=== PATIENT | female | born 1990 | race Native Hawaiian/Other Pacific Islander ===

== ENCOUNTER 2022-07-12 14:02 | Emergency (ER) | payer MEDICAID, SELFPAY ==
[2022-07-12 14:14] VITALS: BP 158/111; PULSE 76; RESP 21; TEMP 36.3; O2SAT 99; BMI 34.3
--- NOTE | 2022-07-12 15:19 | ED_ITS ---
HPI - General Adult General Time Seen by Provider: 15:19 <Kaylynn Knott MD - Last Filed: 07/12/22 15:46> Date Seen: 07/12/22 <Kaylynn Knott MD - Last Filed: 07/12/22 15:46> Chief complaint: Abdominal Pain <Kaylynn Knott MD - Last Filed: 07/12/22 15:46> Stated complaint: Vaginal bleeding, lightheaded <Kaylynn Knott MD - Last Filed: 07/12/22 15:46> Time Seen by Provider: 07/12/22 15:19 <Kaylynn Knott MD - Last Filed: 07/12/22 15:46> Source: patient and RN notes reviewed <Kaylnyn Knott MD - Last Filed: 07/12/22 15:46> Mode of arrival: ambulatory <Kaylynn Knott MD - Last Filed: 07/12/22 15:46> Limitations: no limitations <Kaylynn Knott MD - Last Filed: 07/12/22 15:46> History of Present Illness HPI narrative: Patient is a 31-year-old female coming in with heavy vaginal bleeding and pelvic pain. She is feeling pain shooting from her vaginal area into the rectal area. She has a history of irregular menses but notes since March her. Has been regular except that this cycle is early. She calculates that when she started bleeding she was on day 24 which should have been more mid cycle for her. Last year she did have evaluation for infertility, states she had a pelvic ultrasound, had an hCG and other workup with Dr. Pete. She has not been to date. She is not diabetic, has not noted other issues with bleeding. She is not have any problems with bleeding gums when she is brushing her teeth. Her mom has hypothyroidism and is diabetic. Patient has had her gallbladder out which is her only abdominal surgery. She felt nauseated when the pain became severe. She also describes significantly heavy bleeding. She states every time she standing upper moving she feels like she is wetting herself, she has been passing clots. No fevers. She denies any underlying urinary symptoms. <Kaylynn Knott MD - Last Filed: 07/12/22 15:46> Related Data Home medications: Previous Rx's Medication Instructions Recorded benzonatate 100 mg capsule 100 mg PO BID-TID PRN cough #14 06/01/22 caps <Kaylynn Knott MD - Last Filed: 07/12/22 15:46> Allergies/adverse reactions: Allergies Allergy/AdvReac Type Severity Reaction Status Date / Time avocado Allergy Unknown Itchy Verified 07/12/22 14:21 banana Allergy Unknown Itchy Verified 07/12/22 14:21 <Kaylynn Knott MD - Last Filed: 07/12/22 15:46> Review of Systems Status of ROS: Reports: 6 or more systems reviewed and unremarkable except as noted in History and below <Kaylynn Knott MD - Last Filed: 07/12/22 15:46> PFSH PFSH Medical History: Medical History Abrasion Allergic reaction Cholelithiasis with acute cholecystitis History of chlamydia infection Laceration Suicidal ideation <Kaylynn Knott MD - Last Filed: 07/12/22 15:46> Surgical History: Surgical History History of bunionectomy of left great toe (2006) History of hand surgery (2006) History of third molar tooth extraction (2007) <Kaylynn Knott MD - Last Filed: 07/12/22 15:46> Family History: Family History Mother Diabetes Thyroid disease Other Lung cancer Stomach cancer <Kaylynn Knott MD - Last Filed: 07/12/22 15:46> Social History: Social History Narrative: Exercises regularly (3x/week, walks 30-40 min) , 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, 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, 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 Non-smoker Social drinker (3/week) Hx of drug abuse- cocaine, marijuana, none since 04/2016 Smoking Status: Never smoker Non-prescribed substance use: denies use service: No <Kaylynn Knott MD - Last Filed: 07/12/22 15:46> Exam Const: Vital Signs, click to edit/add: Vital Signs - 24 hr 07/12/22 14:14 07/12/22 15:32 07/12/22 17:06 Temperature 97.4 F L Pulse Rate [Pulse Oximeter] 76 67 Respiratory Rate 21 20 Blood Pressure [Ri ght Upper Arm] 158/111 H 150/86 H Pulse Oximetry 99 97 99 Oxygen Delivery Me thod Room Air Room Air 07/12/22 18:15 07/12/22 18:13 07/12/22 18:30 Temperature Pulse Rate [Pulse Oximeter] 65 76 Respiratory Rate 18 18 Blood Pressure [Ri ght Upper Arm] 137/86 137/86 133/93 H Pulse Oximetry 98 98 Oxygen Delivery Me thod Room Air Room Air <Kaylynn Knott MD - Last Filed: 07/12/22 15:46> Vital Signs, click to edit/add: Vital Signs - 24 hr 07/12/22 14:14 07/12/22 15:32 07/12/22 17:06 Temperature 97.4 F L Pulse Rate [Pulse Oximeter] 76 67 Respiratory Rate 21 20 Blood Pressure [Ri ght Upper Arm] 158/111 H 150/86 H Pulse Oximetry 99 97 99 Oxygen Delivery Me thod Room Air Room Air 07/12/22 18:15 07/12/22 18:13 07/12/22 18:30 Temperature Pulse Rate [Pulse Oximeter] 65 76 Respiratory Rate 18 18 Blood Pressure [Ri ght Upper Arm] 137/86 137/86 133/93 H Pulse Oximetry 98 98 Oxygen Delivery Me thod Room Air Room Air <Tony Poon MD - Last Filed: 07/12/22 20:36> Documenting provider has reviewed patient's vital signs: yes <Kaylynn Chen MD - Last Filed: 07/12/22 15:46> Common normals: no apparent distress, average body habitus, oriented x3, no limitations, healthy appearing and alert <Kaylynn Knott MD - Last Filed: 07/12/22 15:46> General appearance: cooperative, comfortable, well kempt and well developed <Kaylynn Knott MD - Last Filed: 07/12/22 15:46> HENMT: Common normals: normocephalic, head/scalp atraumatic and hearing gr ossly normal bilaterally <Kaylynn Knott MD - Last Filed: 07/12/22 15:46> Head and scalp: normocephalic and atraumatic <Kaylynn Knott MD - Last Filed: 07/12/22 15:46> Eye: Common normals: PERRL, EOMs intact bilaterally, conjunctivae normal and no scleral icterus <Kaylynn Knott MD - Last Filed: 07/12/22 15:46> Conjunctiva: conjunctiva(e) normal <Kaylynn Knott MD - Last Filed: 07/12/22 15:46> Pupil: PERRL <Kaylynn Knott MD - Last Filed: 07/12/22 15:46> Neck & C-Spine: Common normals: full ROM, no lymphadenopathy, supple, no meningeal signs, no JVD and thyroid normal <Kaylynn Knott MD - Last Filed: 07/12/22 15:46> Thyroid: thyroid normal <Kaylynn Knott MD - Last Filed: 07/12/22 15:46> Resp: Common normals: normal respiratory effort, no retractions, no use of accessory muscles and clear to auscultation bilaterally <Kaylynn De La Paz MD - Last Filed: 07/12/22 15:46> Auscultation: clear to auscultation bilaterally <Kaylynn Knott MD - Last Filed: 07/12/22 15:46> Cardio: Common normals: no JVD, regular rate, regular rhythm, S1 normal heart sound, S2 normal heart sound, no gallops, no clicks and no murmurs <Kaylynn Knott MD - Last Filed: 07/12/22 15:46> Rate: regular rate <Kaylynn Knott MD - Last Filed: 07/12/22 15:46> Rhythm: regular rhythm <Kaylynn Knott MD - Last Filed: 07/12/22 15:46> Heart sounds: S1 normal and S2 normal <Kaylynn Knott MD - Last Filed: 07/12/22 15:46> GI: Common normals: Normal to inspection, nondistended, normoactive bowel sounds present, soft to palpation, no hepatosplenomegaly and no masses <Kaylynn Knott MD - Last Filed: 07/12/22 15:46> Palpation: soft and no hepatosplenomegaly <Kaylynn Knott MD - Last Filed: 07/12/22 15:46> Other: Has some mild suprapubic tenderness on palpation but I do not sense any rebound or guarding. <Kaylynn Knott MD - Last Filed: 07/12/22 15:46> Neuro: Common normals: oriented x3 <Kaylynn Knott MD - Last Filed: 07/12/22 15:46> Sensorium/orientation: alert <Kaylynn Knott MD - Last Filed: 07/12/22 15:46> Meningeal signs: no meningeal signs <Kaylynn Knott MD - Last Filed: 07/12/22 15:46> Psych: Appearance: well kempt <Kaylynn Knott MD - Last Filed: 07/12/22 15:46> Course Course Hospital Course: Will establish an IV and monitor patient on pulse oximetry. With her cu rrent vital signs, she is not exhibiting hypotension or tachycardia that would suggest extensive blood loss. Will look in her records and see when her pelvic ultrasound was done, see if she has had a TSH done recently as well. Will confirm that there is no . This certainly could be irregular menstrual bleeding or anovulatory cycle. Will give her some Toradol. If her hCG qualitative is positive, will need to quantify the hCG level as well as obtaining a pelvic ultrasound. I took over this patient, 80 of her some morphine for discomfort we did do a pelvic ultrasound which showed a thick endometrial lining, I discussed the take case with our jack strip assembler DrJoey Puentes she has out sending her home would acute and follow-up with OBGYN would be appropriate. I went over the risks benefits and side effects, of this including further bleeding pain, treatment with ibuprofen and a small amount of pain medication. She was reassured by this. <Kaylynn Knott MD - Last Filed: 07/12/22 15:46> Vital Signs Vital signs: Initial Vital Signs Temperature 97.4 F L 07/12/22 14:14 Temperature Source Temporal Artery Scan 07/12/22 14:14 Pulse Rate 76 07/12/22 14:14 Pulse Rhythm 07/12/22 14:14 Pulse Strength 3+ Normal 07/12/22 14:14 Respiratory Rate 21 07/12/22 14:14 Blood Pressure 158/111 H 07/12/22 14:14 Blood Pressure Mean 126 07/12/22 14:14 Pulse Oximetry 99 07/12/22 14:14 Oxygen Delivery Method 07/12/22 14:14 Vital Signs Temperature 97.4 F L 07/12/22 14:14 Pulse Rate 76 07/12/22 14:14 Respiratory Rate 21 07/12/22 14:14 Blood Pressure 158/111 H 07/12/22 14:14 Pulse Oximetry 99 07/12/22 14:14 Oxygen Delivery Method 07/12/22 14:14 Temperature 97.4 F L 07/12/22 14:14 Pulse Rate 76 07/12/22 18:30 Respiratory Rate 18 07/12/22 18:30 Blood Pressure 133/93 H 07/12/22 18:30 Pulse Oximetry 98 07/12/22 18:30 Oxygen Delivery Method 07/12/22 18:30 <Kaylynn Knott MD - Last Filed: 07/12/22 15:46> Initial Vital Signs Temperature 97.4 F L 07/12/22 14:14 Temperature Source Temporal Artery Scan 07/12/22 14:14 Pulse Rate 76 07/12/22 14:14 Pulse Rhythm 07/12/22 14:14 Pulse Strength 3+ Normal 07/12/22 14:14 Respiratory Rate 21 07/12/22 14:14 Blood Pressure 158/111 H 07/12/22 14:14 Blood Pressure Mean 126 07/12/22 14:14 Pulse Oximetry 99 07/12/22 14:14 Oxygen Delivery Method 07/12/22 14:14 Vital Signs Temperature 97.4 F L 07/12/22 14:14 Pulse Rate 76 07/12/22 14:14 Respiratory Rate 21 07/12/22 14:14 Blood Pressure 158/111 H 07/12/22 14:14 Pulse Oximetry 99 07/12/22 14:14 Oxygen Delivery Method 07/12/22 14:14 Temperature 97.4 F L 07/12/22 14:14 Pulse Rate 76 07/12/22 18:30 Respiratory Rate 18 07/12/22 18:30 Blood Pressure 133/93 H 07/12/22 18:30 Pulse Oximetry 98 07/12/22 18:30 Oxygen Delivery Method 07/12/22 18:30 <Tony Poon MD - Last Filed: 07/12/22 20:36> Medical Decision Making MDM Narrative Medical decision making narrative: Differential diagnosis includes but is not limited to uterine fibroids, intrauterine , ectopic , placenta previa, spontaneous , and cancers of the uterus and cervix. This includes the life-threatening complications of hypovolemia secondary to bleeding, ectopic and cancer. <Tony Poon MD - Last Filed: 07/12/22 20:36> Medical Records Medical records reviewed: Yes I reviewed the patient's medical records <Kaylynn Knott MD - Last Filed: 07/12/22 15:46> Medical records narrative: TSH was normal at 2.050 on 11/19/2021. Hysterosalpingogram was normal on 07/23/2021 with normal spillage of contrast from fallopian tubes into peritoneum. No filling defect in the endometrium. Ultrasound done on 06/01/2021 showed thickened endometrium measuring 15 mm. No other findings. <Kaylynn Knott MD - Last Filed: 07/12/22 15:46> Lab Data Lab results reviewed: Yes I reviewed the patient's lab results <Tony Poon MD - Last Filed: 07/12/22 20:36> Labs: Lab Results 07/12/22 07/12/22 07/12/22 Range/Units 15:55 15:55 15:55 WBC 10.25 (4.50-11.00) K/uL RBC 4.94 (4.00-5.20) m/uL Hgb 15.4 (12.0-16.0) gm/dL Hct 43.7 (33.0-51.0) % MCV 89 (80-100) fL MCH 31 (26-34) pg MCHC 35 (32-36) gm/dL RDW Coeff of Summer 12.7 (11.5-15.5) % Plt Count 223 (140-440) K/uL Neut % (Auto) 69.2 (42.0-72.0) % Lymph % (Auto) 23.9 (20-44) % Kaufman % (Auto) 4.8 (0.0-11.0) % Eos % (Auto) 1.7 (0.0-7.0) % Baso % (Auto) 0.3 (0.0-3.0) % Neut # (Auto) 7.10 H (1.7-7.0) K/uL Lymph # (Auto) 2.45 (0.90-2.90) K/uL Kaufman # (Auto) 0.50 (0.00-0.90) K/UL Eos # (Auto) 0.17 (0.00-0.50) K/uL Baso # (Auto) 0.03 (0.00-0.30) K/uL Sodium 138 (135-149) mmol/L Potassium 3.1 L (3.6-5.1) mmol/L Chloride 107 (96-114) mmol/L Carbon Dioxide 22 (20-32) mmol/L BUN 7 (5-24) mg/dL Creatinine 0.5 (0.5-1.5) mg/dL Estimated Creat Clear 140.78 Estimated GFR 129 ml/min Glucose 112 (60-115) mg/dL Calcium 8.6 (8.4-10.6) mg/dL HCG, Qual Negative (Negative) <Kaylynn Knott MD - Last Filed: 07/12/22 15:46> Lab Results 07/12/22 07/12/22 07/12/22 Range/Units 15:55 15:55 15:55 WBC 10.25 (4.50-11.00) K/uL RBC 4.94 (4.00-5.20) m/uL Hgb 15.4 (12.0-16.0) gm/dL Hct 43.7 (33.0-51.0) % MCV 89 (80-100) fL MCH 31 (26-34) pg MCHC 35 (32-36) gm/dL RDW Coeff of Summer 12.7 (11.5-15.5) % Plt Count 223 (140-440) K/uL Neut % (Auto) 69.2 (42.0-72.0) % Lymph % (Auto) 23.9 (20-44) % Kaufman % (Auto) 4.8 (0.0-11.0) % Eos % (Auto) 1.7 (0.0-7.0) % Baso % (Auto) 0.3 (0.0-3.0) % Neut # (Auto) 7.10 H (1.7-7.0) K/uL Lymph # (Auto) 2.45 (0.90-2.90) K/uL Kaufman # (Auto) 0.50 (0.00-0.90) K/UL Eos # (Auto) 0.17 (0.00-0.50) K/uL Baso # (Auto) 0.03 (0.00-0.30) K/uL Sodium 138 (135-149) mmol/L Potassium 3.1 L (3.6-5.1) mmol/L Chloride 107 (96-114) mmol/L Carbon Dioxide 22 (20-32) mmol/L BUN 7 (5-24) mg/dL Creatinine 0.5 (0.5-1.5) mg/dL Estimated Creat Clear 140.78 Estimated GFR 129 ml/min Glucose 112 (60-115) mg/dL Calcium 8.6 (8.4-10.6) mg/dL HCG, Qual Negative (Negative) <Tony Poon MD - Last Filed: 07/12/22 20:36> Imaging Data Transvaginal ultrasound: Radiologist's impression: Patient: SHELLY BACH Facility: [facility] Site . Site : 1990 Study: US Pelvis -07/12/2022 5:57:52 PM Ordering Physician: Ayah Jimenez Final Report: INDICATION: Abdominal pain, menorrhagia. TECHNIQUE: Ultrasound pelvis transvaginal. Real-time sonographic images with spectral and color Doppler imaging of the ovaries were obtained. COMPARISON: Pelvic ultrasound dated 06/01/2021. FINDINGS: Uterus: 8.5 x 4.6 x 4.5 cm. Endometrium: Persistent mild abnormal thickening of the endometrium. The endometrial thickness measures 1.8 cm. Mass: No uterine fibroids identified. Free fluid: No significant pelvic free fluid. Right ovary: 3.3 x 2.2 x 2.4 cm. No ovarian or adnexal masses. Normal arterial and venous blood flow. Left ovary: 3.2 x 1.9 x 2.0 cm. No ovarian or adnexal masses. Normal arterial and venous blood flow. IMPRESSION: Persistent mild abnormal thickening of the endometrium, measuring up to 1.8 cm in thickness. This may reflect component of endometrial hyperplasia, recommend follow-up pelvic ultrasound in 6-12 weeks. Dictated by Ronny Trotter MD @ 07/12/2022 6:25:57 PM (Electronic Signature) <Tony Poon MD - Last Filed: 07/12/22 20:36> Discharge Plan Discharge Clinical Impression: Dysfunctional uterine bleeding, Abdominal pain <Kaylynn Knott MD - Last Filed: 07/12/22 15:46> Patient Disposition: Home w/ Parent or Adult <Kaylynn Knott MD - Last Filed: 07/12/22 15:46> Condition: Stable <Kaylynn Knott MD - Last Filed: 07/12/22 15:46> Instructions: Abnormal (Dysfunctional) Uterine Bleeding (ED), Abdominal Pain (ED) <Kaylynn Knott MD - Last Filed: 07/12/22 15:46> Additional Instructions: Home rest use of medications as directed, follow-up with OBGYN at the clinic, we discussed this. instymeds for pain medications, ibuprofen is a single best pain medication for your bleeding, <Kaylynn Knott MD - Last Filed: 07/12/22 15:46> Prescriptions: No Action benzonatate 100 mg capsule 100 mg PO BID-TID PRN (Reason: cough) Qty: 14 0RF <Kaylynn Knott MD - Last Filed: 07/12/22 15:46> Follow Up/Referrals: Roxanna Crawford MD [Staff Physician] - Lu Rosen DNP [Nurse Practitioner] - <Kaylynn Knott MD - Last Filed: 07/12/22 15:46> Stand Alone Forms: MyHealth Info Instructions <Kaylynn Knott MD - Last Filed: 07/12/22 15:46>
[2022-07-12 15:32] VITALS: O2SAT 97
[2022-07-12] MEDS: 0.9 % SODIUM CHLORIDE 1000 ml 1,000 ML IV (15:58)
[2022-07-12] MEDS: KETOROLAC 15 MG/ML inj IVP (15:59)
[2022-07-12 16:07] LABS: Basophils Absolute Auto 0.03 K/uL (0.00-0.30); Basophils Percent Auto 0.3 % (0.0-3.0); Eosinophils Absolute Auto 0.17 K/uL (0.00-0.50); Eosinophils Percent Auto 1.7 % (0.0-7.0); Hematocrit 43.7 % (33.0-51.0); Hemoglobin* 15.4 gm/dL (12.0-16.0); Immature Granulocytes Abs Auto 0.01 K/uL (0.00-0.30); Immature Granulocytes Pct Auto 0.1 %; Lymphocytes Absolute Auto 2.45 K/uL (0.90-2.90); Lymphocytes Percent Auto 23.9 % (20-44); Mean Corpuscular HGB Conc 35 gm/dL (32-36); Mean Corpuscular Hemoglobin 31 pg (26-34); Mean Corpuscular Volume 89 fL (80-100); Monocytes Percent Auto 4.8 % (0.0-11.0); Neutrophils Percent Auto 69.2 % (42.0-72.0); Platelet Count* 223 K/uL (140-440); RDW Coefficient of Variation % 12.7 % (11.5-15.5); Red Blood Count 4.94 m/uL (4.00-5.20); White Blood Count* 10.25 K/uL (4.50-11.00)
[2022-07-12 16:14] LABS: Slide Review Reflex No
[2022-07-12 16:23] LABS: Chloride* 107 mmol/L (96-114)
[2022-07-12 16:24] LABS: Potassium* 3.1 mmol/L (3.6-5.1); Sodium* 138 mmol/L (135-149)
[2022-07-12 16:26] LABS: Creatinine* 0.5 mg/dL (0.5-1.5); Est. Creatinine Clearance* 140.78; Estimated Glomerular Filt Rate 129 ml/min
[2022-07-12 16:27] LABS: Blood Urea Nitrogen* 7 mg/dL (5-24); Calcium* 8.6 mg/dL (8.4-10.6); Carbon Dioxide* 22 mmol/L (20-32); Glucose* 112 mg/dL (60-115)
[2022-07-12 17:02] LABS: HCG Qualitative Serum* Negative (Negative)
--- NOTE | 2022-07-12 17:05 | CRLHL7_ITS ---
For Patients: As a result of the Century Cures Act, medical imaging exams and procedure reports are released immediately into your electronic medical record. You may view this report before your referring provider. If you have questions, please contact your health care provider. INDICATION: Abdominal pain, menorrhagia. TECHNIQUE: Ultrasound pelvis transvaginal. Real-time sonographic images with spectral and color Doppler imaging of the ovaries were obtained. COMPARISON: Pelvic ultrasound dated 06/01/2021. FINDINGS: Uterus: 8.5 x 4.6 x 4.5 cm. Endometrium: Persistent mild abnormal thickening of the endometrium. The endometrial thickness measures 1.8 cm. Mass: No uterine fibroids identified. Free fluid: No significant pelvic free fluid. Right ovary: 3.3 x 2.2 x 2.4 cm. No ovarian or adnexal masses. Normal arterial and venous blood flow. Left ovary: 3.2 x 1.9 x 2.0 cm. No ovarian or adnexal masses. Normal arterial and venous blood flow. IMPRESSION: Persistent mild abnormal thickening of the endometrium, measuring up to 1.8 cm in thickness. This may reflect component of endometrial hyperplasia, recommend follow-up pelvic ultrasound in 6-12 weeks. Dictated by Ronny Trotter MD @ 07/12/2022 6:25:57 PM (Electronically Signed)
[2022-07-12 17:06] VITALS: BP 150/86; PULSE 67; RESP 20; O2SAT 99
[2022-07-12] MEDS: MORPHINE 4 MG/ML INJ IVP (17:39)
--- NOTE | 2022-07-12 17:44 | ED.NURSE ---
was up to commode had bloody. foul smelling urine with a few small clots.. wears a incontinent brief.
[2022-07-12 18:13] VITALS: BP 137/86
[2022-07-12 18:15] VITALS: BP 137/86; PULSE 65; RESP 18; O2SAT 98
[2022-07-12 18:30] VITALS: BP 133/93; PULSE 76; RESP 18; O2SAT 98
== END 2022-07-12 19:51 | disposition home or self-care (01) ==
PROVIDERS: Family Medicine; Emergency Provider Family Medicine
DX: N93.8 Other specified abnormal uterine and vaginal bleeding (principal); R10.9 Unspecified abdominal pain
CPT/HCPCS: 36415; 76830; 80048; 84703; 85025; 93976; 94761; 96361; 96374; 99284; J1885; J2270; J7030

== ENCOUNTER 2022-11-01 13:38 | Emergency (ER) | payer MEDICAID, SELFPAY ==
[2022-11-01] VITALS (16 sets, daily range): BP systolic 124–167; BP diastolic 77–112; PULSE 52–78; RESP 16; TEMP 37.1; O2SAT 96–100; BMI 37.1
--- NOTE | 2022-11-01 14:34 | ED_ITS ---
HPI - General Adult General Chief complaint: Shortness of Breath/Dyspnea Stated complaint: Shortness of breath Time Seen by Provider: 11/01/22 13:53 History of Present Illness HPI narrative: Patient has been dealing with infertility and heavy vaginal bleeding for a while now. Was in the ER for increased bleeding in june. This was controlled and then did not start bleeding again until September 08. Has been working with [facility]. Had a biopsy on 10/24 and patient was called on 10/28 stating it was disordered proliferance edometrium and needed to start on megestrol and see [facility] tomorrow. Patient stated she noticed the shortness of breath on monday when she took the full dose of this medication . Called today and was advised to come to the ER. Has been shakey, headache, and high BP. 32-year-old woman presenting to the emergency department with concern of I believe potential pulmonary embolus and on advice of clinic to present here for further evaluation. History of dysfunctional uterine bleeding recent biopsy showing a endometrial hyperplasia with atypia initiated on megestrol and to see [facility] tomorrow. Initiated on megestrol now having taken nearly 3 days. With 1st full dose she says she just felt shaky short of breath. Within a day bleeding had becomes can not. She decreased dosing due to what she thought were associated symptoms and then has noted darker with diff risk blood returned though not much more. Last night she also had right pelvic area pain but in particular leg cramps on the left at work probably keeping her awake. This is not a new phenomenon. At work today was still feeling this shortness of breath little more lightheaded checked her blood pressure and it was in 190/1 teens. Has been feeling like her heart is beating really hard. She has has not actually checked rate. This point called in. No fever. No cough or cold symptoms. Does not have a personal family history of coagulopathy a nor arrhythmia/dysrhythmia. Does have a history of PCOS. Becomes tearful recounting some of these symptoms. Prior to taking megestrol had not been on oral contraceptives. Otherwise been feeling bloated. Did manage to have a bowel movement overnight which did not change her symptoms. Related Data Previous Rx's Medication Instructions Recorded megestrol 40 mg tablet 80 mg (2 x 40 mg) PO BID #90 tabs 10/28/22 lorazepam 1 mg tablet 0.5 - 1 mg (0.5 - 1 x 1 mg) PO TID 11/01/22 PRN anxiety #8 tabs Allergies Allergy/AdvReac Type Severity Reaction Status Date / Time avocado Allergy Unknown Itchy Verified 11/01/22 13:46 banana Allergy Unknown Itchy Verified 11/01/22 13:46 Review of Systems Status of ROS: Reports: 6 or more systems reviewed and unremarkable except as noted in History and below PFSH PFSH Medical History Suicidal ideation ?R45.851 - Suicidal ideations (ICD-10) History of chlamydia infection ?Z86.19 - Personal history of other infectious and parasitic diseases (ICD- 10) Cholelithiasis with acute cholecystitis ?K80.00 - Calculus of gallbladder with acute cholecystitis without obstruction (ICD-10) Surgical History History of cholecystectomy ?Z90.49 - Acquired absence of other specified parts of digestive tract (ICD- 10) History of third molar tooth extraction (2007) ?K08.409 - Partial loss of teeth, unspecified cause, unspecified class (ICD- 10) History of hand surgery (2006) ?Z98.890 - Other specified postprocedural states (ICD-10) History of bunionectomy of left great toe (2006) ?Z98.890 - Other specified postprocedural states (ICD-10) Family History Mother Diabetes Thyroid disease Other Lung cancer Stomach cancer Social History Narrative: Exercises regularly (3x/week, walks 30-40 min) , 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 Clearly upset. Tears well up during conversation. She is little shaky. Mildly labored in breathing but not tachypneic. Lungs are clear. Heart with regular rate and rhythm though an occasional irregular beat. No murmur rub appreciated. Cranial nerves 2-12 look to be intact. Abdomen is soft and mildly tender in the right lower abdomen/pelvis. Lower extremities are without edema. Sense of fullness subjective to palpation of the left calf. Negative Homans. Const: Vital Signs, click to edit/add: Vital Signs - 24 hr 11/01/22 13:56 11/01/22 14:43 11/01/22 14:45 Temperature 98.8 F Pulse Rate 52 L 59 L Pulse Rate [Pulse Oximeter] 78 Respiratory Rate 16 Blood Pressure 137/92 H Blood Pressure [Ri ght Upper Arm] 167/112 H Pulse Oximetry 99 97 98 Oxygen Delivery Me thod Room Air 11/01/22 14:46 11/01/22 15:00 11/01/22 15:03 Temperature Pulse Rate 59 L 59 L 61 Pulse Rate [Pulse Oximeter] Respiratory Rate Blood Pressure 127/92 H Blood Pressure [Ri ght Upper Arm] Pulse Oximetry 98 97 97 Oxygen Delivery Me thod 11/01/22 15:15 11/01/22 15:30 11/01/22 15:32 Temperature Pulse Rate 57 L 55 L 61 Pulse Rate [Pulse Oximeter] Respiratory Rate Blood Pressure 124/77 Blood Pressure [Ri ght Upper Arm] Pulse Oximetry 98 96 98 Oxygen Delivery Me thod 11/01/22 15:45 11/01/22 16:00 11/01/22 16:02 Temperature Pulse Rate 54 L 56 L 58 L Pulse Rate [Pulse Oximeter] Respiratory Rate Blood Pressure 127/80 Blood Pressure [Ri ght Upper Arm] Pulse Oximetry 96 98 100 Oxygen Delivery Me thod 11/01/22 16:20 11/01/22 16:31 11/01/22 16:32 Temperature Pulse Rate 72 61 65 Pulse Rate [Pulse Oximeter] Respiratory Rate Blood Pressure 128/79 Blood Pressure [Ri ght Upper Arm] Pulse Oximetry 100 99 98 Oxygen Delivery Me thod 11/01/22 16:45 Temperature Pulse Rate 64 Pulse Rate [Pulse Oximeter] Respiratory Rate Blood Pressure Blood Pressure [Ri ght Upper Arm] Pulse Oximetry 98 Oxygen Delivery Me thod Documenting provider has reviewed patient's vital signs: yes Course Vital Signs Vital signs: Initial Vital Signs Temperature 98.8 F 11/01/22 13:56 Temperature Source Temporal Artery Scan 11/01/22 13:56 Pulse Rate 78 11/01/22 13:56 Pulse Rhythm Regular 11/01/22 13:56 Pulse Strength 3+ Normal 11/01/22 13:56 Respiratory Rate 16 11/01/22 13:56 Blood Pressure 167/112 H 11/01/22 13:56 Blood Pressure Mean 130 H 11/01/22 13:56 Blood Pressure Position Sitting 11/01/22 13:56 Pulse Oximetry 99 11/01/22 13:56 Oxygen Delivery Method Room Air 11/01/22 13:56 Vital Signs Temperature 98.8 F 11/01/22 13:56 Pulse Rate 78 11/01/22 13:56 Respiratory Rate 16 11/01/22 13:56 Blood Pressure 167/112 H 11/01/22 13:56 Pulse Oximetry 99 11/01/22 13:56 Oxygen Delivery Method Room Air 11/01/22 13:56 Temperature 98.8 F 11/01/22 13:56 Pulse Rate 64 11/01/22 16:45 Respiratory Rate 16 11/01/22 13:56 Blood Pressure 128/79 11/01/22 16:32 Pulse Oximetry 98 11/01/22 16:45 Oxygen Delivery Method Room Air 11/01/22 13:56 Medical Decision Making MDM Narrative Medical decision making narrative: Suspect this is primarily smoldering anxiety exacerbating most symptoms. Certainly has real concerns. Will screen with some labs looking for pulmonary emboli though I think this is less likely to be the issue. Place IV. Give lorazepam and reassess symptoms at that point. EKG looking for evidence of dysrhythmia. Recheck hemoglobin which was I believe 14.7 about 5 days ago. On reevaluation, is markedly improved. Understandably a little sleepy. Heart rate has come down and blood pressure quite improved to essentially normal. No longer with as much chest discomfort and not short of air. D-dimer is mildly elevated. Discussed that I suspect this is more related to known inflammatory process but can?t exactly rule out pulmonary embolus though vitals are good and related symptoms have essentially resolved. I think that anxiety still most likely explanation. We both agree to defer CT imaging, monitoring for worsening condition over the next couple of days. She has close follow up tomorrow. See patient discharge plan. Medical Records Medical records reviewed: Yes I reviewed the patient's medical records Lab Data Lab results reviewed: Yes I reviewed the patient's lab results Labs: Lab Results 11/01/22 Range/Units 14:30 WBC 10.05 (4.50-11.00) K/uL RBC 4.70 (4.00-5.20) m/uL Hgb 14.4 (12.0-16.0) gm/dL Hct 42.0 (33.0-51.0) % MCV 89 (80-100) fL MCH 31 (26-34) pg MCHC 34 (32-36) gm/dL RDW Coeff of Summer 12.1 (11.5-15.5) % Plt Count 243 (140-440) K/uL Neut % (Auto) 62.7 (42.0-72.0) % Lymph % (Auto) 28.9 (20-44) % [place] % (Auto) 5.9 (0.0-11.0) % Eos % (Auto) 2.1 (0.0-7.0) % Baso % (Auto) 0.2 (0.0-3.0) % Neut # (Auto) 6.31 (1.7-7.0) K/uL Lymph # (Auto) 2.90 (0.90-2.90) K/uL [place] # (Auto) 0.60 (0.00-0.90) K/UL Eos # (Auto) 0.21 (0.00-0.50) K/uL Baso # (Auto) 0.02 (0.00-0.30) K/uL D-Dimer Quant (PE/DVT) 0.73 H (0.00-0.50) ug/ml Sodium 140 (135-149) mmol/L Potassium 3.7 (3.6-5.1) mmol/L Chloride 105 (96-114) mmol/L Carbon Dioxide 23 (20-32) mmol/L BUN 9 (5-24) mg/dL Creatinine 0.6 (0.5-1.5) mg/dL Estimated Creat Clear 116.24 Estimated GFR 122 ml/min Glucose 93 (60-115) mg/dL Calcium (8.4-10.6) mg/dL ECG Data Attestation: I personally reviewed and interpreted this ECG as follows: (Sinus bradycardia. Rate of 58 no acute ischemic changes) Discharge Plan Discharge Clinical Impression: DUB (dysfunctional uterine bleeding), Anxiety Patient Disposition: Home w/ Parent or Adult Condition: Improved Additional Instructions: I think it has been a beautiful day. Some exercise outside might do you good. Otherwise stay well hydrated. Return for increasing bleeding where would be soaking through 1 heavy pad an hour for 2 consecutive hours. Of course follow-up as scheduled tomorrow. can take lorazepam for recurrence of today's symptoms but return for increasing and persistent shortness of breath, increasing chest pain, worsening lightheadedness. Prescriptions: New lorazepam 1 mg tablet 0.5 - 1 mg PO TID PRN (Reason: anxiety) Qty: 8 0RF No Action megestrol 40 mg tablet 80 mg PO BID Qty: 90 1RF Follow Up/Referrals: Provider,Not a Local [Primary Care Provider] - Stand Alone Forms: [employer] Info Instructions
[2022-11-01 14:47] LABS: Basophils Absolute Auto 0.02 K/uL (0.00-0.30); Basophils Percent Auto 0.2 % (0.0-3.0); Eosinophils Absolute Auto 0.21 K/uL (0.00-0.50); Eosinophils Percent Auto 2.1 % (0.0-7.0); Hemoglobin* 14.4 gm/dL (12.0-16.0); Immature Granulocytes Abs Auto 0.02 K/uL (0.00-0.30); Immature Granulocytes Pct Auto 0.2 %; Lymphocytes Percent Auto 28.9 % (20-44); Mean Corpuscular HGB Conc 34 gm/dL (32-36); Mean Corpuscular Hemoglobin 31 pg (26-34); Mean Corpuscular Volume 89 fL (80-100); Monocytes Percent Auto 5.9 % (0.0-11.0); Neutrophils Absolute Auto 6.31 K/uL (1.7-7.0); Neutrophils Percent Auto 62.7 % (42.0-72.0); Platelet Count* 243 K/uL (140-440); RDW Coefficient of Variation % 12.1 % (11.5-15.5); White Blood Count* 10.05 K/uL (4.50-11.00)
[2022-11-01] MEDS: LORazepam 2 MG/ML inj 0.5 MG IVP (14:47)
[2022-11-01] MEDS: 0.9 % SODIUM CHLORIDE 1000 ml 1,000 ML IV (14:48)
[2022-11-01 14:52] LABS: Slide Review Reflex No
[2022-11-01 14:59] LABS: Blood Urea Nitrogen* 9 mg/dL (5-24); Carbon Dioxide* 23 mmol/L (20-32); Chloride* 105 mmol/L (96-114); Creatinine* 0.6 mg/dL (0.5-1.5); Est. Creatinine Clearance* 116.24; Estimated Glomerular Filt Rate 122 ml/min; Potassium* 3.7 mmol/L (3.6-5.1); Sodium* 140 mmol/L (135-149)
[2022-11-01 15:00] LABS: Glucose* 93 mg/dL (60-115)
[2022-11-01 15:08] LABS: D Dimer Quantitative* 0.73 ug/ml (0.00-0.50)
== END 2022-11-01 16:56 | disposition home or self-care (01) ==
PROVIDERS: Emergency Provider Family Medicine
DX: N93.8 Other specified abnormal uterine and vaginal bleeding (principal); F41.9 Anxiety disorder, unspecified
CPT/HCPCS: 36415; 80048; 85025; 85379; 93005; 96361; 96374; 99284; J2060; J7030

== ENCOUNTER 2023-01-27 06:36 | Emergency (ER) | payer MEDICAID, SELFPAY ==
[2023-01-27 06:46] VITALS: BP 158/96; PULSE 79; RESP 16; TEMP 36; O2SAT 98; BMI 38.4
--- NOTE | 2023-01-27 07:28 | CRLHL7_ITS ---
For Patients: As a result of the Century Cures Act, medical imaging exams and procedure reports are released immediately into your electronic medical record. You may view this report before your referring provider. If you have questions, please contact your health care provider. DATE: 01/27/2023 CLINICAL HISTORY: Patient with left sided numbness. TECHNIQUE: Standard helical CT image acquisition through the intracranial circulation following intravenous administration of contrast material with bolus tracking. 2D and 3D MIP images for post-processing were performed and interpreted on an independent workstation and 3D images were permanently archived. COMPARISON: CT same day. FINDINGS: There is no cerebral aneurysm or large vessel occlusion. The right internal carotid artery is normal. The right middle cerebral artery and its branches are normal. The right anterior cerebral artery and its branches are normal. The left internal carotid artery is normal. The left middle cerebral artery and its branches are normal. The left anterior cerebral artery and its branches are normal. The anterior communicating artery is well visualized and appears normal. The right vertebral artery and PICA are normal. The left vertebral artery and PICA are normal. The vertebral arteries are codominant. The basilar artery is patent and appears normal. The right posterior cerebral artery is normal. The left posterior cerebral artery is normal. The visualized venous structures are patent. IMPRESSION: Normal CT angiogram of the head without intracranial aneurysm or other neurovascular abnormality. Please note that all CT scans at this facility use dose modulation, iterative reconstruction, and/or weight-based dosing when appropriate to reduce radiation dose to as low as reasonably achievable. Dictated by Tanya Jackson MD @ 01/27/2023 11:59:44 AM (Electronically Signed)
--- NOTE | 2023-01-27 07:28 | CRLHL7_ITS ---
For Patients: As a result of the Century Cures Act, medical imaging exams and procedure reports are released immediately into your electronic medical record. You may view this report before your referring provider. If you have questions, please contact your health care provider. INDICATION: Left-sided numbness. COMPARISON: 09/02 TECHNIQUE: Noncontrast CT head. FINDINGS: Normal brain parenchymal morphology. Focal collection of CSF attenuation adjacent to the anterior left temporal lobe consistent with arachnoid cyst. No acute intracranial hemorrhage. No acute infarct. No midline shift. No abnormal ventricular dilatation. Normal calvarium and skull base. Visualized paranasal sinuses and mastoid air cells are clear. Normal orbits bilaterally. IMPRESSION: 1. No interval change 2. No acute intracranial abnormality. Please note that all CT scans at this facility use dose modulation, iterative reconstruction, and/or weight-based dosing when appropriate to reduce radiation dose to as low as reasonably achievable. Dictated by Julius Winn MD @ 01/27/2023 8:35:53 AM (Electronically Signed)
--- NOTE | 2023-01-27 07:35 | CRLHL7_ITS ---
For Patients: As a result of the Century Cures Act, medical imaging exams and procedure reports are released immediately into your electronic medical record. You may view this report before your referring provider. If you have questions, please contact your health care provider. DATE: 01/27/2023 CLINICAL HISTORY: Patient with left-sided numbness. TECHNIQUE: Standard helical CT image acquisition of the neck up to the skull base after bolus intravenous contrast enhancement. 2D and 3D MIP images for post-processing were performed and interpreted on an independent workstation and 3D images were permanently archived. COMPARISON: CT same day. FINDINGS: The origins of the great vessels from the aortic arch are patent. The origin of the right vertebral artery is patent. The origin of the left vertebral artery is patent. The common carotid arteries are patent. There is no stenosis at the origin of the right internal carotid artery. There is no stenosis at the origin of the left internal carotid artery. The rest of the cervical segments of the internal carotid arteries are patent up to the skull base. The right vertebral artery is dominant. The cervical segments of the vertebral arteries are patent up to the skull base. The visualized lung apices are unremarkable. The thyroid gland is unremarkable. The soft tissues of the neck are unremarkable. There are degenerative changes in the cervical spine. IMPRESSION: Normal CT angiogram of the neck. Please note that all CT scans at this facility use dose modulation, iterative reconstruction, and/or weight-based dosing when appropriate to reduce radiation dose to as low as reasonably achievable. Dictated by Tanya Jackson MD @ 01/27/2023 11:57:25 AM (Electronically Signed)
--- NOTE | 2023-01-27 07:47 | ED_ITS ---
HPI - General Adult General Date Seen: 01/27/23 Chief complaint: Neuro Symptoms/Altered Deficit Stated complaint: L side of body numb/tingly Time Seen by Provider: 01/27/23 07:04 Source: patient Mode of arrival: ambulatory Limitations: no limitations History of Present Illness HPI narrative: Patient is a 32-year-old female who presents with left-sided numbness that has been progressive over the past 48 hours. This began in her left hand and arm which she attributed to just sleeping wrong. The numbness has now progressed to the left side of her face and her left leg. There is no associated weakness. Her skin feels like there are ants crawling on it. She has not noticed a facial droop, slurred speech, blurry vision. She has been able to continue to use the arm and leg normally but catches herself rubbing the hand and forearm. She has been under a great deal of stress recently. Her recently had to return to [place] for some immigration testing. She stopped taking Megace last week as it was causing weight gain. She had an IUD placed and then removed in early November because of pain and placement in the cervical canal. Last week the IUD was replaced and she is having some uterine cramping but nothing severe. She carries diagnosis of stage I endometrial cancer. She is not a smoker. She has had elevated blood pressures. She is not currently on any medications. Related Data Allergies Allergy/AdvReac Type Severity Reaction Status Date / Time avocado Allergy Unknown Itchy Verified 01/27/23 08:04 banana Allergy Unknown Itchy Verified 01/27/23 08:04 Review of Systems Narrative: Review of systems is outlined above otherwise noted to be negative. [facility] Medical History Suicidal ideation ?R45.851 - Suicidal ideations (ICD-10) History of chlamydia infection ?Z86.19 - Personal history of other infectious and parasitic diseases (ICD- 10) Cholelithiasis with acute cholecystitis ?K80.00 - Calculus of gallbladder with acute cholecystitis without obstruction (ICD-10) Surgical History History of cholecystectomy ?Z90.49 - Acquired absence of other specified parts of digestive tract (ICD- 10) History of third molar tooth extraction (2007) ?K08.409 - Partial loss of teeth, unspecified cause, unspecified class (ICD- 10) History of hand surgery (2006) ?Z98.890 - Other specified postprocedural states (ICD-10) History of bunionectomy of left great toe (2006) ?Z98.890 - Other specified postprocedural states (ICD-10) Family History Mother Diabetes Thyroid disease Other Lung cancer Stomach cancer Social History Narrative: Exercises regularly (3x/week, walks 30-40 min) , 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 Blood pressure is mildly elevated. HEENT: Conjunctiva clear. Tympanic membranes are pearly white bilaterally. Posterior pharynx is clear without erythema or exudate. Neck is supple without adenopathy, thyromegaly, carotid bruit. Lungs: Clear to auscultation in all klein. No wheezes, rales, rhonchi. Heart: Regular rate and rhythm without murmur. Abdomen: Soft and nontender. No guarding, rigidity, rebound. Bowel sounds are normal. No palpable masses. Extremities: No cyanosis or edema. Good distal pulses. Skin: No abnormalities noted of the exposed skin. Neurologic: Awake, alert, fully oriented. Funduscopic exam is normal. Extraocular movements are normal. She notes diminished sensation in her left forearm, cheek, chin. No facial droop. Tongue protrudes in the midline. Her smile is symmetric. Her speech is clear. She notices decreased sensation in her entire left arm and her anterior left thigh. She has normal strength bilaterally. Her ribbon tier strength may be diminished on the left compared to the right. Lower extremity strength is normal. Reflexes are symmetric. Fine finger movements are normal. Const: Vital Signs, click to edit/add: Vital Signs - 24 hr 01/27/23 06:46 Temperature 96.8 F L Pulse Rate [Left P ulse Oximeter] 79 Respiratory Rate 16 Blood Pressure [Ri ght Upper Arm] 158/96 H Pulse Oximetry 98 Oxygen Delivery Me thod Room Air Course Course Hospital Course: Patient was seen and examined. Labs ordered include CBC, BMP, TSH. CT angio of her head and neck is ordered along with a CT of her brain with contrast. Patient's care is turned over to Dr. Mendoza at change of shift. Vital Signs Vital signs: Initial Vital Signs Temperature 96.8 F L 01/27/23 06:46 Temperature Source Temporal Artery Scan 01/27/23 06:46 Pulse Rate 79 01/27/23 06:46 Respiratory Rate 16 01/27/23 06:46 Blood Pressure 158/96 H 01/27/23 06:46 Blood Pressure Mean 116 H 01/27/23 06:46 Blood Pressure Position Sitting 01/27/23 06:46 Pulse Oximetry 98 01/27/23 06:46 Oxygen Delivery Method Room Air 01/27/23 06:46 Vital Signs Temperature 96.8 F L 01/27/23 06:46 Pulse Rate 79 01/27/23 06:46 Respiratory Rate 16 01/27/23 06:46 Blood Pressure 158/96 H 01/27/23 06:46 Pulse Oximetry 98 01/27/23 06:46 Oxygen Delivery Method Room Air 01/27/23 06:46 Temperature 96.8 F L 01/27/23 06:46 Pulse Rate 79 01/27/23 06:46 Respiratory Rate 16 01/27/23 06:46 Blood Pressure 158/96 H 01/27/23 06:46 Pulse Oximetry 98 01/27/23 06:46 Oxygen Delivery Method Room Air 01/27/23 06:46 Medical Decision Making Lab Data Labs: Lab Results 01/27/23 Range/Units 07:37 WBC 10.08 (4.50-11.00) K/uL RBC 5.05 (4.00-5.20) m/uL Hgb 15.1 (12.0-16.0) gm/dL Hct 43.2 (33.0-51.0) % MCV 86 (80-100) fL MCH 30 (26-34) pg MCHC 35 (32-36) gm/dL RDW Coeff of Summer 12.7 (11.5-15.5) % Plt Count 255 (140-440) K/uL Neut % (Auto) 71.0 (42.0-72.0) % Lymph % (Auto) 20.5 (20-44) % [place] % (Auto) 6.3 (0.0-11.0) % Eos % (Auto) 1.8 (0.0-7.0) % Baso % (Auto) 0.3 (0.0-3.0) % Neut # (Auto) 7.16 H (1.7-7.0) K/uL Lymph # (Auto) 2.07 (0.90-2.90) K/uL [place] # (Auto) 0.60 (0.00-0.90) K/UL Eos # (Auto) 0.18 (0.00-0.50) K/uL Baso # (Auto) 0.03 (0.00-0.30) K/uL Abs Immat Gran (auto) 0.01 (0.00-0.30) K/uL Imm/Tot Granulo (auto) 0.1 % Discharge Plan Discharge Follow Up/Referrals: Adalberto Todd MD [Primary Care Provider] -
[2023-01-27 07:50] LABS: Basophils Absolute Auto 0.03 K/uL (0.00-0.30); Basophils Percent Auto 0.3 % (0.0-3.0); Eosinophils Absolute Auto 0.18 K/uL (0.00-0.50); Eosinophils Percent Auto 1.8 % (0.0-7.0); Hematocrit 43.2 % (33.0-51.0); Hemoglobin* 15.1 gm/dL (12.0-16.0); Immature Granulocytes Abs Auto 0.01 K/uL (0.00-0.30); Immature Granulocytes Pct Auto 0.1 %; Lymphocytes Absolute Auto 2.07 K/uL (0.90-2.90); Lymphocytes Percent Auto 20.5 % (20-44); Mean Corpuscular HGB Conc 35 gm/dL (32-36); Mean Corpuscular Hemoglobin 30 pg (26-34); Mean Corpuscular Volume 86 fL (80-100); Monocytes Percent Auto 6.3 % (0.0-11.0); Neutrophils Absolute Auto 7.16 K/uL (1.7-7.0); Platelet Count* 255 K/uL (140-440); RDW Coefficient of Variation % 12.7 % (11.5-15.5); Red Blood Count 5.05 m/uL (4.00-5.20); White Blood Count* 10.08 K/uL (4.50-11.00)
[2023-01-27 08:00] LABS: Slide Review Reflex No
[2023-01-27] MEDS: ONDANSETRON 2 MG/ML inj 4 MG IVP (08:11)
[2023-01-27] MEDS: ACETAMINOPHEN 500 MG TABLET 1000 MG PO (08:11)
[2023-01-27 08:14] LABS: Chloride* 106 mmol/L (96-114); Sodium* 139 mmol/L (135-149)
[2023-01-27 08:15] LABS: Potassium* 3.3 mmol/L (3.6-5.1)
[2023-01-27 08:17] LABS: Blood Urea Nitrogen* 4 mg/dL (5-24); Carbon Dioxide* 24 mmol/L (20-32); Creatinine* 0.5 mg/dL (0.5-1.5); Est. Creatinine Clearance* 139.49; Estimated Glomerular Filt Rate 128 ml/min
[2023-01-27 08:18] LABS: Calcium* 8.4 mg/dL (8.4-10.6); Glucose* 126 mg/dL (60-115)
--- NOTE | 2023-01-27 09:05 | ED.NURSE ---
stroke/neuro paged @[phone].
[2023-01-27 09:35] VITALS: BP 138/74; PULSE 70; RESP 16; TEMP 36; O2SAT 98
== END 2023-01-27 09:35 | disposition home or self-care (01) ==
PROVIDERS: Family Medicine; Emergency Provider Family Medicine; PCP Internal Medicine
DX: R20.0 Anesthesia of skin (principal)
CPT/HCPCS: 36415; 70450; 70496; 70498; 80048; 84443; 85025; 96374; 99284; A9270; J2405; Q9967

== ENCOUNTER 2023-05-09 15:50 | Outpatient (CLI) | payer MEDICAID, SELFPAY | END 2023-05-09 15:51 | disposition home or self-care (01) | PROVIDERS: PCP Internal Medicine; Visit Provider Internal Medicine | DX: N85.02 Endometrial intraepithelial neoplasia [EIN] (principal) | CPT/HCPCS: 80048; 85610 ==

== ENCOUNTER 2024-02-21 07:29 | Outpatient (CLI) | payer OTHER, MEDICAID, SELFPAY ==
--- OUTSIDE RECORDS SUMMARY | 2024-02-21 07:31 | XMS_ITS | Continuity of Care Document ---
Author Organization [facility] Address [address] [address] [place] [address] Phone Care Team Providers Care Weight Reduction Specialist Name Role Phone Finn DIAMOND, Alejo Unavailable Unavailable Medications Medication Instructions Dosage Effective Dates (start - stop) Status Comments tetracycline 500 mg capsule take 1 capsule by oral route 4 times every day 500 MG - Active Pepto-Bismol 262 mg tablet take 1 tablet by oral route 4 times every day 1 tablet - Active metronidazole 250 mg tablet take 1 tablet by oral route 4 times every day 250 MG - Active furosemide 20 mg tablet take 1 tablet by oral route every day 20 MG - Active Provera 10 mg tablet take 1 tablet by or al route every day 10 MG - Active Topamax 50 mg tablet take 1 tablet by or al route 2 times every day 50 MG - Active omeprazole 40 mg capsule,delayed release take 1 capsule by oral route every morning on empty stomach, 30 minutes before your first meal of the day - Active Procedures Procedure Date Colonoscopy Flex; W/bx 1/mx Ugi Endo; W/bx 1/mx Level Iv-surg Path Gross/micro 24 Offic/outpt E&m New Mod-hi Routine Serum Collection Advance Directives Directive Yes / No Effective Date File Name No Information Encounters Encounter Description Practice Location Reason(s) For Visit Diagnoses Date Provider Providers Copied on Encounter [facility], [address] [address], [place], [id number], [place] tel:[phone] [facility] No Information 4 Finn Dhillon. [address], [place], [place], [id number] , [place]. tel: [phone] [facility], [address] [address], [place], [id number], [place] tel:[phone] [facility] H. pylori infection 4 Jamie Carrero. [address], [place], [place], [id number] , [place]. tel: [phone] [facility], [address] [address], [place], [id number], [place] tel:[phone] [facility] No Information 4 Jamie Carrero. [address], [place], [place], [id number] , [place]. tel: [phone] [facility], [address] [address], [place], [id number], [place] tel:[phone] [facility] GI Symptoms or Concerns (chief complaint) Gastritis determined by endoscopyDiverticul osis of colon without diverticulitisAlter ed bowel habitsOther gastritis without bleedingHelicobacte r pylori as the cause of diseases classd elswhrLymphocytosis (symptomatic) 4 Jamie Carrero. [address] [facility], [place], [place], [id number] , [place]. tel: [phone] Referring Provider: Referral Self, USE FOR SELF REFERRALS. [facility], [address] [address], [place], [place], [id number], [place] tel:[phone] [facility] No Information 4 Boogie Hernandez. [address], [place], [place], [id number] , [place]. tel: [phone] Offic/outpt E&m New Mod-hi [facility], [address] [address], [place], [id number], [place] tel:[phone] [facility] GI Symptoms or Concerns (chief complaint) Epigastric abdominal painNauseaRectal bleeding 4 Finn Dhillon. [address] [facility], [facility] [address], [place], [id number] , [place]. [phone] Referring Provider: Junie Barnes MD R, [address] [facility] [address], [place], [address]. tel:[phone] [facility], [address] [address], [place], [id number], [place] tel:[phone] [facility] No Information 4 Boogie Hernandez. [address] [facility] [address], [facility] [address], [place], [id number] , [place]. tel: [phone] Family History Family Member Type Diagnosis Age At Onset No Information Immunizations Vaccine Date Status Comments Influenza administered Note: [facility] bi-d irectional interface ; Source: Other Registry SARS-COV-2 (COVID-19) vaccin e, mRNA, spike protein, LNP, preservative free, 30 mcg/0.3mL dose administered Note: [facility] bi-direct ional interface ; Source: Other Registry SARS-COV-2 (COVID-19) vaccin e, mRNA, spike protein, LNP, preservative free, 30 mcg/0.3mL dose administered Note: [facility] bi-direct ional interface ; Source: Other Registry SARS-COV-2 (COVID-19) vaccin e, mRNA, spike protein, LNP, preservative free, 30 mcg/0.3mL dose administered Note: [facility] bi-direct ional interface ; Source: Other Registry Afluria Qd administered Note: [facility] bi-directional interface ; Source: Other Registry Influenza, split virus, trivalent, injectable, preservative free administered Note: [facility] bi-direct ional interface ; Source: Other Registry Influenza, seasonal, injecta ble, preservative free administered Note: [facility] bi-direct ional interface ; Source: Other Registry tetanus toxoid, reduced diphtheria toxoid, and acellular pertussis vaccine, adsorbed administered Note: [facility] b i-directional interface ; Source: Other Registry Energix Pediatric administered Note: [facility] bi-directional interface ; Source: Other Registry tetanus toxoid, reduced diphtheria toxoid, and acellular pertussis vaccine, adsorbed administered Note: [facility] b i-directional interface ; Source: Other Registry Havrix administered Note: [facility] bi-d irectional interface ; Source: Other Registry influenza virus vaccine, unspecified formulation administered Note: [facility] bi-di rectional interface ; Source: Other Registry human papilloma virus vaccin e, quadrivalent administered Note: [facility] bi-direct ional interface ; Source: Other Registry Havrix pediatric administered Note: [facility] bi-directional interface ; Source: Other Registry human papilloma virus vaccin e, quadrivalent administered Note: [facility] bi-direct ional interface ; Source: Other Registry human papilloma virus vaccin e, quadrivalent administered Note: [facility] bi-direct ional interface ; Source: Other Registry Havrix pediatric administered Note: [facility] bi-directional interface ; Source: Other Registry hepatitis B vaccine, unspeci fied formulation administered Note: [facility] bi-direct ional interface ; Source: Other Registry hepatitis B vaccine, unspeci fied formulation administered Note: [facility] bi-direct ional interface ; Source: Other Registry hepatitis B vaccine, unspeci fied formulation administered Note: [facility] bi-direct ional interface ; Source: Other Registry diphtheria, tetanus toxoids and acellular pertussis vaccine administered Note: [facility] b i-directional interface ; Source: Other Registry poliovirus vaccine, inactivated administe red Note: [facility] bi- directional interface ; Source: Other Registry measles, mumps and rubella v irus vaccine administered Note: [facility] bi-direct ional interface ; Source: Other Registry diphtheria, tetanus toxoids and acellular pertussis vaccine administered Note: [facility] b i-directional interface ; Source: Other Registry poliovirus vaccine, inactivated administe red Note: [facility] bi- directional interface ; Source: Other Registry Haemophilus influenzae type b vaccine, conjugate unspecified formulation administered Note: [facility] bi-direct ional interface ; Source: Other Registry measles, mumps and rubella v irus vaccine administered Note: [facility] bi-direct ional interface ; Source: Other Registry Haemophilus influenzae type b vaccine, conjugate unspecified formulation administered Note: [facility] bi-direct ional interface ; Source: Other Registry poliovirus vaccine, inactivated administe red Note: [facility] bi- directional interface ; Source: Other Registry diphtheria, tetanus toxoids and acellular pertussis vaccine administered Note: [facility] b i-directional interface ; Source: Other Registry poliovirus vaccine, inactivated administe red Note: [facility] bi- directional interface ; Source: Other Registry Haemophilus influenzae type b vaccine, conjugate unspecified formulation administered Note: [facility] bi-direct ional interface ; Source: Other Registry diphtheria, tetanus toxoids and acellular pertussis vaccine administered Note: [facility] b i-directional interface ; Source: Other Registry poliovirus vaccine, inactivated administe red Note: [facility] bi- directional interface ; Source: Other Registry Haemophilus influenzae type b vaccine, conjugate unspecified formulation administered Note: [facility] bi-direct ional interface ; Source: Other Registry diphtheria, tetanus toxoids and acellular pertussis vaccine administered Note: [facility] b i-directional interface ; Source: Other Registry Payers Payer name Insurance type Covered alliance party ID Rosamaria yanezvalentina(s) [employer] CI [id number] [place] [employer] CI [id number] Social History Type Description Quantity Date Captured Comments Sex Female Smoking Status No Information Chief Complaint And Reason For Visit No Information Reason For Referral Reason For Referral No Information Plan Of Treatment Date Type Action Status Referral Ordered: H. pylori Breath Test Appointment date/timeframe: 05/03/2024 ordered Referral Ordered: EGD Appointment date/timeframe: 01/23/2024 ordered Referral Ordered: Colonoscopy Appointment date/timeframe: 01/23/2024 ordered Appointment Myah Nick Appointment Myah Nick History Of Present Illness Encounter Date Complaint History Of Prese nt Illness GI Symptoms or Concerns GI Symptoms or Concerns 33-year- old female patient who presents with her for evaluation of epigastric abdominal pain. She reports that she has had this pain since July of this year. At that time, she had the flu, and developed significant symptoms of epigastric discomfort, black tarry stools and diarrhea. She had evaluation in the urgent care and had positive fecal occult blood test. Since that time, she reports that black tarry stools have resolved, but other symptoms happen couple times a week. She describes epigastric abdominal pain that happens only after eating or even drinking water and response to placing pressure over the epigastric area for 5-10 minutes. This is associated with nausea without vomiting. Other days of the week she describes no symptoms at all. She has not been able to find correlation with any specific food or trigger, but she does think that stress and anxiety contribute to significant symptoms. She reported significant period of stress in July with dealing with custody for child that they had, who was taken by her mom just last week. They had the child from the age of 4, and recently she turn 7.Patient reports that she had similar symptoms in the past before removing her gallbladder in 2016.Report that her bowel movements varies. In the past she dealt with significant constipation that became slightly better with Topamax. Reports 1 bowel movement a day, type 4 [place] stool chart, but reports feeling of incomplete evacuation all the time.She follows with gynecology for malignant neoplasm of the endometrium ( I do not have records ). she reports that her resource management specialist suggested to be seen by Gastroenterology before her next checkup.Past medical history Malignant neoplasm of the endo monitored by Gynecology. Past surgical history: Laparoscopic evaluation for abdominal pain a year ago for possible endometriosis. Cholecystectomy in 2016. Family history: No colorectal cancer. No IBD. 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 No alcohol misuse and no recreational drug use. Functional Status Date Functional Assessmen t No Information Instructions Date Instruction Additional Infor jaimie Diverticulosis/Diverticulitis Re lated to Diverticulosis of colon without diverticulitis High Fiber Diet Related to Diver ticulosis of colon without diverticulitis Obtain blood testing today including LFTs, lipase, celiac serology, TSH, free T4 and T3. Attempt omeprazole 40 milligram daily for presumed gastritis and possible GERD. Counseled about correct timing of taking this medication on empty stomach in the morning half an hour before morning meal. Counseled about avoiding NSAIDs. Referral for upper endoscopy with gastric and duodenal biopsies, and colonoscopy with TI evaluation. Follow-up in 2 months. We will consider treatment for visceral hypersensitivity with a tricyclic antidepressant. I spent a total of 65 minutes during this clinical encounter, mostly with [id number] encounter, care coordination, orders, and dictation. Related to Epigastric abdominal pain Assessments Type Assessment Date No Information Patient Care Teams Name Effective Dates (start - stop) Status Members No Information
--- OUTSIDE RECORDS SUMMARY | 2024-02-21 07:31 | XMS_ITS | Referral Summary ---
Author Organization [place] Address [address] [facility] [place] [address] Care Team Providers Care Combat Information Center Officer Name Role Phone Clinic, [facility] Primary Care Provider Encounters Date Type Department Care Team Description 02/05/2024 7:25 AM CDT Anesthesia Event [facility] [address] [place] [phone] Grover Ornelas MD 02/05/2024 Travel 02/05/2024 6:28 AM CDT - 02/05/2024 11:59 PM CDT Hospital Encounter [facility] [address] [place] [phone] Junie Barnes MD EIN (endometrial intraepithelial neoplasia) Discharge Disposition: Home or Self Care 02/05/2024 7:30 AM CDT - 02/05/2024 9:00 AM CDT Surgery [facility] [address] [place] [phone] Junie Barnes MD Dilation and curettage, pelvic ultrasound under anesthesia 02/05/2024 5:11 AM CDT - 02/05/2024 10:35 AM CDT Hospital Encounter [facility] PreOP/Phase II [address] [place] [phone] Junie Barnes MD EIN (endometrial intraepithelial neoplasia) (Primary Dx) Discharge Disposition: Home or Self Care 12/19/2023 Medical Correspondence [facility] Info Mgmt [facility] [address] [place], [place] [address] Scan, Non-Provider from Last 3 Months Allergies Active Allergy Reactions Criticality Noted Date Comments Adhesive Tape 02/05/2024 Burned skin Avocado Itching 11/11/2022 Banana Itching 11/11/2022 Medications Medication Sig Dispensed Refills Start Date End Date Status Fexofenadine HCl (YOHANA PO) Take 1 tablet by mouth daily Active furosemide (LASIX) 20 MG tablet Take 20 mg by mouth daily Active medroxyPROGESTERone (PROVERA) 10 MG tablet Take 20 mg by mouth daily Active topiramate (TOPAMAX) 50 MG tablet Take 50 mg by mouth 2 times daily Active tetracycline (ACHROMYCIN/SUMYCIN) 500 MG capsule Take 500 mg by mouth 4 times daily Active bismuth subsalicylate (PEPTO BISMOL) 262 MG/15ML suspension Take 15 mLs by mouth every 6 hours as needed for indigestion Active medroxyPROGESTERone (PROVERA) 10 MG tabletIndications:EI N (endometrial intraepithelial neoplasia) Take 2 tablets (20 mg) by mouth daily 60 tablet 1 02/05/2024 Active loratadine (CLARITIN) 10 MG tablet Take 10 mg by mouth daily 4 Discontinu ed(Med Rec(No AVS / No eCancel)) Active Problems Problem Noted Date Diagnosed Date EIN (endometrial intraepithelial neoplasia) 11/2023 Perineal abscess 04/18/2013 Resolved Problems Problem Noted Date Diagnosed Date Resolved Date Endometrial cancer 10/23/2023 4 Social History Tobacco Use Types Packs/Day Years Used Date Smoking Tobacco: Never Smokeless Tobacco: Never Tobacco Cessation:Counseling Given: Not Answered Alcohol Use Standard Drinks/Week Comments Yes 0 (1 standard drink = 0.6 oz pur e alcohol) social drinker x3/week Adolescent Education Answer Date Record ed Getting School Help Needed Not on file 09/25 Sex and Gender Information Value Date Recorded Sex Assigned at Not on file Gender Identity Not on file Sexual Orientation Not on file Last Filed Vital Signs Vital Sign Reading Time Taken Comments Blood Pressure 114/64 02/05/2024 9:56 AM CDT Pulse 76 02/05/2024 9:56 AM CDT Temperature 36.3 ??C (97.4 ??F) 02/05/2024 8:22 AM CD T Respiratory Rate 12 02/05/2024 9:56 AM CDT Oxygen Saturation 97% 02/05/2024 9:56 AM CDT Inhaled Oxygen Concentration - - Weight 104.6 kg (230 lb 9.6 oz) 02/05/2024 5:45 AM CDT Height 162.6 cm (5' 4) 02/05/2024 5:45 AM CDT Body Mass Index 39.58 02/05/2024 5:45 AM CDT Plan of Treatment Not on file Procedures Procedure Name Priority Date/Time Associated Diagnosis Comments US PELVIC TRANSABDOMINAL AND TRANSVAGINAL Routine 02/05/2024 8:42 AM CDT EIN (endometrial intraepithelial neoplasia) SURGICAL PATHOLOGY EXAM Routine 02/05/2024 8:04 AM CDT DILATION AND CURETTAGE, UTERUS, WITH ULTRASOUND GUIDANCE 02/05/2024 7:28 AM CDT Endometrial intraepithelial neoplasia (EIN) Special Needs *htn-anesthesia alert: motion sickness & ponvOzempic prescribed 2022, did not start using this medicationReq 30 min HCG QUALITATIVE URINE STAT 02/05/2024 5:46 AM CDT from Last 3 Months Results * US Pelvic Complete with Transvaginal (02/05/2024 8:42 AM CDT) Anatomical Region Laterality Modality Abdomen/Pelvis Ultrasound Impressions 02/05/2024 10:50 AM CDT IMPRESSION: 1. ??Smooth endometrium measuring 2 mm in thickness. 2. ??Right ovarian cyst measuring 3.5 cm, not requiring specific follow-up. MICHELLE HO MD Narrative 02/05/2024 10:50 AM CDT US PELVIC TRANSABDOMINAL AND TRANSVAGINAL 02/05/2024 8:42 AM CLINICAL HISTORY: EIN (endometrial intraepithelial neoplasia) TECHNIQUE: Transabdominal scans were performed. Endovaginal ultrasound was performed to better visualize the adnexa. COMPARISON: Intraoperative ultrasound images 10/23/2023. CT abdomen and pelvis 10/19/2015. FINDINGS: UTERUS: 8.0 x 4.8 x 4.3 cm. Normal in size and position with no masses. ENDOMETRIUM: 2 mm. Endometrium appears smooth. RIGHT OVARY: 4.4 x 3.2 x 3.6 cm. Right ovarian cyst measuring 3.5 cm with a cumulus oophorus. LEFT OVARY: 2.5 x 2.1 x 1.9 cm. Normal. No significant free fluid. Procedure Note Michelle Ho MD - 02/05/2024 US PELVIC TRANSABDOMINAL AND TRANSVAGINAL 02/05/2024 8:42 AM CLINICAL HISTORY: EIN (endometrial intraepithelial neoplasia) TECHNIQUE: Transabdominal scans were performed. Endovaginal ultrasound was performed to better visualize the adnexa. COMPARISON: Intraoperative ultrasound images 10/23/2023. CT abdomen and pelvis 10/19/2015. FINDINGS: UTERUS: 8.0 x 4.8 x 4.3 cm. Normal in size and position with no masses. ENDOMETRIUM: 2 mm. Endometrium appears smooth. RIGHT OVARY: 4.4 x 3.2 x 3.6 cm. Right ovarian cyst measuring 3.5 cm with a cumulus oophorus. LEFT OVARY: 2.5 x 2.1 x 1.9 cm. Normal. No significant free fluid. IMPRESSION: 1. Smooth endometrium measuring 2 mm in thickness. 2. Right ovarian cyst measuring 3.5 cm, not requiring specific follow-up. MICHELLE HO MD Junie Barnes MD [facility] US ORDERABLES * Surgical Pathology Exam (02/05/2024 8:04 AM CDT) Case Report Surgical Pathology Report ? Case: [id number] ? Authorizing Provider: ??Junie Barnes MD ? Collected: ? 02/05/2024 08:04 AM ? Ordering Location: ? [facility] ?Received: ?02/05/2024 08:36 AM ? [facility] ? Pathologist: ? Lila Jacinto MD ? Specimen: ?Endometrium, Endometrial curettings ? 02/06/2024 2:48 PM CDT LABORATORY Final Diagnosis A. Endometrium, curettage: -Fragments of inactive endometrium. -No residual atypical hyperplasia identified. -Superficial strips of benign squamous and endocervical epithelium 02/06/2024 2:48 PM CDT LABORATORY Clinical Information Endometrial intraepithelial neoplasia (EIN). 02/06/2024 2:48 PM CDT LABORATORY Gross Description A(1). Endometrium, Endometrial curettings: The specimen is received in formalin, labeled with the patient's name, medical record number and other identifying information designated endometrial curettings. It consists of 2 Telfa pads containing a 2.5 x 2.2 x 0.3 cm aggregate of red-brown clotted blood. The specimen is filtered and submitted entirely in three cassettes. (CHIARA Hernandez (ASCP) 02/05/2024 9:09 AM 02/06/2024 2:48 PM CDT LABORATORY Microscopic Description Microscopic examination was performed. 02/06/2024 2:48 PM CDT LABORATORY Performing Labs The technical component of this testing was completed at [facility]. Stain controls for all stains resulted within this report have been reviewed and show appropriate reactivity. 02/06/2024 2:48 PM CDT LABORATORY Case Images 02/06/2024 2:48 PM CDT LABORATORY Curettings ENDOMETRIAL STRUCTURE / Unknown 02/05/2024 8:04 AM CDT 02/05/2024 8:36 AM CDT Junie DU - BEAKER AP LABORATORY [facility] [address] Lab (1st floor, no room number) [place] [address], [facility] [address] 1[address] floor, [address] [place] [address], [facility] [phone] * HCG qualitative urine (02/05/2024 5:46 AM CDT) hCG Urine Qualitative Negative Negative MICHAEL 02/05/2024 5:56 AM CDT LABORATORY Comment:This test is for scr eening purposes. Results should be interpreted along with the clinical picture. Confirmation testing is available if warranted by ordering [id number], HCG Quantitative . Urine MID-STREAM URINE SPECIMEN / Unknown Non-blood Collection / Unknown 02/05/2024 5:46 AM CDT 02/05/2024 5:50 AM CDT Philly Stratton PA-C LAB - URINE O RDERABLES LABORATORY [facility] [address] 1[address] floor, [address] [place] [address], [facility] [phone] from Last 3 Months Care Teams Combat Information Center Officer Relationship Specialty Start Date End Date [facility], [facility] [address] [place] [address] PCP - General 10/19/15
--- OUTSIDE RECORDS SUMMARY | 2024-02-21 07:31 | XMS_ITS | Encounter Summary ---
Author Organization [facility] Address [address] [facility] [place] [address] Care Team Providers Care Cultural Historian Name Role Phone [facility] Primary Care Provider Encounter Details Date Type Department Care Team (Late st Contact Info) Description 12/19/2023 Medical Correspondence [facility] Info Mgmt [facility] [address] [place] [address] Scan, Non-Provider Social History Tobacco Use Types Packs/Day Years Used Date Smoking Tobacco: Former Cigarettes Smokeless Tobacco: Never Alcohol Use Standard Drinks/Week Comments Yes 0 (1 standard drink = 0.6 oz pur e alcohol) social drinker x3/week Adolescent Education Answer Date Record ed Getting School Help Needed Not on file 09/25 Sex and Gender Information Value Date Recorded Sex Assigned at Not on file Gender Identity Not on file Sexual Orientation Not on file documented as of this encounter Plan of Treatment Not on file documented as of this encounter Visit Diagnoses Not on filedocumented in this encounter Care Teams Cultural Historian Relationship Specialty Start Date End Date [facility] [address] [place] [address] PCP - General 10/19/15 documented as of this encounter
--- OUTSIDE RECORDS SUMMARY | 2024-02-21 07:31 | XMS_ITS | Clinical Summary ---
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 Perineal abscess 04/18/2013 Resolved Problems Problem Noted Date Diagnosed Date Resolved Date Endometrial cancer 10/23/2023 Encounters Date Type Department Care Team Description 02/05/2024 7:30 AM CDT - 02/05/2024 9:00 AM CDT Surgery [facility] [address] [place] [address] Junie Barnes MD Dilation and curettage, pelvic ultrasound under anesthesia 02/05/2024 7:25 AM CDT Anesthesia Event [facility] [address] [place] [address] Grover Ornelas MD 02/05/2024 6:28 AM CDT - 02/05/2024 11:59 PM CDT Hospital Encounter [facility] [address] [place] [address] Junie Barnes MD EIN (endometrial intraepithelial neoplasia) Discharge Disposition: Home or Self Care 02/05/2024 5:11 AM CDT - 02/05/2024 10:35 AM CDT Hospital Encounter [facility]/Phase II [address] [place] [address] Junie Barnes MD EIN (endometrial intraepithelial neoplasia) (Primary Dx) Discharge Disposition: Home or Self Care 02/05/2024 Travel 12/19/2023 Medical Correspondence [facility] [address] [place] [address] Scan, Non-Provider from Last 3 Months Family History Medical History Relation Comments Cancer Maternal Grandfather lung Cancer Maternal Grandmother stomache Diabetes Mother Thyroid Disease Mother Relation Status Comments Maternal Grandfather Maternal Grandmother Mother Social History Tobacco Use Types Packs/Day Years [...] 02/05/2024 5:45 AM CDT Plan of Treatment Health Maintenance Due Date Last Done Comments ADVANCE CARE PLANNING 1990 ANNUAL REVIEW OF HM ORDERS 1990 YEARLY PREVENTIVE VISIT 1990 HIV SCREENING 2005 HEPATITIS C SCREENING 2008 PHQ-2 (once per calendar year) 2023 COVID-19 Vaccine ( season) 2024 06/24/2021, 07/21/2020, 06/30/2020 INFLUENZA VACCINE (#1) 2024 , 03/21/2020, 04/18/2017, Additional history exists PAP 10/25/2025 10/25/2022 DTAP/TDAP/TD IMMUNIZATION (8 - Td or Tdap) 05/09/2026 05/09/2016, 12/02/2013, 10/22/2002, Additional history exists HPV IMMUNIZATION Completed 12/17/2007, 06/2006, 01/03/2007 HEPATITIS B IMMUNIZATION Completed 014, 12/09/1997, 07/14/1997, Additional history exists MENINGITIS IMMUNIZATION Aged Out No l onger eligible based on patient's age to complete this topic Pneumococcal Vaccine: Pediatrics (0 to 5 Years) and At-Risk Patients (6 to 64 Years) Aged Out No longer eligible based on patient's age to complete this topic RSV MONOCLONAL ANTIBODY Aged Out No l onger eligible based on patient's age to complete this topic Procedures Procedure Name Priority Date/Time Associated Diagnosis [...] follow-up. MICHELLE HO MD Junie Barnes MD IMG US ORDERABLES * Surgical Pathology Exam (02/05/2024 8:04 AM CDT) Case Report Surgical Pathology Report ? Case: [id number] ? Authorizing Provider: ??Junie Barnes MD ? Collected: ? 02/05/2024 08:04 AM ? Ordering Location: ? [facility] ?Received: ?02/05/2024 08:36 AM ? [place] [facility] ? Pathologist: ? Lila Jacinto MD ? Specimen: ?Endometrium, Endometrial curettings ? 02/06/2024 2:48 PM [facility] Final Diagnosis A. Endometrium, curettage: -Fragments of inactive endometrium. -No residual atypical hyperplasia identified. -Superficial strips of benign squamous and endocervical epithelium 02/06/2024 2:48 PM [facility] Clinical Information Endometrial intraepithelial neoplasia (EIN). 02/06/2024 2:48 PM T LABORATORY Gross Description A(1). Endometrium, Endometrial curettings: [...] (ASCP) 02/05/2024 9:09 AM 02/06/2024 2:48 PM [facility] Microscopic Description Microscopic examination was performed. 02/06/2024 2:48 PM [facility] Performing Labs The technical component of this testing was completed at [facility]. Stain controls for all stains resulted within this report have been reviewed and show appropriate reactivity. 02/06/2024 2:48 PM CDT LABORATORY Case Images 02/06/2024 2:48 PM CDT LABORATORY Curettings ENDOMETRIAL STRUCTURE / Unknown 02/05/2024 8:04 AM CDT 02/05/2024 8:36 AM CDT [facility] [address] Lab (1st floor, no room number) [place] [address], [facility] [address] 1[address] floor, [address] [place] [address], [facility] [phone] * HCG qualitative urine (02/05/2024 5:46 AM CDT) hCG Urine Qualitative Negative Negative MICHAEL 02/05/2024 5:56 AM CDT LABORATORY Comment:This test is for scr eening purposes. Results should be interpreted along with the clinical picture. Confirmation testing is available if warranted by ordering [id number], HCG Quantitative . Urine MID-STREAM URINE SPECIMEN / Unknown Non-blood Collection / Unknown 02/05/2024 5:46 AM CDT 02/05/2024 5:50 AM CDT Philly Stratton PA-C LAB - URINE O RDERABLES LABORATORY [facility] [address] 1[address] floor, [address] [place] [address], [facility] [phone] from Last 3 Months Care Teams Whizzer Hand Relationship Specialty Start Date End Date [facility], [address] [address] PCP - General 10/19/15
--- OUTSIDE RECORDS SUMMARY | 2024-02-21 07:31 | XMS_ITS | Clinical Summary ---
Author Organization [employer] [facility] Address [place], [place] [address] Care Team Providers Care Automatic Driller And Reamer Name Role Phone Pcp, No Unavailable Unavailable Adalberto Todd MD Primary Care Provider Allergies Active Allergy Reactions Criticality Noted Date Comments Avocado Itching 11/11/2022 Banana Itching 11/11/2022 Medications Medication Sig Dispensed Refills Start Date End Date Status topiramate (TOPAMAX) 50 mg tablet Take by mouth two times daily. 04/05/2023 Active medroxyPROGESTERone (Provera) 10 mg tablet Take 2 Tablets by mouth once daily. 05/31/2023 Active furosemide (LASIX) 20 mg tablet Take 20 mg by mouth every morning. Active oxyCODONE (ROXICODONE) 5 mg immediate release tabletIndications:Oth er specified abnormal uterine and vaginal bleeding Take 1-2 Tablets (5-10 mg) by mouth every 4 hours if needed for Pain. 5 Tablet 07/11/2023 Active Active Problems Problem Noted Date Diagnosed Date Borderline personality disorder 07/20/2017 Chronic low back pain 07/20/2017 Moderate episode of recurrent major depressive d isorder 07/20/2017 Obesity with body mass index 30 or greater 07/20 Other specified abnormal uterine and vaginal ble eding 07/20/2017 Abscess of perineum 04/18/2013 Immunizations Name Administration Dates Next Due COVID-19 vaccine ([employer] 30mcg/0.3mL) KAVITA GILBERT 07/21/2020,06/30/2020 DTaP 11/20/1995, 3,04/16/1991,1990,1990 Hepatitis A (Adult) 12/02/2013 Hepatitis A (Peds) 12/17/2007,01/03/2007 Hepatitis B (Peds) 12/02/2013 Hepatitis B, Unspecified 12/09/1997,07/14/1997,0 03/04/1997 Hib Conjugate, Unspecified 08/21/1992,,02/04/1991,1990 Human Papilloma Virus Vaccine 12/17/2007, 007,01/03/2007 Inactivated Polio Vaccine 11/20/1995,10/1992,04/16/1991,1990,1990 Influenza Virus, Unspecified 03/27/2008 Influenza, IIV3 (Age 6-35 mos) 04/18/2017 Influenza, IIV4 03/21/2020 MMR 11/20/1995,12/25/1991 Td (Age >=7 Years) 10/22/2002 Tdap 05/09/2016,12/02/2013 Family History Medical History Relation Name Comments Other Father migraines Cancer Maternal Grandfather lung Cancer Maternal Grandmother stomach Diabetes Mother Thyroid Disease Mother Genetic Other nil Relation Name Status Comments Father Maternal Grandfather Maternal Grandmother Mother Other Social History Tobacco Use Types Packs/Day Years Used Date Smoking Tobacco: Passive Smo ke Exposure - Never Smoker Cigarettes Smokeless Tobacco: Never Tobacco Cessation:Counseling Given: Yes Comments:1 a month if stressed Alcohol Use Standard Drinks/Week Comments No 0 (1 standard drink = 0.6 oz pur e alcohol) Social Connections Answer Date Recorded Frequency of Communication with Friends and Fami ly Not on file 08/04/2023 Sex and Gender Information Value Date Recorded Sex Assigned at Not on file Gender Identity Not on file Sexual Orientation Not on file Obstetrics History Last Filed Vital Signs Vital Sign Reading Time Taken Comments Blood Pressure 120/71 07/11/2023 9:44 AM SUBCONTRACTS MANAGER Pulse 74 07/11/2023 9:44 AM SUBCONTRACTS MANAGER Temperature 36.4 ??C (97.5 ??F) 07/11/2023 9:44 AM CS T Respiratory Rate 16 07/11/2023 9:44 AM SUBCONTRACTS MANAGER Oxygen Saturation 99% 07/11/2023 9:44 AM SUBCONTRACTS MANAGER Inhaled Oxygen Concentration - - Weight 97.7 kg (215 lb 6.2 oz) 07/11/2023 5:57 A M SUBCONTRACTS MANAGER Height 162.6 cm (5' 4) 07/11/2023 5:57 AM SUBCONTRACTS MANAGER Body Mass Index 36.97 07/11/2023 5:57 AM SUBCONTRACTS MANAGER Plan of Treatment Health Maintenance Due Date Last Done Comments HIV for age 15-65 2005 Hepatitis C screening for age 18-79 2008 Depression screening for age 12+ 05/23/2017 05/23/2016, 12/22/2015 BMI (ht and wt on same day) for age 18+ 08/29/2017 08/29/2016, 12/22/2015, 09/10/2015 COVID-19 vaccine series ( season) 2024 07/21/2020, 06/30/2020 Influenza for age 9-49 02/18/2024 03/21/2020, 2007 Pap test for age 21-65 10/25/2025 , 06/04/2019, 01/04/2018, Additional history exists Tetanus booster 05/09/2026 05/09/2016, 11/17, 10/22/2002 Tdap Completed 05/09/2016, 12/02/2013 Pneumococcal series for age 6-64 Aged Out No longer eligible based on patient's age to complete this topic Medical Devices Implanted Type Area Linen Clerk Device Identifier Shelf Expiration Date Model / Serial / Lot Sys Intrauterine Mirena - [id number] Implanted:Qty: 1 on 11/15/2022 by Hortencia Greer MD at [facility] N/A: [employer] 11/16/2024 [id number] / [id number] / [id number] Procedures Procedure Name Priority Date/Time Associated Diagnosis Comments HPV THIN PREP Routine 10/25/2022 8:55 AM CDT from Last 3 Months or Most Recently Relevant to Health Maintenance Results * HPV HIGH RISK (10/25/2022 8:55 AM CDT) TYPE 16 Negative Negative 11/02/2022 9:38 AM CDT [facility] TYPE 18 Negative Negative 11/02/2022 9:38 AM CDT [facility] OTHER HIGH RISK TYPES Negative Negative 11/02/2022 9:38 AM CDT [facility] TRA LABORATORY Other (Cervical) Client Collect / Unknown 10/25/2022 8:55 AM CDT 10/29/2022 11:39 AM CDT Narrative [facility] - 11/02/2022 9:38 AM CDT HPV types 16, 18, 31, 33, 35, 39, 45, 51, 52, 56, 58, 59, 66 and 68 DNA were undetectable or below the pre-set threshold. Methodology: Jer Julianne 4800 HPV Test September Uziel ALBARRAN [employer] [facility] [address] [place] [address], from Last 3 Months or Most Recently Relevant to Health Maintenance Advance Directives * Full Code (Latest Code Status on File) Date Activated Date Inactivated Comments 07/11/2023 5:53 AM 07/11/2023 12:05 PM Question Answer Comments Code Status Discussion: Unable to Assess Preferences, Provider to review later * Full Code Date Activated Date Inactivated Comments 12/16/2022 5:47 AM 12/16/2022 12:54 PM Question Answer Comments Code Status Discussion: Unable to Assess Preferences, Provider to review later Care Teams Automatic Driller And Reamer Relationship Specialty Start Date End Date Adalberto Todd MD [address] [place] [id number] PCP - General Internal Medicine 04/21/23 Pcp, No . 11/08/22
--- OUTSIDE RECORDS SUMMARY | 2024-02-21 07:31 | XMS_ITS | Data Portability ---
Author Organization [facility] Address [address] [place] [address] [place] [address] Assessment Encounter Date Assessment Date Assessment LastModified by Organization Details LastModified Time 11/04/2019 11/04/2019 Negative COVID-19 [email or web address] Not available 02/03/2020 17:04:46 Plan of Treatment Reminders Order Date Submit Date Provider Last Modified By Organization Details Last Modified Time Details Appointments None recorded. Lab None recorded. Referral None recorded. Procedures None recorded. Surgeries None recorded. Imaging None recorded. Medication Orders Medrol (Bayron) 4 mg tablets in a dose pack 2019 020 ATHENAFAX Not available 0 15:25:15 Patient TargetsNo targets recorded. Patient InstructionsNo instructions recorded. Reason for Referral None Reported. Medical Equipment None Reported. Medications Name Sig Start Date Stop Date Status Note LastModified by Organization Details LastModified Time Medrol (Bayron) 4 mg tablets in a dose pack Take 1 dose pk by oral route. 2019 active Not Available Not Available Not Avai lable ketorolac 10 mg tablet active Not Available Not Available No t Available Prozac 20 mg capsule take 1 capsule by oral route every day in the morning 2017 active Not Available Not Available Not Avai lable Provera 10 mg tablet take 1 tablet by oral route every day 2018 active Not Available Not Available Not Avai lable clindamycin 2 % vaginal cream active Not Available Not Available Not Available hydrocortiso ne 2.5 % topical ointment active Not Available Not Available Not Available Mononessa (28) 0.25 mg-35 mcg tablet take 1 tablet by oral route every day 10/23 completed Not Available Not Available Not Available Vitals None Recorded Social History None recorded. Functional Status None recorded. Mental Status None recorded. Family History Nothing Reported. Medical History No medical history recorded. Gynecological HistoryNo gynecological history recorded. Obstetrics History GPAL:G 0 P 0 0 0 0 Past Encounters Encounter ID Performer Location Encounter Start Date Encounter Closed Date Diagnosis/Indication Diagnosis SNOMED-CT Code Diagnosis ICD10 Code [id number] Deedee Garibay NP [facility] [address] [place] [address] 11/04/2019 14:20:25 11/04/2019 14:22:09 [id number] Deedee Garibay NP [facility] [address] [place] [address] 12/02/2019 14:09:45 12/02/2019 14:11:51 [id number] Kaushik Roger MD [facility] [address] [place] [address] 02/17/2020 14:54:24 02/17/2020 15:32:46 Allergic rhinitis caused by pollen 50712998 J30.1 Health Concerns Section Related Observation LastModified by Organization Detai ls LastModified Time None Recorded Concern Status LastModified by Organization Details LastModified Time None Recorded Advance Directives Directive None Recorded Payers Encounter Date Sequence Insurance Name Policy Number Policy Sorto Covered Member ID Sorto Member ID Guarantor Name 11/04/2019 SLIDING FEE SCHEDULE - DISCOUNT Herlen Sukh-Con de 12/02/2019 SLIDING FEE SCHEDULE - DISCOUNT Herlen Sukh-Con de 02/17/2020 SLIDING FEE SCHEDULE - DISCOUNT Herlen Sukh-Con de Notes Date Note Type Note Provider Name and Address Organization Details Recorded Time 02/17/2020 text/html HPI Notes: eyes swollen, sneezing, itchy mouth, can't function Kaushik Roger MD [address] [place], [address], [facility] - [facility] 02/17/2020 15:29:19 OBGyn Episode No OBEpisode recorded.
--- OUTSIDE RECORDS SUMMARY | 2024-02-21 07:31 | XMS_ITS | Encounter Summary ---
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] Procedures VT DILATION/CURETTAGE DIAG/THER NON OB VT US GUIDANCE, INTRAOPERATIVE Dilation and curettage, pelvic ultrasound under anesthesia Periop Services [address], [address] [place] [address] Referral ID Status Reason Start Date Expiration Date Visits Re quested Visits Authorized [id number] 1 1 Encounter Details Date Type Department Care Team (Late st Contact Info) Description 02/05/2024 7:25 AM CDT Anesthesia Event [facility] [address], [address] [place] [phone] Grover Ornelas MD [facility] [address] [place] [id number] Anesthesia Record Procedure Summary Procedure Name Responsible Anesthesiologist Anesthesia Start Time Anesthesia Stop Time Dilation and curettage, pelvic ultrasound under anesthesia (Vagina) Grover Ornelas MD 02/05/24 0725 02/05/24 0825 Events Date Time Event Comment 02/05/2024 0704 0725 An Start Anesthesia Star t is defined as when the anesthesia provider assumed care, began anesthesia prep, remained continuously present with the patient, and excludes all time for performing the pre-anesthesia evaluation. The Pre-Anesthesia Evaluation was completed before Anesthesia Start. 0728 An Start Data 0733 AN REASSESS I attest that I have identified and re-evaluated the patient immediately before the induction of anesthesia and I am satisfied that the anesthetic plan is suitable for the patient's condition and procedure. The first vital signs recorded are pre- induction. Isis Campbell APRN RUBBER STAMP ASSEMBLER 0736 Anesthesia Ready for Procedu re 0802 AN INCISION 0802 Quick Note Local injection 0819 an stop data 0825 An Stop Electronically signed by Isis Campbell APRN CRNA on February 05, 2024 8:25 AM Meds Name Total ceFAZolin Sodium (ANCEF) injection 2 g 2 g midazolam 1 mg/mL 2 mg fentaNYL 50 mcg/mL 100 mcg lidocaine 2% 60 mg propofol 10 mg/mL 50 mg propofol drip mcg/kg/min 488.48 mg phenylephrine (MARVIN-SYNEPHRINE) injection 50 mcg dexamethasone (DECADRON) 4 mg/mL 4 mg ondansetron 2 mg/mL 4 mg dexmedeTOMIDine (PRECEDEX) 4 mcg/mL in N aCl 25mL 8 mcg ketorolac 30 mg/mL 15 mg lactated ringers infusion 500 mL * Agents Name O2 N2O Air Exp Sevoflurane Exp Isoflurane Exp Desflurane O2 Delivery Device Ins Sevoflurane Ins Isoflurane Ins Desflurane O2 Auxiliary * Blood No blood administrations on file. Lines, Drains, and Airways Type Details Placement Removal Peripheral IV 02/05/24; 0557; 20 G ; Left; Wrist; Chlorhexidine; 1; Tolerated well 02/05/24 0557 by Debbie Kennedy RN 02/05/24 1027 by Monica Blount RN documented in this encounter Social History Tobacco Use Types Packs/Day Years Used Date Smoking Tobacco: Never Smokeless Tobacco: Never Alcohol Use Standard Drinks/Week [...] on file documented as of this encounter OR Notes * Anesthesia Postprocedure Evaluation - Grover Ornelas MD - 02/05/2024 3:31 PM CDT Patient: Myah Kolb Procedure: Procedure(s): Dilation and curettage, pelvic ultrasound under anesthesia Anesthesia Type: MAC Note: Postop Pain Control: Uneventful Sign Out: Well controlled pain PONV: Neuro/Psych: Uneventful Sign Out: Acceptable/Baseline neuro status Airway/Respiratory: Uneventful Sign Out: Acceptable/Baseline resp. status CV/Hemodynamics: Uneventful Sign Out: Acceptable CV status; No obvious hypovolemia; No obvious fluid overload Other NRE: DID A NON-ROUTINE EVENT OCCUR? Last vitals: Vitals Value Taken Time BP 114/72 02/05/24 0930 Temp 36.3 ??C (97.4 ??F) 02/05/24 0822 Pulse 65 02/05/24 0938 Resp 9 02/05/24 0938 SpO2 96 % 02/05/24 0939 Vitals shown include unfiled device data. Electronically Signed By: Grover Ornelas MD February 05, 2024 3:31 PM * Anesthesia Preprocedure Evaluation - Grover Ornelas MD - 02/05/2024 6:38 AM CDT Anesthesia Pre-Procedure Evaluation Patient: Myah Kolb : 1990 Procedure : Procedure(s): Dilation and curettage, pelvic ultrasound under anesthesia Past Medical History: Diagnosis Date Chronic low back pain Depressive disorder Dysmenorrhea Edema Endometrial hyperplasia with atypia Female infertility H. pylori infection Hypertension Irregular menstrual cycle Migraine Motion sickness Obesity Onychomycosis PCOS (polycystic ovarian syndrome) PONV (postoperative nausea and vomiting) Systolic murmur Viral gastroenteritis Past Surgical History: Procedure Laterality Date BUNIONECTOMY Left 2007 great toe CHOLECYSTECTOMY COLONOSCOPY DILATION AND CURETTAGE DILATION AND CURETTAGE, WITH ULTRASOUND GUIDANCE N/A 10/23/2023 Procedure: dilation and curettage , pelvic ultrasound under anesthesia, cervical biopsy; Surgeon: Junie Barnes MD; Location: OR GI SURGERY upper endoscopy Hand surgery third molar tooth extraction 2008 [facility] REPAIR OF WEB FINGER,COMPLEX Allergies Allergen Reactions Adhesive Tape Burned skin Avocado Itching Banana Itching Social History Tobacco Use Smoking status: Never Smokeless tobacco: Never Substance Use Topics Alcohol use: Yes Comment: social drinker x3/week Wt Readings from Last 1 Encounters: 02/05/24 104.6 kg (230 lb 9.6 oz) Anesthesia Evaluation Pt has had prior anesthetic. History of anesthetic complications - PONV. ROS/MED HX ENT/Pulmonary: (-) tobacco use, asthma and sleep apnea Neurologic: (+) migraines, (-) no seizures and no CVA Cardiovascular: (+) hypertension- - - - - (-) CAD, CHF and arrhythmias METS/Exercise Tolerance: Hematologic: Musculoskeletal: GI/Hepatic: (-) GERD and liver disease Renal/Genitourinary: (-) renal disease Endo: Comment: BMI 40 (+) Obesity, (-) Type I DM and Type II DM Psychiatric/Substance Use: (+) psychiatric history depression Infectious Disease: Malignancy: Other: Physical Exam Airway Mallampati: III TM distance: > 3 FB Neck ROM: full Mouth opening: > 3 cm Respiratory Devices and Support Dental no notable dental history (+) Minor Abnormalities - some fillings, tiny chips Cardiovascular Rhythm and rate: regular Pulmonary breath sounds clear to auscultation OUTSIDE LABS: CBC: Lab Results Component Value Date WBC 9.4 10/23/2023 WBC 11.6 (H) 10/18/2015 HGB 13.7 10/23/2023 HGB 15.8 (H) 10/18/2015 HCT 39.9 10/23/2023 HCT 44.5 10/18/2015 PLT 230 10/23/2023 PLT 259 10/18/2015 BMP: Lab Results Component Value Date NA 143 10/18/2015 NA 137 02/12/2011 POTASSIUM 3.6 10/18/2015 POTASSIUM 3.7 02/12/2011 CHLORIDE 109 10/18/2015 CHLORIDE 103 02/12/2011 CO2 26 10/18/2015 CO2 24 02/12/2011 BUN 14 10/18/2015 BUN 9 02/12/2011 CR 0.92 10/18/2015 CR 0.73 02/12/2011 GLC 96 10/18/2015 GLC 99 02/12/2011 COAGS: No results found for: PTT, INR, FIBR POC: Lab Results Component Value Date HCG Negative 02/05/2024 HCGS Negative 10/18/2015 HEPATIC: Lab Results Component Value Date ALBUMIN 3.9 10/18/2015 PROTTOTAL 8.0 10/18/2015 ALT 82 (H) 10/18/2015 AST 38 10/18/2015 ALKPHOS 143 10/18/2015 BILITOTAL 0.8 10/18/2015 OTHER: Lab Results Component Value Date CRISTIN 8.6 11/01/2022 LIPASE 133 10/18/2015 Anesthesia Plan ASA Status: 3 Anesthesia Type: MAC. Consents Anesthesia Plan(s) and associated risks, benefits, and realistic alternatives discussed. Questions answered and patient/freight representative(s) expressed understanding. - Discussed: - Discussed with: Patient Postoperative Care Pain management: Multi-modal analgesia. PONV prophylaxis: Ondansetron (or other 5HT-3) Comments: Grover Ornelas MD I have reviewed the pertinent notes and labs in the chart from the past 30 days and (re)examined the patient. Any updates or changes from those notes are reflected in this note. # Obesity: Estimated body mass index is 39.58 kg/m?? as calculated from the following: Height as of this encounter: 1.626 m (5' 4). Weight as of this encounter: 104.6 kg (230 lb 9.6 oz). 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 Anesthesia Type: MAC Note: Oropharynx: oral airway in place Level of Consciousness: drowsy and awake Oxygen Supplementation: face mask Level of Supplemental Oxygen (L/min / FiO2): 8 Independent Airway: airway patency satisfactory and stable Dentition: dentition unchanged Vital Signs Stable: post-procedure vital signs reviewed and stable Report to RN Given: handoff report given Patient transferred to: PACU Handoff Report: Identifed the Patient, Identified the Reponsible Provider, Reviewed the pertinent medical history, Discussed the surgical course, Reviewed Intra-OP anesthesia mangement and issues during anesthesia, Set expectations for post-procedure period and Allowed opportunity for questions andacknowledgement of understanding Vitals: Vitals Value Taken Time BP 103/56 02/05/24 0822 Temp 97.4 F Pulse 80 02/05/24 0823 Resp 14 02/05/24 0823 SpO2 96 % 02/05/24 0823 Vitals shown include unfiled device data. Electronically Signed By: Isis Campbell APRN CRNA February 05, 2024 8:24 AM documented in this encounter Plan of Treatment Not on file documented as of this encounter Visit Diagnoses Not on filedocumented in this encounter Administered Medications Inactive Administered Medications - up to 3 most recent administrations Medication Order MAR Action Action Date Dose Rate Site ceFAZolin Sodium (ANCEF) injection 2 g Routine, 2 g, Intravenous, PRE-OP/PRE-PROCEDURE, Starting on Mon02/05/24 at 0535, For 1 dose, Give first dose within 1 hour PRIOR to incision. If patient weight is greater than or equal to 120 kg increase dose to 3 g., Indications: Perioperative Pharmacoprophylaxis, Pre-procedure $Given 02/05/2024 7:33 AM CDT 2 g dexAMETHasone (DECADRON) injection Intravenous, PRN, Administer over 1 Minutes, Starting on Mon02/05/24 at 0736, Anesthesia Intra-op $Given 02/05/2024 7:36 AM CDT 4 mg dexmedeTOMIDine (PRECEDEX) 4 mcg/mL in sodium chloride 0.9 % 50 mL infusion Intravenous, PRN, Starting on Mon02/05/24 at 0740, Anesthesia Intra-op $Given 02/05/2024 8:02 AM CDT 4 mcg $Given 02/05/2024 7:40 AM CDT 4 mcg fentaNYL (PF) (SUBLIMAZE) injection Intravenous, PRN, Administer over 3-5 Minutes, Starting on Mon02/05/24 at 0740, Anesthesia Intra-op $Given 02/05/2024 8:15 AM CDT 25 mcg $Given 02/05/2024 8:06 AM CDT 25 mcg $Given 02/05/2024 8:00 AM CDT 25 mcg ketorolac (TORADOL) injection Intravenous, PRN, Administer over 2 Minutes, Starting on Mon02/05/24 at 0810, Anesthesia Intra-op $Given 02/05/2024 8:10 AM CDT 15 mg lactated ringers infusion at 10 mL/hr, Intravenous, CONTINUOUS, IF patient NOT on dialysis., Pre-procedure, Starting on Mon02/05/24 at 0600, Until Mon02/05/24 at 0822 $New Bag 02/05/2024 7:25 AM CDT $New Bag 02/05/2024 6:07 AM CDT 10 mL/hr lidocaine 2% injection (MDV) Intravenous, PRN, Starting on Mon02/05/24 at 0730, Anesthesia Intra-op $Given 02/05/2024 7:30 AM CDT 60 mg midazolam (VERSED) injection Intravenous, Administer over 2 Minutes, PRN, Starting on Mon02/05/24 at 0728, Anesthesia Intra-op $Given 02/05/2024 7:28 AM CDT 2 mg ondansetron (ZOFRAN) injection Intravenous, PRN, Administer over 2-5 Minutes, Starting on Mon02/05/24 at 0736, Anesthesia Intra-op $Given 02/05/2024 7:36 AM CDT 4 mg phenylephrine (MARVIN-SYNEPHRINE) injection Intravenous, CONTINUOUS PRN, Starting on Mon02/05/24 at 0754, Anesthesia Intra-op $New Bag 02/05/2024 7:54 AM CDT 50 mcg propofol (DIPRIVAN) infusion Intravenous, CONTINUOUS PRN, Starting on Mon02/05/24 at 0730, Anesthesia Intra-op Rate/Dose Change 02/05/2024 8:11 AM CDT 50 mcg/kg/min 31.38 mL/hr Rate/Dose Change 02/05/2024 8:07 AM CDT 80 mcg/kg/min 50.2 08 mL/hr Rate/Dose Change 02/05/2024 7:44 AM CDT 100 mcg/kg/min 62. 76 mL/hr propofol (DIPRIVAN) injection 10 mg/mL vial Intravenous, PRN, Starting on Mon02/05/24 at 0730, Anesthesia Intra-op $Given 02/05/2024 7:30 AM CDT 50 mg documented in this encounter Care Teams Freight Loading Supervisor Relationship Specialty Start Date End Date Clinic, [place] [address] PCP - General 10/19/15 documented as of this encounter
--- OUTSIDE RECORDS SUMMARY | 2024-02-21 07:31 | XMS_ITS | Encounter Summary ---
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 PeriOP Services [address] [place] [id number] Junie Barnes MD [facility] [address] [facility] [address] [place], [place] [id number] Dilation and curettage, pelvic ultrasound under anesthesia Surgery Details Date/Time Status Location OR Service Patient Class Case Class Case Type Trauma Case? 02/05/24 7:30 AM Posted OR OR M 40 Gynecology Oncology Same Day Surgery Elective Panel 1 Procedure LRB Anes Op Region Wound Class Comments Dilation and curettage, pelv ic ultrasound under anesthesia N/A General Vagina II-Clean Cont aminated Surgeon Surgeon Role Service Panel uJnie Barnes MD Primary Gynecology Oncolog y 1 Special Needs *htn-anesthesia alert: motion sickness & ponvOzempic prescribed 2022, did not start using this medicationReq 30 min documented in this encounter Social History Tobacco [...] on file documented as of this encounter Last Filed Vital Signs Vital Sign Reading Time Taken Comments Blood Pressure 106/61 02/05/2024 9:00 AM CDT Pulse 62 02/05/2024 9:00 AM CDT Temperature 36.3 ??C (97.4 ??F) 02/05/2024 8:22 AM CD T Respiratory Rate 16 02/05/2024 9:00 AM CDT Oxygen Saturation 96% 02/05/2024 9:00 AM CDT Inhaled Oxygen Concentration - - Weight 104.6 kg (230 lb 9.6 oz) 02/05/2024 5:45 AM CDT Height 162.6 cm (5' 4) 02/05/2024 5:45 AM CDT Body Mass Index 39.58 02/05/2024 5:45 AM CDT documented in this encounter Discharge Instructions * Discharge Instructions* Monica Mckeon, RYANNE - 02/05/2024 6:10 AM CDT Today you were given 975 mg of Tylenol at 6:05 am. The recommended daily maximum dose is 4000 mg. Today you received Toradol, an antiinflammatory medication similar to Ibuprofen. You should not take other antiinflammatory medication, such as Ibuprofen, Motrin, Advil, Aleve, Naprosyn, etc until 3pm Same Day Surgery Discharge Instructions for Sedation and General Anesthesia It's not unusual to feel dizzy, light-headed or faint for up to 24 hours after surgery or while taking pain medication. If you have these symptoms: sit for a few minutes before standing and have someone assist you when you get up to walk or use the bathroom. You should rest and relax for the next 24 hours. We recommend you make arrangements to have an adult stay with you for at least 24 hours after your discharge. Avoid hazardous and strenuous activity. DO NOT DRIVE any vehicle or operate mechanical equipment for 24 hours following the end of your surgery. Even though you may feel normal, your reactions may be affected by the medication you have received. Do not drink alcoholic beverages for 24 hours following surgery. Slowly progress to your regular diet as you feel able. It's not unusual to feel nauseated and/or vomit after receiving anesthesia. If you develop these symptoms, drink clear liquids (apple juice, raym izzy, broth, 7-up, etc. ) until you feel better. If your nausea and vomiting persists for 24 hours, please notify your surgeon. All narcotic pain medications, along with inactivity and anesthesia, can cause constipation. Drinking plenty of liquids and increasing fiber intake will help. For any questions of a medical nature, call your surgeon. Do not make important decisions for 24 hours. If you had general anesthesia, you may have a sore throat for a couple of days related to the breathing tube used during surgery. You may use Cepacol lozenges to help with this discomfort. If it worsens or if you develop a fever, contact your surgeon. If you feel your pain is not well managed with the pain medications prescribed by your surgeon, please contact your surgeon's office to let them know so they can address your concerns. If you have questions or concerns about your procedure, call Dr. Barnes at [phone] documented in this encounter Medications at Time of Discharge Medication Sig Dispensed Refills Start Date End Date bismuth subsalicylate (PEPTO BISMOL) 262 MG/15ML suspension Take 15 mLs by mouth every 6 hours as needed for indigestion Fexofenadine HCl (YOHANA PO) Take 1 tablet by mouth daily furosemide (LASIX) 20 MG tablet Take 20 mg by mouth daily medroxyPROGESTERone (PROVERA) 10 MG tabletIndications:EIN (endometrial intraepithelial neoplasia) Take 2 tablets (20 mg) by mouth daily 60 tablet 1 02/05/2024 medroxyPROGESTERone (PROVERA) 10 MG tablet Take 20 mg by mouth daily tetracycline (ACHROMYCIN/SUMYCIN) 500 MG capsule Take 500 mg by mouth 4 times daily topiramate (TOPAMAX) 50 MG tablet Take 50 mg by mouth 2 times daily documented as of this encounter Progress Notes * Philly Stratton PA-C - 02/02/2024 9:27 AM CDT GYNECOLOGIC ONCOLOGY FOLLOW-UP VISIT Patient Name: PENG BRAVO : 1990 Date of Visit: 12/01/2023 Referring Provider: Leanna GUADARRAMA, FAX Attending: Junie Barnes (Gynecological/Oncology) Chief Complaint (Molder Operator Oncology): post op History of Present Illness (Molder Operator Oncology): Peng Bravo is a 33 yo premenopausal female with history AUB and PCOS. She is currently undergoing fertility sparing management of EIS with provera. Most recently s/p hysteroscopy D&C with benign pathology. Oncology Treatment Summary: 07/08/2021: Disordered proliferative endometrium 10/25/2022: At least florid CAH with features approaching FIGO grade 1 endometrioid adenocarcinoma 11/15/2022: D&C and IUD placement: fragments of CAH, atropic endometriosis of cervix 11/25/2022: ED visit for vaginal bleeding and abdominal pain, ultrasound consistent with malpositioned IUD, IUD removed. 12/16/2022: significant pelvic/abdominal pain: Diagnostic laparoscopy, hysteroscopy D&C: Final pathology consistent with residual EIN and benign endometrial polyp. 01/19/2023: IUD replaced 02/23/2023: IUD removed due to malpositioning; resumed Megace 04/13/2023: megace was held due to concern for cardiomyopathy (side effects of palpitations/peripheral edema/shortness of breath). endometrial biopsy completed -residual EIN, chronic endometritis likely 2/2 IUD 04/28/2023: ECHO completed and normal. No PE on CT chest. Megace restarted. 05/31/2023: Continued side effects from Megace and Increased pelvic pain and cramping, fever. Patient was then treated for endometritis and switched to Provera. 07/11/2023: D&C: residual EIN but improved in comparison to prior sample. Tolerating Provera well. 09/26/2023: Transfer of care to Dr. Barnes. Discussed repeat D&C with pelvic ultrasound under anesthesia given increasing discomfort / pelvic pain. 10/23/2023: dilation and curettage, pelvic ultrasound under anesthesia, cervical biopsy (Dr. Barnes) Final Diagnosis A. Endometrium, curettings: - Multiple fragments of benign nonphasic endometrium, negative for hyperplasia, atypia and malignancy. - A small amount of normal endocervical tissus. B. Cervix at 12:00, biopsy: - Benign endocervical tissue with focal stromal pigment deposits, most likelyhemosiderin, and without atypia. Genetic Testing (Molder Operator Oncology): None Interval History (Molder Operator Oncology) Peng is here today for a post op visit. She's doing ok. Has cold like symptoms including cough and headache. Occasional abdominal cramping. Some epigastric discomfort when she eats. Relieved with her pathology results. Request Provera refill. Occasional vaginal spotting. Has not followed up with GI, yet, as recommended back in September. Review of Systems: A complete 14-point review of systems is negative except as noted in the above history of present illness. 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 [employer] Former cigarette use Health Maintenance: Pap smear up-to-date Vital Signs: Blood pressure: 116/78, Pulse: 84, Temperature: 97.6 F, Respirations: 16, O2 sat: 98%, Pain Scale: 4, Height: 64 in, Weight: 221.2 lb, BSA: 2.04, BMI: 37.97 kg/m2 Physical Exam (Molder Operator Oncology): General: alert, cooperative, no acute distress Cardiac: regular rate, well-perfused Lungs: no labored breathing on room air Neurologic Exam: no focal deficits Psych: appropriate mood and affect Pelvic: deferred Laboratory Data: CBC Lab Results 06/28/2023 04/13/2023 02/28/2023 11/25/2022 11/02/2022 11/01/2022 CBC WBC x 10^3/uL 11.3 (H) RBC x 10^6/uL 4.81 NRBC % /100 wbc 0.0 HGB g/dL 14.9 HCT % 43.2 MCV fL 89.8 MCH pg 31.0 MCHC g/dL 34.5 RDW % 12.70 PLT x 10^3/uL 257 MPV fL 10.8 Guerita % 63.5 LY % 28.0 MO % 5.9 (L) EO % 2.0 IG % 0.2 Guerita # (ANC) x 10^3/uL 7.2 (H) BA % 0.4 MO # x 10^3/uL 0.7 EO # x 10^3/uL 0.2 BA # x 10^3/uL 0.0 IG # x 10^3/uL 0.02 LY # x 10^3/uL 3.2 Imaging: Pelvic ultrasound 10/26/2022 Impression: Diffusely thickened some but hypervascular endometrium measuring 16 mm. Mildly prominent ovarian volumes bilaterally with multiple ovarian follicles. Pelvic ultrasound 11/25/2022: Low lying IUD, which appears to be in the cervix and pushing on the vaginal wall. Pelvic ultrasound 02/21/2023: IUD is present within the endocervical canal . Problems: EIN Dyspnea (finding) Endometrial adenocarcinoma Endometriosis Passage of bloody stools Possible Postoperative nausea and vomiting Assessment & Plan (Molder Operator Oncology): Peng Bravo is a 32-year-old woman with EIN, currently, on progestin therapy with fertility preservation. 1. EIN, desiring fertility preservation Transfer of care to Dr. Barnes on 09/26/[address] Greer's departure from the practice Tolerating Provera well Intolerance to Megace. Previous IUD use with discomfort/malpositioning leading to removal. Continue to desire fertility sparing management. Had some progestin therapy treatment breaks (2/2 malpositioned IUD x 2 and inability to tolerate Megace) s/p D&C 10/23/23 pathology benign Aware would require 2 negative biopsies in a row prior to attempt. If not ready to become after 2 negative biopsies, can continue on provera & space out D&C to every 6 months Continue on Provera and repeat D&C in 3 months. Refill sent today. Discussed that Provera is NOT effective contraception and should use back-up method if engages in intercourse KELLY referral placed at previous visit 2. Episodes of bloody stools x 2 3. Epigastric discomfort AURE GI referral placed 09/26/2023 reiterated GI referral today 4. Cold Symptoms recommend f/u with PCP if symptoms worsen or persist encouraged Tylenol and ibuprofen for headache. afebrile. Plan repeat hysteroscopy D&C 3 months from prior (January) Pain Care Management: Pain Scale: 4 Patient Care needs: Depressions Status: Was not screened Reason: Patient Refused; Screening Date: 09/26/2023 Psycho-Social PHQ-9 Follow-up Plan (if applicable): Smoking Status: Smoking Tobacco : Former smoker; Smokeless Tobacco : Never used smokeless tobacco; Vaping : Never vaped Kiah Escobar CNP documented in this encounter Nursing Notes * Monica Blount RN - 02/05/2024 10:35 AM CDT All discharge instructions reviewed with responsible adult. All questions answered. Vital signs stable. No distress. O2 saturation greater than 92% on Room Air. Discharge to home. 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] Postoperative Diagnosis: * No post-op diagnosis entered * Prosthetic Devices: None Surgeon(s) and Assistants (if any): Surgeon(s): Junie Barnes MD Resistance Machine Welder Setter: Vianney Zamarripa RN; Philly Calixto RN Scrub Person: Romi Castro Anesthesia: MAC Estimated Blood Loss: 5 cc Urine Output: N/A Drains: None Specimens: ID Type Source Tests Collected by Time Destination 1 : Endometrial curettings Curettings Endometrium SURGICAL PATHOLOGY EXAM Junie Barnes MD 02/05/2024 8:04 AM Complications: None Findings/Conclusions: On pelvic examination under anesthesia, bilateral vulva were within normal limits and without masses or lesions. The cervix was grossly normal with prominent ectropion. There were no cervical masses or lesions. The vaginal mucosa was hyperestrogenic and did not contain any gross abnormalities. The uterus sounded to 7 cm. The endometrium was thin via ultrasound at start of procedure. There was scant amount of endometrial curettings and these were sent to surgical pathology for routine analysis. A paracervical block was performed during the procedure. Pelvic ultrasound under anesthesia was performed prior to reversal of anesthesia. There was a simple-appearing cyst ~2 x 3 cm on the right ovary. No other abnormal findings to account for pelvic painand discomfort. Post-procedure endometrial stripe was thin. Condition on discharge from OR: Satisfactory Junie Barnes MD Gynecologic Oncology MD Oncology [facility] * Op Note - Junie Barnes MD - 02/05/2024 8:01 AM CDT Gynecologic Oncology Operative Report 02/05/2024 Peng Bravo [id number] PREOPERATIVE DIAGNOSIS: EIN desiring fertility preservation POSTOPERATIVE DIAGNOSIS: Same PROCEDURES: Procedure(s): Dilation and curettage, pelvic ultrasound under anesthesia SURGEON: Junie Barnes MD JEWEL OLIVING MACHINE OPERATOR: There were no qualified assistants available to assist in the case. ANESTHESIA: MAC ESTIMATED BLOOD LOSS: 5 cc URINE OUTPUT: N/A INDICATIONS: Peng Bravo is a 33 year old premenopausal female diagnosed with EIN with features concerning for grade 1 endometrioid endometrial adenocarcinoma in October 2022. She has undergone medical management for fertility preservation. She is currently on PO medroxyprogesterone (Provera) 20 mg daily. Last endometrial sampling was performed on 10/23/2023 and was negative for hyperplasia or malignancy. She underwent GI evaluation that included EGD and colonoscopy in early January 2024. She was diagnosed with H. Pylori and prescribed treatment with interval follow-up visit scheduledin February 2024. She desired to proceed with repeat endometrial sampling. FINDINGS: On pelvic examination under anesthesia, bilateral vulva were within normal limits and without masses or lesions. The cervix was grossly normal with prominent ectropion. There were no cervical masses or lesions. The vaginal mucosa was hyperestrogenic and did not contain any gross abnormalities. The uterus sounded to 7 cm. The endometrium was thin via ultrasound at start of procedure. There was scant amount of endometrial curettings and these were sent to surgical pathology for routine analysis. A paracervical block was performed during the procedure. Pelvic ultrasound under anesthesia was performed prior to reversal of anesthesia. There was a simple-appearing cyst ~2 x 3 cm on the right ovary. No other abnormal findings to account for pelvic painand discomfort. Post-procedure endometrial stripe was thin. SPECIMENS: ID Type Source Tests Collected by Time Destination 1 : Endometrial curettings Curettings Endometrium SURGICAL PATHOLOGY EXAM Junie Barnes MD 02/05/2024 8:04 AM COMPLICATIONS: None. CONDITION: Stable to PACU. OPERATIVE PROCEDURE IN DETAIL: Consent was reviewed with the patient in the preoperative setting and confirmed. She received 2 grams IV Cefazolin for surgical antibiotic prophylaxis. Bilateral sequential compression devices were placed for venous thromboembolism prophylaxis. A surgical debriefing was performed with the operating room team prior to patient entry into the operating room. The patient was transferred to the operating room and placed in dorsal supine position. MAC anesthetic was obtained in the usual manner without noted difficulties. The patient was then positioned onto [facility]. The patient was prepped and draped for the above-mentioned procedure. A Delarosa catheter was not placed. Timeout was called at which point the patient's name, procedure and operative site was confirmed bythe operative team. A sterile speculum was placed into the patient's vagina and the posterior lip of the cervix was grasped with a single tooth tenaculum. The uterus was then gently sounded to 7 cm. The uterus was then gently dilated. A paracervical block was performed. Gentle curettage was then performed until the characteristic gritty texture was appreciated, under ultrasound guidance. The tenaculum was removed and the sites appeared to be hemostatic. There was minimal vaginal bleeding noted.The speculum was then removed. Endometrial curettings were sent to surgical pathology for routine analysis. A pelvic ultrasound was performed prior to reversal of anesthesia. There were no qualified assistants available to assist in the case. All instruments and sponge counts were correct x 2. The patient was then awakened and taken to the recovery room in stable condition. I was present and scrubbed for the entire procedure. Junie Barnes MD Gynecologic Oncology [facility] Oncology 02/05/2024 documented in this encounter Plan of Treatment Not on file documented as of this encounter Procedures Procedure Name Priority Date/Time Associated Diagnosis Comments SURGICAL PATHOLOGY EXAM Routine 02/05/2024 8:04 AM CDT DILATION AND CURETTAGE, UTERUS, WITH ULTRASOUND GUIDANCE 02/05/2024 7:28 AM CDT Endometrial intraepithelial neoplasia (EIN) Special Needs *htn-anesthesia alert: motion sickness & ponvOzempic prescribed 2022, did not start using this medicationReq 30 min HCG QUALITATIVE URINE STAT 02/05/2024 5:46 AM CDT documented in this encounter Results * Surgical Pathology Exam (02/05/2024 8:04 AM CDT) Case Report Surgical Pathology Report ? Case: [id number] ? Authorizing Provider: ??Junie Barnes MD ? Collected: ? 02/05/2024 08:04 AM ? Ordering Location: ? [facility] ?Received: ?02/05/2024 08:36 AM ? [facility] ? Pathologist: ? Lila Jacinto MD ? Specimen: ?Endometrium, Endometrial curettings ? 02/06/2024 2:48 PM [facility] Final Diagnosis A. Endometrium, curettage: -Fragments of inactive endometrium. -No residual atypical hyperplasia identified. -Superficial strips of benign squamous and endocervical epithelium 02/06/2024 2:48 PM [facility] Clinical Information Endometrial intraepithelial neoplasia (EIN). 02/06/2024 2:48 PM [facility] Gross Description A(1). Endometrium, Endometrial curettings: [...] (ASCP) 02/05/2024 9:09 AM 02/06/2024 2:48 PM [facility] Microscopic Description Microscopic examination was performed. 02/06/2024 2:48 PM CDT LABORATORY Performing Labs The technical component of this testing was completed at [facility]. Stain controls for all stains resulted within this report have been reviewed and show appropriate reactivity. 02/06/2024 2:48 PM CDT LABORATORY Case Images 02/06/2024 2:48 PM CDT LABORATORY Curettings ENDOMETRIAL STRUCTURE / Unknown 02/05/2024 8:04 AM CDT 02/05/2024 8:36 AM CDT Junie Barnes MD LAB - [facility] [address] Lab (1st floor, no room number) [place] [address], [facility] [address] 1[address], [address] [place] [address], [place] [phone] * HCG qualitative urine (02/05/2024 5:46 AM CDT) hCG Urine Qualitative Negative Negative MICHAEL 02/05/2024 5:56 AM CDT LABORATORY Comment:This test is for scr eening purposes. Results should be interpreted along with the clinical picture. Confirmation testing is available if warranted by ordering [id number], HCG Quantitative . Urine MID-STREAM URINE SPECIMEN / Unknown Non-blood Collection / Unknown 02/05/2024 5:46 AM CDT 02/05/2024 5:50 AM CDT Philly Stratton PA-C LAB - URINE O RDERABLES LABORATORY [facility] [address] 1[address], [address] [place] [address], 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 Hold if patient has taken acetaminophen within 4 hours. Maximum acetaminophen dose from all sources = 75 mg/kg/day not to exceed 4 grams/day., Pre-procedure $Given 02/05/2024 6:06 AM CDT 975 mg BUPivacaine 0.5 % - EPINEPHrine 1:200,000 injection PRN, Starting on Mon02/05/24 at 0808, Intra-procedure $Given 02/05/2024 8:08 AM CDT 30 mLs Operative Site/Surgical Site fentaNYL (PF) (SUBLIMAZE) injection 50 mcg 50 mcg, Intravenous, EVERY 5 MIN PRN, severe pain, Give fentaNYL (SUBLIMAZE) first if HYDROmorphone (DILAUDID) also ordered., Starting on Mon02/05/24 at 0828, Administer fentaNYL (SUBLIMAZE) for acute pain control. Move to HYDROmorphone (DILAUDID): - IF patient has received up to 200 mcg of fentaNYL (SUBLIMAZE), OR - IF patient has received 2 doses of fentaNYL (SUBLIMAZE) AND continues to have severe pain (pain score greater than or equal to seven (7) or is unable to participate in post op recovery due to pain. Wait 5 minutes AFTER last fentaNYL (SUBLIMAZE) dose before administering HYDROmorphone (DILADUDID). Postop Anesthesia Phase I only. Notify Provider to assess for uncontrolled pain or analgesic side effects. DO NOT revert back to fentanyl (SUBLIMAZE) after administering HYDROmorphone (DILAUDID)., PACU $Given 02/05/2024 8:36 AM CDT 50 mcg $Given 02/05/2024 8:31 AM CDT 50 mcg HYDROmorphone (DILAUDID) injection 0.2 mg 0.2 mg, Intravenous, EVERY 5 MIN PRN, moderate pain, Starting on Mon02/05/24 at 0828, Use FentaNYL (SUBLIMAZE) first if ordered. Maximum total cumulative dose NOT to exceed 2 mg. DO NOT revert back to fentanyl (SUBLIMAZE) after administering HYDROmorphone (DILAUDID). Notify Provider to assess for uncontrolled pain or analgesic side effects., PACU $Given 02/05/2024 8:54 AM CDT 0.2 mg HYDROmorphone (DILAUDID) injection 0.4 mg 0.4 mg, Intravenous, EVERY 5 MIN PRN, severe pain, Starting on Mon02/05/24 at 0828, Use FentaNYL (SUBLIMAZE) first if ordered. Maximum total cumulative dose NOT to exceed 2 mg. DO NOT revert back to fentanyl (SUBLIMAZE) after administering HYDROmorphone (DILAUDID). Notify Provider to assess for uncontrolled pain or analgesic side effects., PACU $Given 02/05/2024 8:44 AM CDT 0.4 mg ketorolac (TORADOL) injection 15 mg 15 mg, Intravenous, ONCE, On Mon02/05/24 at 0900, For 1 dose, Can cause pain on injection. If ordered intravenously (IV) : administer through a running maintenance fluid over 1 minute followed by a flush. If patient complains of pain on injection, may dilute 15-30 mg in 5 mL and push over 1 to 2 minutes. $Given 02/05/2024 8:56 AM CDT 15 mg lactated ringers infusion at 10 mL/hr, Intravenous, CONTINUOUS, IF patient NOT on dialysis., Pre-procedure, Starting on Mon02/05/24 at 0600, Until Mon02/05/24 at 0822 $New Bag 02/05/2024 7:25 AM CDT $New Bag 02/05/2024 6:07 AM CDT 10 mL/hr oxyCODONE (ROXICODONE) tablet 5 mg 5 mg, Oral, ONCE PRN, other, pain control or improvement in physical function.??, Starting on Mon02/05/24 at 0828, For 1 dose, Hold oral PRN dose for analgesic side effects. Notify provider to assess for uncontrolled pain or analgesic side effects. Hold while on IV FOOD AND BEVERAGE OPERATIONS MANAGER or with regular IV opioid dosing. $Given 02/05/2024 9:21 AM CDT 5 mg scopolamine (TRANSDERM) 72 hr patch 1 patch 1 patch, Transdermal, EVERY 72 HOURS, Administer over 72 Hours, First dose on Mon02/05/24 at 0700, Apply patch to skin, behind ear. Remove every 72 hours. DO NOT CUT PATCH. If dose is for a half or quarter patch, RN to remove only half or quarter of the backing. Each 1.5 mg patch delivers 1 mg of scopolamine. Reminder: Remove previous patch before applying new patch., Pre-procedure $Patch/Med Applied 02/05/2024 6:57 AM CDT 1 patch Behind Right Ear sodium chloride (PF) 0.9% PF flush 3 mL 3 mL, Intracatheter, EVERY 8 HOURS, First dose on Mon02/05/24 at 0600, to lock peripheral IV dormant line, Pre-procedure $Given 02/05/2024 6:08 AM CDT 3 mLs documented in this encounter Active and Recently Administered Medications Times are shown in CDT. Scheduled Medication Order 02/03/2024 02/04/2024 02/05/2024 acetaminophen (TYLENOL) tablet 975 mg (COMPLETED) 975 mg, Oral, ONCE, On Mon02/05/24 at 0600, For 1 dose, Give within 60 min of procedure. Hold if patient has taken acetaminophen within 4 hours. Maximum acetaminophen dose from all sources = 75 mg/kg/day not to exceed 4 grams/day., Pre-procedure 0606 ($Given - Provi pam: Debbie Kennedy RN) acetaminophen (TYLENOL) tablet 975 mg 975 mg, Oral, ONCE, On Mon02/05/24 at 1430, For 1 dose, Administer 6 hours after pre-op dose, if given. Maximum acetaminophen dose from all sources = 75 mg/kg/day not to exceed 4 grams/day. ceFAZolin Sodium (ANCEF) injection 2 g (COMPLETED) Routine, 2 g, Intravenous, PRE-OP/PRE-PROCEDURE, Starting on Mon02/05/24 at 0535, For 1 dose, Give first dose within 1 hour PRIOR to incision. If patient weight is greater than or equal to 120 kg increase dose to 3 g., Indications: Perioperative Pharmacoprophylaxis, Pre-procedure 0733 ($Given - Provi pam: Isis Campblel APRN CRNA) ibuprofen (ADVIL/MOTRIN) tablet 800 mg 800 mg, Oral, ONCE, On Mon02/05/24 at 1430, For 1 dose, Administer when patient tolerating oral intake AND 6 hours after last ketorolac (TORADOL) dose, if given. Give with food. ketorolac (TORADOL) injection 15 mg (COMPLETED) 15 mg, Intravenous, ONCE, On Mon02/05/24 at 0900, For 1 dose, Can cause pain on injection. If ordered intravenously (IV) : administer through a running maintenance fluid over 1 minute followed by a flush. If patient complains of pain on injection, may dilute 15-30 mg in 5 mL and push over 1 to 2 minutes. 0856 ($Given - Provi pam: Eileen Hendrickson RN) scopolamine (TRANSDERM) 72 hr patch 1 patch (CANCELED)(Linked Group 1) 1 patch, Transdermal, EVERY 72 HOURS, Administer over 72 Hours, First dose on Mon02/05/24 at 0700, Apply patch to skin, behind ear. Remove every 72 hours. DO NOT CUT PATCH. If dose is for a half or quarter patch, RN to remove only half or quarter of the backing. Each 1.5 mg patch delivers 1 mg of scopolamine. Reminder: Remove previous patch before applying new patch., Pre-procedure 0657 ($Patch/Med Tami lied - Provider: Razia Medrano RN)0822 (Due: Patch/Med Removed - Provider: Orders Generic Provider - Comment: Time automatically adjusted from order being discontinued) sodium chloride (PF) 0.9% PF flush 3 mL (CANCELED) 3 mL, Intracatheter, EVERY 8 HOURS, First dose on Mon02/05/24 at 0600, to lock peripheral IV dormant line, Pre-procedure 0608 ($Given - Provi pam: Debbie Kennedy RN) Continuous Medication Order 02/03/2024 02/04/2024 02/05/2024 lactated ringers infusion (CANCELED) at 10 mL/hr, Intravenous, CONTINUOUS, IF patient NOT on dialysis., Pre-procedure, Starting on Mon02/05/24 at 0600, Until Mon02/05/24 at 0822 0607 ($New Bag - Pro vider: Debbie Kennedy RN)0724 (Paused - Provider: Isis Campbell APRN CRNA - Comment: Switch to gravity)0725 ($New Bag - Provider: Isis Campbell APRN CRNA)0818 (Anesthesia Volume Adjustment - Provider: Isis Campbell APRN CRNA)0825 (Stopped - Provider: Isis Campbell APRN CRNA) PRN Medication Order 02/03/2024 02/04/2024 02/05/2024 BUPivacaine 0.5 % - EPINEPHrine 1:200,000 injection (CANCELED) PRN, Starting on Mon02/05/24 at 0808, Intra-procedure 0808 ($Given - Provi pam: Junie Barnes MD) fentaNYL (PF) (SUBLIMAZE) injection 50 mcg (CANCELED) 50 mcg, Intravenous, EVERY 5 MIN PRN, severe pain, Give fentaNYL (SUBLIMAZE) first if HYDROmorphone (DILAUDID) also ordered., Starting on Mon02/05/24 at 0828, Administer fentaNYL (SUBLIMAZE) for acute pain control. Move to HYDROmorphone (DILAUDID): - IF patient has received up to 200 mcg of fentaNYL (SUBLIMAZE), OR - IF patient has received 2 doses of fentaNYL (SUBLIMAZE) AND continues to have severe pain (pain score greater than or equal to seven (7) or is unable to participate in post op recovery due to pain. Wait 5 minutes AFTER last fentaNYL (SUBLIMAZE) dose before administering HYDROmorphone (DILADUDID). Postop Anesthesia Phase I only. Notify Provider to assess for uncontrolled pain or analgesic side effects. DO NOT revert back to fentanyl (SUBLIMAZE) after administering HYDROmorphone (DILAUDID)., PACU 0831 ($Given - Provi pam: Eileen Hendrickson RN)0836 ($Given - Provider: Eileen Hendrickson RN) HYDROmorphone (DILAUDID) injection 0.2 mg (CANCELED) 0.2 mg, Intravenous, EVERY 5 MIN PRN, moderate pain, Starting on Mon02/05/24 at 0828, Use FentaNYL (SUBLIMAZE) first if ordered. Maximum total cumulative dose NOT to exceed 2 mg. DO NOT revert back to fentanyl (SUBLIMAZE) after administering HYDROmorphone (DILAUDID). Notify Provider to assess for uncontrolled pain or analgesic side effects., PACU 0854 ($Given - Provi pam: Eileen Hendrickson RN) HYDROmorphone (DILAUDID) injection 0.4 mg (CANCELED) 0.4 mg, Intravenous, EVERY 5 MIN PRN, severe pain, Starting on Mon02/05/24 at 0828, Use FentaNYL (SUBLIMAZE) first if ordered. Maximum total cumulative dose NOT to exceed 2 mg. DO NOT revert back to fentanyl (SUBLIMAZE) after administering HYDROmorphone (DILAUDID). Notify Provider to assess for uncontrolled pain or analgesic side effects., PACU 0844 ($Given - Provi pam: Eileen Hendrickson RN) oxyCODONE (ROXICODONE) tablet 5 mg (COMPLETED) 5 mg, Oral, ONCE PRN, other, pain control or improvement in physical function.??, Starting on Mon02/05/24 at 0828, For 1 dose, Hold oral PRN dose for analgesic side effects. Notify provider to assess for uncontrolled pain or analgesic side effects. Hold while on IV FOOD AND BEVERAGE OPERATIONS MANAGER or with regular IV opioid dosing. 0921 ($Given - Provi pam: Monica Mckeon RN) Linked Groups Order Group 1: scopolamine (TRANSDERM) 72 hr patch 1 patch (CANCELED)Jump to med 1 patch, Transdermal, EVERY 72 HOURS, Administer over 72 Hours, First dose on Mon02/05/24 at 0700, Apply patch to skin, behind ear. Remove every 72 hours. DO NOT CUT PATCH. If dose is for a half or quarter patch, RN to remove only half or quarter of the backing. Each 1.5 mg patch delivers 1 mg of scopolamine. Reminder: Remove previous patch before applying new patch., Pre-procedure And scopolamine (TRANSDERM-SCOP) Patch in Place (CANCELED) First dose on Mon02/05/24 at 0700, Chart every shift, confirming that patch is still in place on patient (no barcode scan needed). See patch order for dose information., Pre-procedure documented in this encounter Care Teams Graphite Grinder Relationship Specialty Start Date End Date [facility], [place] [address] PCP - General 10/19/15 documented as of this encounter
--- OUTSIDE RECORDS SUMMARY | 2024-02-21 07:31 | XMS_ITS | Encounter Summary ---
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] Procedures MI DILATION/CURETTAGE DIAG/THER NON OB MI US GUIDANCE, INTRAOPERATIVE Dilation and curettage, pelvic ultrasound under anesthesia Periop Services [address] [place] [address] Referral ID Status Reason Start Date Expiration Date Visits Re quested Visits Authorized [id number] 1 1 Encounter Details Date Type Department Care Team (Latest Contact Info) Description 02/05/2024 5:11 AM CDT - 02/05/2024 10:35 AM CDT Hospital Encounter [facility] PreOP/Phase II [address] [place] [address] Junie Barnes MD [facility] [address] [facility] [address] [place], [place] [address] EIN (endometrial intraepithelial neoplasia) (Primary Dx) Discharge Disposition: Home or Self Care Social History Tobacco Use Types Packs/Day Years [...] these symptoms, drink clear liquids (apple juice, ramy izzy, broth, 7-up, etc. ) until you [...] about your procedure, call Dr. Barnes at [phone] documented in this encounter Medications at Time [...] FAX Attending: Junie Barnes (Gynecological/Oncology) Chief Complaint (Environmental Health Specialist Oncology): post op History of Present Illness (Environmental Health Specialist Oncology): Peng Bravo is a 33 yo [...] most likelyhemosiderin, and without atypia. Genetic Testing (Environmental Health Specialist Oncology): None Interval History (Environmental Health Specialist Oncology) Peng is here today for a [...] AUB Surgical History: Bunion removal Cholecystectomy 2015 records management associate History: G0 PCOS Last Pap 10/25/2022 NILM HPV negative, NILM in No history of abnormal Pap smears Allergies: avocado banana Medications: Topamax (Topiramate Oral) Furosemide Oral 20 mg tablet 1 tablet PO 2 tabs daily Provera (Medroxyprogesterone Oral) 10 mg tablet 2 tablet orally daily. 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 [employer] Former cigarette use Health Maintenance: Pap smear up-to-date Vital Signs: Blood pressure: 116/78, Pulse: 84, Temperature: 97.6 F, Respirations: 16, O2 sat: 98%, Pain Scale: 4, Height: 64 in, Weight: 221.2 lb, BSA: 2.04, BMI: 37.97 kg/m2 Physical Exam (Environmental Health Specialist Oncology): General: alert, cooperative, no acute distress [...] Postoperative nausea and vomiting Assessment & Plan (Environmental Health Specialist Oncology): Peng Bravo is a 32-year-old woman [...] Assistants (if any): Surgeon(s): Junie Barnes MD Blasting Entryman: Vianney Zamarripa RN; Philly Calixto RN Scrub [...] OR: Satisfactory Junie Barnes MD Gynecologic Oncology CT Oncology [facility] * Op Note - Junie Barnes MD - 02/05/2024 8:01 AM CDT Gynecologic Oncology Operative Report 02/05/2024 Peng Bravo [id number] PREOPERATIVE DIAGNOSIS: EIN desiring fertility preservation POSTOPERATIVE DIAGNOSIS: Same PROCEDURES: Procedure(s): Dilation and curettage, pelvic ultrasound under anesthesia SURGEON: Junie Barnes MD SCRAP BREAKER: There were no qualified assistants available to [...] difficulties. The patient was then positioned onto [facility]. The patient was prepped and draped for [...] entire procedure. Junie Barnes MD Gynecologic Oncology [facility] Oncology 02/05/2024 documented in this encounter [...] Case Report Surgical Pathology Report ? Case: [id number] ? Authorizing Provider: ??Junie Barnes MD ? Collected: ? 02/05/2024 08:04 AM ? Ordering Location: ? [facility] ?Received: ?02/05/2024 08:36 AM ? [facility] OR ? Pathologist: ? Lila Jacinto MD ? Specimen: ?Endometrium, Endometrial curettings ? 02/06/2024 2:48 PM CDT LABORATORY Final Diagnosis A. Endometrium, curettage: -Fragments of inactive endometrium. -No residual atypical hyperplasia identified. -Superficial strips of benign squamous and endocervical epithelium 02/06/2024 2:48 PM [facility] Clinical Information Endometrial intraepithelial [...] (ASCP) 02/05/2024 9:09 AM 02/06/2024 2:48 PM T LABORATORY Microscopic Description Microscopic examination was performed. 02/06/2024 2:48 PM [facility] Performing Labs The technical component of this testing was completed at [facility]. Stain controls for all stains resulted within this report have been reviewed and show appropriate reactivity. 02/06/2024 2:48 PM CDT LABORATORY Case Images 02/06/2024 2:48 PM CDT LABORATORY Curettings ENDOMETRIAL STRUCTURE / Unknown 02/05/2024 8:04 AM CDT 02/05/2024 8:36 AM CDT Junie Barnes MD LAB - [facility] LABORAT[facility] [address] Lab (1st floor, no room number) [place] [address], [facility] [address] 1[address] floor, [address] [place] [address], [facility] [phone] * HCG qualitative urine (02/05/2024 5:46 AM CDT) hCG Urine Qualitative Negative Negative MICHAEL 02/05/2024 5:56 AM CDT LABORATORY Comment:This test is for scr eening purposes. Results should be interpreted along with the clinical picture. Confirmation testing is available if warranted by ordering [id number], HCG Quantitative . Urine MID-STREAM URINE SPECIMEN / Unknown Non-blood Collection / Unknown 02/05/2024 5:46 AM CDT 02/05/2024 5:50 AM CDT Philly Stratton PA-C LAB - URINE O RDERABLES LABORATORY [facility] [address] 1st floor, [address] [address], [facility] [phone] documented in this encounter Visit Diagnoses Diagnosis EIN (endometrial intraepithelial neoplasia)- Primary Endometrial intraepithelial neoplasia (EIN) EIN (endometrial intraepithelial neoplasia) Endometrial intraepithelial neoplasia (EIN) documented in this [...] $Given 02/05/2024 6:06 AM CDT 975 mg fentaNYL (PF) (SUBLIMAZE) injection 50 mcg 50 [...] analgesic side effects. Hold while on IV PAVING CREW FOREMAN or with regular IV opioid dosing. $Given [...] Pre-procedure 0733 ($Given - Provi pam: Isis Campbell APRN CRNA) ibuprofen (ADVIL/MOTRIN) tablet 800 mg [...] 0657 ($Patch/Med Tami lied - Provider: Razia Medrano, RYANNE)0822 (Due: Patch/Med Removed - Provider: Orders Generic [...] analgesic side effects. Hold while on IV PAVING CREW FOREMAN or with regular IV opioid dosing. 0921 ($Given - Provi pam: Monica Mckeon, RYANNE) Linked Groups Order Group 1: scopolamine (TRANSDERM) [...] Pre-procedure documented in this encounter Care Teams Certified Pest Control Technician Relationship Specialty Start Date End Date [address] [id number] PCP - General 10/19/15 documented as of this encounter
--- OUTSIDE RECORDS SUMMARY | 2024-02-21 07:31 | XMS_ITS | Encounter Summary ---
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] Procedures MS DILATION/CURETTAGE DIAG/THER NON OB MS US GUIDANCE, INTRAOPERATIVE Dilation and curettage, pelvic ultrasound under anesthesia Per[facility] [address] [place] [address] Referral ID Status Reason Start Date Expiration Date Visits Re quested Visits Authorized [id number] 1 1 Encounter Details Date Type Department Care Team (Latest Contact Info) Description 02/05/2024 6:28 AM CDT - 02/05/2024 11:59 PM CDT Hospital Encounter [facility] [address] [place] [address] Junie Barnes MD [facility] [address] [facility] [address] [place], [place] [address] EIN (endometrial intraepithelial neoplasia) Discharge Disposition: Home or Self Care Social [...] on file documented as of this encounter Medications at Time of Discharge [...] times daily documented as of this encounter Plan of Treatment Not on file documented as of this encounter Procedures Procedure Name Priority Date/Time Associated Diagnosis Comments US PELVIC TRANSABDOMINAL AND TRANSVAGINAL Routine 02/05/2024 8:42 AM CDT EIN (endometrial intraepithelial neoplasia) documented in this encounter Results * US Pelvic Complete with Transvaginal [...] follow-up. MICHELLE HO MD Junie Barnes MD [facility] US ORDERABLES documented in this encounter Visit Diagnoses Diagnosis EIN (endometrial intraepithelial neoplasia) Endometrial intraepithelial neoplasia (EIN) documented in this encounter Care Teams Environmental Emergencies Assistant Relationship Specialty [place] [address] PCP - General 10/19/15 documented as of this encounter
--- OUTSIDE RECORDS SUMMARY | 2024-02-21 07:31 | XMS_ITS | Encounter Summary ---
Author Organization [place] Address [address] [place] [address] Care Team Providers Care Tennis Instructor Name Role Phone [facility] Primary Care Provider Encounter Details Date Type Department Care Team (Latest Contact Info) Description 02/05/2024 Travel Social History Tobacco Use Types Packs/Day Years [...] on filedocumented in this encounter Care Teams Tennis Instructor Relationship Specialty Start Date End Date [address] [address] PCP - General 10/19/15 documented as of this encounter
--- NOTE | 2024-02-21 07:45 | CRLHL7_ITS ---
For Patients: As a result of the Cures Act, medical imaging exams and procedure reports are released immediately into your electronic medical record. You may view this report before your referring provider. If you have questions, please contact your health care provider. BILATERAL DIGITAL SCREENING MAMMOGRAM WITH COMPUTER-AIDED DETECTION AND TOMOSYNTHESIS CLINICAL HISTORY: BILATERAL breast pain. COMPARISON: None. TECHNIQUE: Digital BILATERAL mammogram in 4 projections with computer-aided detection. Tomosynthesis was used in this interpretation. BREAST COMPOSITION: The breasts are heterogeneously dense, which may obscure small masses. FINDINGS: 3D CC/MLO BILATERAL mammogram images submitted. No suspicious mass or architectural distortion. No suspicious calcifications or adenopathy. IMPRESSION: Normal BILATERAL mammograms. No suspicious findings. RECOMMENDATIONS: Clinical follow-up. Age-appropriate screening mammography. BI-RADS: 1. Negative. A lay language report of this examination will be provided to the patient. Dictated by: Keivn Stoll MD @02/21/2024 8:51:00 AM /luis/nereida SP/Dictated by: Kevin Stoll MD @ 02/21/2024 8:57:00 AM (Electronically Signed)
== END 2024-02-21 07:30 | disposition home or self-care (01) ==
LOC: MAMMO 07:29
PROVIDERS: PCP Internal Medicine; Visit Provider Obstetrics & Gynecology Gynecologic Oncology
DX: N64.4 Mastodynia (principal); C54.1 Malignant neoplasm of endometrium
CPT/HCPCS: 77066; G0279

== ENCOUNTER 2024-04-26 07:43 | Outpatient (CLI) | payer OTHER, MEDICAID, SELFPAY ==
--- OUTSIDE RECORDS SUMMARY | 2024-04-30 06:58 | XMS_ITS | Clinical Summary ---
Author Organization [facility] Address [address] [place] [address] Care Team Providers Care Field Recorder Name Role Phone [facility], [facility] Primary Care Provider Allergies Active Allergy Reactions Criticality Noted Date Comments Adhesive Tape 02/05/2024 Burned skin Avocado Itching 11/11/2022 Banana Itching 11/11/2022 Medications Fexofenadine HCl (YOHANA PO) Take 1 tablet by mouth daily Active furosemide (LASIX) 20 MG tablet Take 20 mg by mouth daily Active medroxyPROGESTERone (PROVERA) 10 MG tablet Take 20 mg by mouth daily Active topiramate (TOPAMAX) 50 MG tablet Take 50 mg by mouth 2 times daily Active tetracycline (ACHROMYCIN/SUMYCIN ) 500 MG capsule Take 500 mg by mouth 4 times daily Active bismuth subsalicylate (PEPTO BISMOL) 262 MG/15ML suspension Take 15 mLs by mouth every 6 hours as needed for indigestion Active medroxyPROGESTERone (PROVERA) 10 MG tabletIndications:E IN (endometrial intraepithelial neoplasia) Take 2 tablets (20 mg) by mouth daily 60 tablet 1 02/05/20 24 Active Active Problems Problem Noted Date Diagnosed Date EIN (endometrial intraepithelial neoplasia) 11/2023 Perineal abscess 04/18/2013 Resolved Problems Problem Noted Date Diagnosed Date Resolved Date Endometrial cancer 10/23/2023 4 Encounters Date Type Department Care Team Description 02/05/2024 7:30 AM CDT - 02/05/2024 9:00 AM CDT Surgery [facility] PeriOP Services [address] [place] [address] Junie Barnes MD Dilation and curettage, pelvic ultrasound under anesthesia 02/05/2024 7:25 AM CDT Anesthesia Event [facility] PeriOP Services [address] [place] [address] Grover Ornelas MD 02/05/2024 6:28 AM CDT - 02/05/2024 11:59 PM CDT Hospital Encounter [facility] Imaging [address] [place] [address] Junie Barnes MD EIN (endometrial intraepithelial neoplasia) Discharge Disposition: Home or Self Care 02/05/2024 5:11 AM CDT - 02/05/2024 10:35 AM CDT Hospital Encounter [facility] PreOP/Phase II [address] [place] [address] Junie Barnes MD EIN (endometrial intraepithelial neoplasia) (Primary Dx) Discharge Disposition: Home or Self Care 02/05/2024 Travel from Last 3 Months Family History Medical [...] School Help Needed Not on file 09/25 Comments No Sex and Gender Information Value Date Recorded Sex Assigned at Not on file Legal Sex Female 4:12 AM MOTIVATIONAL SPEAKER Gender Identity Not on file Sexual Orientation [...] 05/09/2026 05/09/2016, 12/02/2013, 10/22/2002, Additional history exists RSV VACCINE (1 - 1-dose 75+ series) 2065 HPV IMMUNIZATION Completed 12/17/2007, 06/2006, 01/03/2007 HEPATITIS [...] not requiring specific follow-up. MICHELLE HO MD us Junie Barnes MD IM US ORDERABLES Final Res ult * Surgical Pathology Exam (02/05/2024 8:04 AM CDT) Case Report Surgical Pathology Report ? Case: [id number] ? Authorizing Provider: ??Junie Barnes MD ? Collected: ? 02/05/2024 08:04 AM ? Ordering Location: ? [facility] ?Received: ?02/05/2024 08:36 AM ? [facility] ? Pathologist: ? Lila Jacinto MD ? Specimen: ?Endometrium, Endometrial curettings ? 02/06/2024 2:48 PM CDT LABORATORY Final Diagnosis A. Endometrium, curettage: -Fragments of inactive endometrium. -No residual atypical hyperplasia identified. -Superficial strips of benign squamous and endocervical epithelium 02/06/2024 2:48 PM [facility] LABORATORY Clinical Information Endometrial intraepithelial neoplasia (EIN). [...] Microscopic examination was performed. 02/06/2024 2:48 PM T LABORATORY Performing Labs The technical component of this testing was completed at [facility]. Stain controls for all stains resulted within this report have been reviewed and show appropriate reactivity. 02/06/2024 2:48 PM CDT LABORATORY Case Images 02/06/2024 2:48 PM CDT LABORATORY Curettings ENDOMETRIAL STRUCTURE / Unknown 02/05/2024 8:04 AM CDT 02/05/2024 8:36 AM CDT Junie Barnes MD LAB - BEAKER AP Final Resul t LABORATORY [facility] [address] Lab (1st floor, no room number) [place] [address], [facility] LABORATORY [facility] [address] 1st floor, [address] [place] [address], [place] [phone] * HCG qualitative urine (02/05/2024 5:46 AM CDT) hCG Urine Qualitative Negative Negative MICHAEL 02/05/2024 5:56 AM CDT LABORATORY Comment:This test is for scr eening purposes. Results should be interpreted along with the clinical picture. Confirmation testing is available if warranted by ordering [id number], HCG Quantitative . Urine MID-STREAM URINE SPECIMEN / Unknown Non-blood Collection / Unknown 02/05/2024 5:46 AM CDT 02/05/2024 5:50 AM CDT Philly Stratton PA-C LAB - URINE ORDERABLE S Final Result LABORATORY [facility] [address] 1st floor, [address] [place] [address], [facility] [phone] from Last 3 Months Insurance [employer] [facility] Care Teams Field Recorder Relationship Specialty Start Date End Date [facility], [address] [address] PCP - General 10/19/15
--- OUTSIDE RECORDS SUMMARY | 2024-04-30 06:59 | XMS_ITS | Encounter Summary ---
Author Organization [place] Address [address] [place] [address]. [place] [address] Care Team Providers Care Drywall Foreman Name Role Phone [facility] Primary Care Provider Encounter Details Date Type Department Care Team (Late st Contact Info) Description 12/19/2023 Medical Correspondence [facility] [address] [place] [phone] Scan, Non-Provider Social History Tobacco Use [...] on file Legal Sex Female 4:12 AM LEAD PORTFOLIO MANAGER Gender Identity Not on file Sexual Orientation Not on file documented as of this encounter Plan of Treatment Not on file documented as of this encounter Visit Diagnoses Not on filedocumented in this encounter Care Teams Drywall Foreman Relationship Specialty Start Date End Date [facility] [address] [place] [address] PCP - General 10/19/15 documented as of this encounter
--- OUTSIDE RECORDS SUMMARY | 2024-04-30 06:59 | XMS_ITS | Encounter Summary ---
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
--- OUTSIDE RECORDS SUMMARY | 2024-04-30 06:59 | XMS_ITS | Encounter Summary ---
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] Procedures GA DILATION/CURETTAGE DIAG/THER NON OB [place] US GUIDANCE, INTRAOPERATIVE Dilation and curettage, pelvic [facility] [address] [place] [address] Phone: tel: Referral ID Status Reason Start Date Expiration Date Visits Re quested Visits Authorized [id number] 1 1 Encounter Details Date Type Department Care Team (Late st Contact Info) Description 02/05/2024 7:30 AM CDT - 02/05/2024 9:00 AM CDT [facility] [address] [place] [id number] Junie Barnes MD [facility] [address] [facility] [address] [place] [address] Dilation and curettage, pelvic ultrasound under anesthesia Surgery Details Date/Time Status Location OR Service Patient Class Case Class Case Type Trauma Case? 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 Barnes at [phone] documented in this encounter Medications at Time of Discharge bismuth subsalicylate (PEPTO BISMOL) 262 MG/15ML suspension Take 15 mLs by mouth every 6 hours as needed for indigestion Fexofenadine HCl (YOHANA PO) Take 1 tablet by mouth daily furosemide (LASIX) 20 MG tablet Take 20 mg by mouth daily medroxyPROGESTERone (PROVERA) 10 MG tabletIndications:EI N (endometrial intraepithelial neoplasia) Take 2 tablets (20 mg) by mouth daily 60 tablet 1 medroxyPROGESTERone (PROVERA) 10 MG tablet Take 20 [...] FAX Attending: Junie Barnes (Gynecological/Oncology) Chief Complaint (Production Clerks Supervisor Oncology): post op History of Present Illness (Production Clerks Supervisor Oncology): Peng Bravo is a 33 yo [...] most likelyhemosiderin, and without atypia. 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 [employer] Former cigarette use Health Maintenance: Pap smear up-to-date Vital Signs: Blood pressure: 116/78, Pulse: 84, Temperature: 97.6 F, Respirations: 16, O2 sat: 98%, Pain Scale: 4, Height: 64 in, Weight: 221.2 lb, BSA: 2.04, BMI: 37.97 kg/m2 Physical Exam (Production Clerks Supervisor Oncology): General: alert, cooperative, no acute distress [...] Postoperative nausea and vomiting Assessment & Plan (Production Clerks Supervisor Oncology): Peng Bravo is a 32-year-old woman [...] Assistants (if any): Surgeon(s): Junie Barnes MD Towel Distributor: Vianney Zamarripa RN; Philly Calixto RN Scrub [...] OR: Satisfactory Junie Barnes MD Gynecologic Oncology [place] [facility] * Op Note - Junie Barnes MD - 02/05/2024 8:01 AM CDT Gynecologic Oncology Operative Report 02/05/2024 Peng Bravo [id number] PREOPERATIVE DIAGNOSIS: EIN desiring fertility preservation POSTOPERATIVE DIAGNOSIS: Same PROCEDURES: Procedure(s): Dilation and curettage, pelvic ultrasound under anesthesia SURGEON: Junie Barnes MD SNACK STEWARD: There were no qualified assistants available to [...] difficulties. The patient was then positioned onto [facility]. The patient was prepped and draped for the above-mentioned procedure. A Delaroas catheter was not placed. Timeout was called [...] entire procedure. Junie Barnes MD Gynecologic Oncology [facility] Oncology 02/05/2024 documented in this encounter [...] Case Report Surgical Pathology Report ? Case: [id number] ? Authorizing Provider: ??Junie Barnes MD ? Collected: ? 02/05/2024 08:04 AM ? Ordering Location: ? [facility] ?Received: ?02/05/2024 08:36 AM ? [facility] [...] component of this testing was completed at [facility]. Stain controls for all stains resulted within this report have been reviewed and show appropriate reactivity. 02/06/2024 2:48 PM CDT LABORATORY Case Images 02/06/2024 2:48 PM CDT LABORATORY Curettings ENDOMETRIAL STRUCTURE / Unknown 02/05/2024 8:04 AM CDT 02/05/2024 8:36 AM CDT Junie Barnes MD LAB - BEAKER AP Final Resul t LABORATORY [facility] [address] Lab (1st floor, no room number) [place] [address], [facility] LABORATORY [facility] [address] 1st floor, [address] [place] [address], [facility] [phone] * HCG qualitative urine (02/05/2024 5:46 AM CDT) hCG Urine Qualitative Negative Negative MICHAEL 02/05/2024 5:56 AM CDT LABORATORY Comment:This test is for scr eening purposes. Results should be interpreted along with the clinical picture. Confirmation testing is available if warranted by ordering [id number], HCG Quantitative . Urine MID-STREAM URINE SPECIMEN / Unknown Non-blood Collection / Unknown 02/05/2024 5:46 AM CDT 02/05/2024 5:50 AM CDT Philly Stratton PA-C LAB - URINE ORDERABLE S Final Result LABORATORY [facility] [address] 1st floor, [address] [place] [address], [facility] [phone] documented in this encounter Visit Diagnoses Diagnosis [...] analgesic side effects. Hold while on IV WAITSTAFF or with regular IV opioid dosing. $Given 02/05/2024 9:21 AM CDT 5 mg scopolamine (TRANSDERM) 72 hr patch 1 patch 1 patch, Transdermal, Administer over 72 Hours, EVERY 72 HOURS, First dose on Mon02/05/24 at 0700, Apply [...] mg/kg/day not to exceed 4 grams/day., Pre-procedure 06 ($Given - Provi pam: Debbie Kennedy RN) [...] patch (CANCELED)(Linked Group 1) 1 patch, Transdermal, Administer over 72 Hours, EVERY 72 HOURS, First dose on Mon02/05/24 at 0700, Apply [...] APRN CRNA)0818 (Anesthesia Volume Adjustment - Provider: Issi Campbell APRN CRNA)0825 (Stopped - Provider: Isis [...] PACU 0854 ($Given - Provi pam: Eileen Hendrickson, RYANNE) HYDROmorphone (DILAUDID) injection 0.4 mg (CANCELED) 0.4 [...] PACU 0844 ($Given - Provi pam: Eileen Hendrickson, RYANNE) oxyCODONE (ROXICODONE) tablet 5 mg (COMPLETED) 5 mg, Oral, ONCE PRN, other, pain control or improvement in physical function.??, Starting on Mon02/05/24 at 0828, For 1 dose, Hold oral PRN dose for analgesic side effects. Notify provider to assess for uncontrolled pain or analgesic side effects. Hold while on IV WAITSTAFF or with regular IV opioid dosing. 0921 ($Given - Provi pam: Monica Mckeon RN) Linked Groups Order Group 1: scopolamine (TRANSDERM) 72 hr patch 1 patch (CANCELED)Jump to med 1 patch, Transdermal, Administer over 72 Hours, EVERY 72 HOURS, First dose on Mon02/05/24 at 0700, Apply [...] Pre-procedure documented in this encounter Care Teams Policy Director Relationship Specialty Start Date End Date [facility], [address] [place] [address] PCP - General 10/19/15 documented as of this encounter
--- OUTSIDE RECORDS SUMMARY | 2024-04-30 06:59 | XMS_ITS | Encounter Summary ---
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] Procedures [place] DILATION/CURETTAGE DIAG/THER NON OB [place] US GUIDANCE, INTRAOPERATIVE Dilation and curettage, pelvic ultrasound under anesthesia [facility] PeriOP Services [address] [place] [address] Phone: tel: Referral ID Status Reason Start Date Expiration Date Visits Re quested Visits Authorized [id number] 1 1 Encounter Details Date Type Department Care Team (Latest Contact Info) Description 02/05/2024 6:28 AM CDT - 02/05/2024 11:59 PM CDT Hospital Encounter [facility] Imaging [address] [place] [address] Junie Barnes MD [facility] [address] [facility] [address] [place], [place] [address] EIN (endometrial intraepithelial neoplasia) Discharge Disposition: Home [...] on file 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
--- OUTSIDE RECORDS SUMMARY | 2024-04-30 06:59 | XMS_ITS | Encounter Summary ---
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] Procedures [place] DILATION/CURETTAGE DIAG/THER NON OB OR US GUIDANCE, INTRAOPERATIVE Dilation and curettage, pelvic ultrasound under anesthesia [facility] Services [address] [place] [address] Phone: tel: Referral ID Status Reason Start Date Expiration Date Visits Re quested Visits Authorized [id number] 1 1 Encounter Details Date Type Department Care Team (Late st Contact Info) Description 02/05/2024 7:25 AM CDT Anesthesia Event [facility] Services [address] [place] [address] Grover Ornelas MD [facility] [address] [place] [address] Anesthesia Record Procedure Summary Procedure Name Responsible [...] recorded are pre- induction. 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 Questions answered and patient/ict sales representative(s) expressed understanding. - Discussed: - Discussed [...] Care Transfer Note - Isis Campbell APRN OVERLOCK COLLAR SETTER - 02/05/2024 8:24 AM CDT Patient: Myah [...] 14 02/05/24 0823 SpO2 96 % 02/05/24 08 Vitals shown include unfiled device data. Electronically [...] dose to 3 g., Indications: Perioperative Pharmacoprophylaxis, Pre-procedureIndications:Perioperati ve Pharmacoprophylaxis $Given 02/05/2024 7:33 AM CDT 2 g [...] mg documented in this encounter Care Teams Campaign Worker Relationship Specialty Start Date End Date [facility], [place] [id number] PCP - General 10/19/15 documented as of this encounter
--- OUTSIDE RECORDS SUMMARY | 2024-04-30 06:59 | XMS_ITS | Clinical Summary ---
Author Organization [facility] Address [place], [place] [address] Care Team Providers Care Principal Ios Developer Name Role Phone Pcp, No Unavailable Unavailable [...] Name Administration Dates Next Due COVID-19 vaccine ([employer]ech 30mcg/0.3mL) KAVITA GILBERT 07/21/2020,06/30/2020 DTaP 11/20/1995, [...] Comments Blood Pressure 120/71 07/11/2023 9:44 AM EVENT HOST Pulse 74 07/11/2023 9:44 AM EVENT HOST Temperature 36.4 ??C (97.5 ??F) 07/11/2023 9:44 AM CS T Respiratory Rate 16 07/11/2023 9:44 AM EVENT HOST Oxygen Saturation 99% 07/11/2023 9:44 AM EVENT HOST Inhaled Oxygen Concentration - - Weight 97.7 kg (215 lb 6.2 oz) 07/11/2023 5:57 A M EVENT HOST Height 162.6 cm (5' 4) 07/11/2023 5:57 AM EVENT HOST Body Mass Index 36.97 07/11/2023 5:57 AM EVENT HOST Plan of Treatment Health Maintenance Due Date [...] this topic Medical Devices Implanted Type Area Predatory Animal Trapper Device Identifier Shelf Expiration Date Model / Serial / Lot Sys Intrauterine Mirena - [id number] Implanted:Qty: 1 on 11/15/2022 by Hortencia Greer MD at [facility] N/A: Uterus [employer] 11/16/2024 [id number] / [id number] / [id number] Procedures Procedure Name Priority Date/Time Associated Diagnosis Comments HPV HIGH RISK Routine 10/25/2022 8:55 AM CDT from Last 3 Months or Most Recently Relevant to Health Maintenance Results * HPV HIGH RISK (10/25/2022 8:55 AM CDT) TYPE 16 Negative Negative 11/02/2022 9:38 AM CDT [facility] TRAL LABORATORY TYPE 18 Negative Negative 11/02/2022 9:38 AM CDT [facility] TRAL LABORATORY OTHER HIGH RISK TYPES Negative Negative 11/02/2022 9:38 AM CDT [facility] TRA LABORATORY Other (Cervical) Client Collect / Unknown 10/25/2022 8:55 AM CDT 10/29/2022 11:39 AM CDT Narrative [facility] - 11/02/2022 9:38 AM CDT HPV types 16, 18, 31, 33, 35, 39, 45, 51, 52, 56, 58, 59, 66 and 68 DNA were undetectable or below the pre-set threshold. Methodology: Jer Julianne 4800 HPV Test September Uziel [facility] [address] [place] [address], from Last 3 Months or Most Recently [...] Preferences, Provider to review later Care Teams Principal Ios Developer Relationship Specialty Start Date End Date Adalberto Todd MD [address] [place] [address] PCP - General Internal Medicine 04/21/23 Pcp, No . 11/08/22
--- OUTSIDE RECORDS SUMMARY | 2024-04-30 06:59 | XMS_ITS | Referral Summary ---
Author Organization [place] Address [address] [place] [address] Care Team Providers Care Drier Operator Head Name Role Phone [facility], [facility] [place] Primary Care Provider Encounters Date Type Department Care Team Description 02/05/2024 7:25 AM CDT Anesthesia Event [facility] PeriOP Services [address] [place] [phone] Grover Ornelas MD 02/05/2024 Travel 02/05/2024 6:28 AM CDT - 02/05/2024 11:59 PM CDT Hospital Encounter [facility] [address] [place] [phone] Junie aBrnes MD EIN (endometrial intraepithelial neoplasia) Discharge Disposition: Home or Self Care 02/05/2024 7:30 AM CDT - 02/05/2024 9:00 AM CDT Surgery [facility] Services [address] [place] [phone] Junie Barnes MD Dilation and curettage, pelvic ultrasound under anesthesia 02/05/2024 5:11 AM CDT - 02/05/2024 10:35 AM CDT Hospital Encounter [facility] PreOP/Phase II [address] [place] [phone] Junie Barnes MD EIN (endometrial intraepithelial neoplasia) (Primary Dx) Discharge Disposition: Home or Self Care from Last 3 Months Allergies Active Allergy [...] Diagnosed Date Resolved Date Endometrial cancer 10/23/2023 Social History Tobacco Use Types Packs/Day Years [...] on file 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 MICHELLE HO MD Junie Barnes MD [facility] [place] ORDERABLES Final Res ult * Surgical Pathology Exam (02/05/2024 8:04 AM CDT) Case Report Surgical Pathology Report ? Case: [id number] ? Authorizing Provider: ??Junie Barnes MD ? Collected: ? 02/05/2024 08:04 AM ? Ordering Location: ? [facility] ?Received: ?02/05/2024 08:36 AM ? [facility] ? Pathologist: ? Lila Jacinto MD ? Specimen: ?Endometrium, Endometrial curettings ? 02/06/2024 2:48 PM CDT LABORATORY Final Diagnosis A. Endometrium, curettage: -Fragments of inactive endometrium. -No residual atypical hyperplasia identified. -Superficial strips of benign squamous and endocervical epithelium 02/06/2024 2:48 PM [facility] Clinical Information Endometrial intraepithelial neoplasia (EIN). [...] component of this testing was completed at [facility]. Stain controls for all stains resulted within this report have been reviewed and show appropriate reactivity. 02/06/2024 2:48 PM CDT LABORATORY Case Images 02/06/2024 2:48 PM CDT LABORATORY Curettings ENDOMETRIAL STRUCTURE / Unknown 02/05/2024 8:04 AM CDT 02/05/2024 8:36 AM CDT us Junie Barnes MD LAB - BEAKER AP Final Resul t LABORATORY [facility] [address] Lab (1st floor, no room number) [place] [address], [facility] [address] 1st floor, [address] [place] [address], [facility] [phone] * HCG qualitative urine (02/05/2024 5:46 AM CDT) hCG Urine Qualitative Negative Negative MICHAEL 02/05/2024 5:56 AM CDT LABORATORY Comment:This test is for scr eening purposes. Results should be interpreted along with the clinical picture. Confirmation testing is available if warranted by ordering [id number], HCG Quantitative . Urine MID-STREAM URINE SPECIMEN / Unknown Non-blood Collection / Unknown 02/05/2024 5:46 AM CDT 02/05/2024 5:50 AM CDT Philly Stratton PA-C LAB - URINE ORDERABLE S Final Result LABORATORY [facility] [address] 1st floor, [address] [place] [address], [place] [phone] from Last 3 Months Insurance [facility] Care Teams Drier Operator Head Relationship Specialty Start Date End Date [facility], [address] [address] PCP - General 10/19/15
--- OUTSIDE RECORDS SUMMARY | 2024-04-30 06:59 | XMS_ITS | Encounter Summary ---
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] Procedures MT DILATION/CURETTAGE DIAG/THER NON OB MT US GUIDANCE, INTRAOPERATIVE Dilation and curettage, pelvic ultrasound under anesthesia [facility] PeriOP Services [address] [place] [address] Phone: tel: Referral ID Status Reason Start Date Expiration Date Visits Re quested Visits Authorized [id number] 1 1 Encounter Details Date Type Department Care Team (Latest Contact Info) Description 02/05/2024 5:11 AM CDT - 02/05/2024 10:35 AM CDT Hospital Encounter [facility] PreOP/Phase II [address] [place] [address] Junie Barnes MD [facility] [address] [facility] [address] [place] [address] EIN (endometrial intraepithelial neoplasia) (Primary Dx) Discharge [...] on file Legal 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 Barnes at [phone] documented in this encounter Medications at Time [...] mg) by mouth daily 60 tablet 1 4 medroxyPROGESTERone (PROVERA) 10 MG tablet Take 20 [...] FAX Attending: Junie Barnes (Gynecological/Oncology) Chief Complaint (Software Qa Manager Oncology): post op History of Present Illness (Software Qa Manager Oncology): Peng Bravo is a 33 yo [...] most likelyhemosiderin, and without atypia. 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 [employer] Former cigarette use Health Maintenance: Pap smear up-to-date Vital Signs: Blood pressure: 116/78, Pulse: 84, Temperature: 97.6 F, Respirations: 16, O2 sat: 98%, Pain Scale: 4, Height: 64 in, Weight: 221.2 lb, BSA: 2.04, BMI: 37.97 kg/m2 Physical Exam (Software Qa Manager Oncology): General: alert, cooperative, no acute distress [...] Postoperative nausea and vomiting Assessment & Plan (Software Qa Manager Oncology): Peng Bravo is a 32-year-old woman [...] Assistants (if any): Surgeon(s): Junie Barnes MD Municipal Court Magistrate: Vianney Zamarripa RN; Philly Calixto RN Scrub [...] OR: Satisfactory Junie Barnes MD Gynecologic Oncology [facility] * Op Note - Junie Barnes MD - 02/05/2024 8:01 AM CDT Gynecologic Oncology Operative Report 02/05/2024 Peng Bravo [id number] PREOPERATIVE DIAGNOSIS: EIN desiring fertility preservation POSTOPERATIVE DIAGNOSIS: Same PROCEDURES: Procedure(s): Dilation and curettage, pelvic ultrasound under anesthesia SURGEON: Junie Barnes MD MORTGAGE PROTECTION SALES: There were no qualified assistants available to [...] difficulties. The patient was then positioned onto [facility]. The patient was prepped and draped [...] entire procedure. Junie Barnes MD Gynecologic Oncology [facility]cology 02/05/2024 documented in this encounter [...] Case Report Surgical Pathology Report ? Case: [id number] ? Authorizing Provider: ??Junie Barnes MD ? Collected: ? 02/05/2024 08:04 AM ? Ordering Location: ? [facility] ?Received: ?02/05/2024 08:36 AM ? [facility] ? Pathologist: ? Lila Jacinto MD ? Specimen: ?Endometrium, Endometrial curettings ? 02/06/2024 2:48 PM [facility] Final Diagnosis A. Endometrium, curettage: -Fragments of inactive endometrium. -No residual atypical hyperplasia identified. -Superficial strips of benign squamous and endocervical epithelium 02/06/2024 2:48 PM [facility] Clinical Information Endometrial intraepithelial neoplasia (EIN). 02/06/2024 2:48 PM [facility] Gross Description A(1). Endometrium, Endometrial curettings: [...] (ASCP) 02/05/2024 9:09 AM 02/06/2024 2:48 PM [facility] Microscopic Description Microscopic examination was performed. 02/06/2024 2:48 PM [facility] Performing Labs The technical component of this testing was completed at [facility]. Stain controls for all stains resulted within this report have been reviewed and show appropriate reactivity. 02/06/2024 2:48 PM CDT LABORATORY Case Images 02/06/2024 2:48 PM CDT LABORATORY Curettings ENDOMETRIAL STRUCTURE / Unknown 02/05/2024 8:04 AM CDT 02/05/2024 8:36 AM CDT Junie Barnes MD LAB - BEAKER AP Final Resul t LABORATORY [facility] [address] Lab (1st floor, no room number) [place] [address], [facility] [address] 1st floor, Room [address] [place] [address], [place] [phone] * HCG qualitative urine (02/05/2024 5:46 AM CDT) hCG Urine Qualitative Negative Negative MICHAEL 02/05/2024 5:56 AM CDT LABORATORY Comment:This test is for scr eening purposes. Results should be interpreted along with the clinical picture. Confirmation testing is available if warranted by ordering [id number], HCG Quantitative . Urine MID-STREAM URINE SPECIMEN / Unknown Non-blood Collection / Unknown 02/05/2024 5:46 AM CDT 02/05/2024 5:50 AM CDT Philly Stratton PA-C LAB - URINE ORDERABLE S Final Result LABORATORY [facility] [address] 1st floor, [address] [place] [address], [place] [phone] documented in this encounter Visit Diagnoses Diagnosis [...] analgesic side effects. Hold while on IV COUNTY LIBRARY DIRECTOR or with regular IV opioid dosing. $Given [...] analgesic side effects. Hold while on IV COUNTY LIBRARY DIRECTOR or with regular IV opioid dosing. 0921 [...] Pre-procedure documented in this encounter Care Teams Pillow Agent Relationship Specialty Start Date End Date [address] [address] PCP - General 10/19/15 documented as of this encounter
--- OUTSIDE RECORDS SUMMARY | 2024-04-30 06:59 | XMS_ITS | Data Portability ---
Author Organization [place] [facility] Address [address] [place] [address] [place] [address] Assessment Encounter Date Assessment Date Assessment LastModified by Organization Details LastModified Time 11/04/2019 11/04/2019 Negative COVID-19 [id number] Not available 02/03/2020 17:04:46 Plan of Treatment [...] Diagnosis ICD10 Code 95 Deedee Garibay NP [facility] [address] [place] [address] 11/04/2019 14:20:25 11/04/2019 14:22:09 434 Deedee Garibay NP [facility] [address] [place] [address] 12/02/2019 14:09:45 12/02/2019 14:11:51 [address] Kaushik Roger MD [facility] [address] [place] [phone] 02/17/2020 14:54:24 02/17/2020 15:32:46 Allergic rhinitis caused by pollen [id number] J30.1 Health Concerns Section Related Observation LastModified [...] mouth, can't function Kaushik Roger MD [address] [place], [address], [facility] 02/17/2020 15:29:19 OBGyn Episode No OBEpisode recorded.
== END 2024-04-26 07:44 | disposition home or self-care (01) ==
LOC: NFLDREF 04-30 06:57
PROVIDERS: PCP Internal Medicine; Referring Provider Internal Medicine; Visit Provider Internal Medicine
DX: I10 Essential (primary) hypertension (principal); Z13.6 Encounter for screening for cardiovascular disorders
CPT/HCPCS: 80053; 80061

== ENCOUNTER 2024-06-13 10:21 | Emergency (ER) | payer OTHER, SELFPAY ==
[2024-06-13 10:44] VITALS: BP 142/102; PULSE 76; RESP 16; TEMP 36.6; O2SAT 99; BMI 39.7
--- NOTE | 2024-06-13 11:14 | CRLHL7_ITS ---
For Patients: As a result of the Century Cures Act, medical imaging exams and procedure reports are released immediately into your electronic medical record. You may view this report before your referring provider. If you have questions, please contact your health care provider. INDICATION: Headache, neck pain. TECHNIQUE: CTA head with contrast bolus tracking, 3D angiographic rendering using maximum intensity projection (MIP) and images permanently archived. FINDINGS: There is normal opacification of the intracranial vasculature. There is no large vessel occlusion. No aneurysm is identified. IMPRESSION: Unremarkable head CTA. Please note that all CT scans at this facility use dose modulation, iterative reconstruction, and/or weight-based dosing when appropriate to reduce radiation dose to as low as reasonably achievable. Dictated by Yousif Diez MD @ 06/13/2024 3:37:18 PM (Electronically Signed)
--- NOTE | 2024-06-13 11:15 | CRLHL7_ITS ---
For Patients: As a result of the Century Cures Act, medical imaging exams and procedure reports are released immediately into your electronic medical record. You may view this report before your referring provider. If you have questions, please contact your health care provider. INDICATION: Headache, neck pain. TECHNIQUE: CTA neck with contrast bolus tracking, 3D angiographic rendering using maximum intensity projection (MIP) and images permanently archived. FINDINGS: There is no significant carotid artery stenosis or dissection. There is no significant vertebral artery stenosis or dissection. The soft tissues of the neck are within normal limits. The cervical spine is in normal alignment. IMPRESSION: Unremarkable neck CTA. Please note that all CT scans at this facility use dose modulation, iterative reconstruction, and/or weight-based dosing when appropriate to reduce radiation dose to as low as reasonably achievable. Dictated by Yousif Diez MD @ 06/13/2024 3:38:17 PM (Electronically Signed)
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
[2024-06-13] MEDS: KETOROLAC 15 MG/ML inj IVP (11:38)
== END 2024-06-13 12:53 | disposition home or self-care (01) ==
PROVIDERS: Emergency Provider Emergency Medicine; PCP Internal Medicine
DX: S13.4XXA Sprain of ligaments of cervical spine, initial encounter (principal); V43.52XA Car driver injured in collision with other type car in traffic accident, initial encounter
CPT/HCPCS: 70496; 70498; 72125; 96374; 99284; 99285; J1885; Q9967

== ENCOUNTER 2025-04-06 15:29 | Emergency (ER) | payer OTHER, SELFPAY ==
--- OUTSIDE RECORDS SUMMARY | 2024-05-24 06:36 | XMS_ITS | Continuity of Care Document ---
Author Organization [facility] Address [address] [address] [place] [address] Phone Care Team Providers Care Mangle Catcher Name Role Phone Finn DIAMOND, Alejo Unavailable Unavailable Medications Medication Instructions Dosage Effective Dates (start - stop) Status Comments furosemide 20 mg tablet take 1 tablet by oral route every day 20 MG - Active Provera 10 mg tablet take 1 tablet by or al route every day 10 MG - Active Topamax 50 mg tablet take 1 tablet by or al route 2 times every day 50 MG - Active Procedures Procedure Date Breath Test - Urea Established Level 4 Colonoscopy Flex; W/bx 1/mx Ugi Endo; W/bx 1/mx Level Iv-surg Path Gross/micro Offic/outpt E&m New Mod-hi Routine Serum Collection Advance Directives Directive Yes / No Effective Date File Name No Information Encounters Encounter Description Practice Location Reason(s) For Visit Diagnoses Date Provider Providers Copied on Encounter [facility], [address] [address], [place], [id number], [place] tel:[phone] [facility] No Information Finn DIAMOND Alejo. [address], [place], [id number] , [place]. tel:[phone] [facility], [address] [address], [place], [id number], [place] tel:[phone] [facility] Other specified bacterial intestinal infections 4 Jamie Carrero. [address], [place], [id number] , [place]. tel: [phone] Referring Provider: Referral Self, USE FOR SELF REFERRALS. Established Level 4 [facility], [address] [address], [place], [id number], [place] tel:[phone] [facility] GI Symptoms or Concerns (chief complaint) H. pylori infection 4 Finn Dhillon. [address], [place], [id number] , [place]. tel: [phone] Referring Provider: Referral Self, USE FOR SELF REFERRALS. [facility], [address] [address], [place], [id number], [place] tel:[phone] [facility] H. pylori infection 4 Jamie Carrero. [address] [facility], [facility] [address], [place], [id number] , [place]. tel: [phone] [facility], [address] [address], [place], [id number], [place] tel:[phone] [facility] GI Symptoms or Concerns (chief complaint) Gastritis determined by endoscopyDiverticul osis of colon without diverticulitisAlter ed bowel habitsOther gastritis without bleedingHelicobacte r pylori as the cause of diseases classd elswhrLymphocytosis (symptomatic) 4 Jamie Carrero. [address] [facility], [place], [id number] , [place]. [phone] Referring Provider: Referral Self, USE FOR SELF REFERRALS. [facility], [address] [address], [place], [id number], [place] tel:[phone] [facility] No Information 4 Boogie Hernandez. [address] [facility] [address], [place], [id number] , [place]. [phone] Offic/outpt E&m New Mod-hi [facility], [address] [address], [place], [id number], [place] tel:[phone] [facility] GI Symptoms or Concerns (chief complaint) Epigastric abdominal painNauseaRectal bleeding 4 Finn Dhillon. [address] [facility] [place], [place], [id number] , [place]. tel: [phone] Referring Provider: Junie Barnes MD R, [address] [facility] [address], [place], [address]. tel:[phone] [facility], [address] [address], [place], [id number], [place] tel:[phone] [facility] No Information 4 Boogie Hernandez. [address] [facility] [place], [address], [place], [id number] , [place]. [phone] Family History Family Member Type Diagnosis Age [...] Insurance type Covered alliance party ID Rosamaria staley(s) [facility] [id number] [place] Medical Assistance CI [id number] Social History Type Description Quantity Date Captured Comments Sex Female Smoking Status No Information Chief Complaint And Reason For Visit No Information Reason For Referral Reason For Referral No Information Plan Of Treatment Date Type Action Status Referral Ordered: H. pylori Breath Test Appointment date/timeframe: 05/03/2024 ordered Referral Ordered: EGD Appointment date/timeframe: 01/23/2024 ordered Referral Ordered: Colonoscopy Appointment date/timeframe: 01/23/2024 ordered History Of Present Illness Encounter Date Complaint History Of Prese nt Illness GI Symptoms or Concerns 33-year- old female patient who presents for follow-up of abdominal pain. This is a virtual clinic visit which the patient consented for and confirmed that they are in a private place.We have seen the patient last on 12/19/2023 for evaluation of epigastric abdominal pain. This started in July 2023. At that time she had the flu and developed epigastric abdominal pain, black tarry stool and diarrhea. She had positive FOBT at the urgent care. Pain was postprandial. It was associated with nausea without vomiting. This pain used to happen couple times a week and other days she was asymptomatic. She did report significant stress and anxiety around the time when the symptoms started.She also reported similar symptoms before removing her gallbladder in 2015. Bowel movements were okay. She did have sensation of incomplete evacuation.Blood work done during the last visit showed normal liver enzymes. Normal lipase at 24. Normal thyroid tests. Normal celiac serology. And normal CRP.We started her on omeprazole 40 mg daily.And referred her for upper endoscopy and colonoscopy for further evaluation.Her upper endoscopy was done on 01/23/2024:Reported normal esophagus, gastritis, normal duodenum. Biopsies showed H. pylori gastritis. Duodenal intraepithelial lymphocytosis with normal architecture. Random colon biopsies were normal.Today she presents for follow-up. She is scheduled to have H. pylori test in April.Patient reports that she continues to have the same symptoms. She reports that she did take the therapy that was prescribed for her a month ago. Unfortunately she did not receive the quadruple therapy correctly. She did not receive the tetracycline. She only took the metronidazole along with Pepto-Bismol and the omeprazole.Connection got interrupted in the middle of our conversation. I called her pharmacy and they confirmed that she did not get tetracycline last month and only received the metronidazole. I attempted to call the patient twice but she did not continuous pickling line pickler the phone. I left her a detailed voice message with the recommendations of repeating the course for H. 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 GI Symptoms or Concerns GI Symptoms or [...] the past before removing her gallbladder in 2015.Report that her bowel movements varies. In the past she dealt with significant constipation that became slightly better with Topamax. Reports 1 bowel movement a day, type 4 [place] stool chart, but reports feeling of incomplete evacuation all the time.She follows with gynecology for malignant neoplasm of the endometrium ( I do not have records ). she reports that her dog or horse racing official suggested to be seen by Gastroenterology before her next checkup.Past medical history Malignant neoplasm of the endo monitored by Gynecology. Past surgical history: Laparoscopic evaluation for abdominal pain a year ago for possible endometriosis. Cholecystectomy in 2016. Family history: No colorectal cancer. No IBD. 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 No alcohol misuse and no recreational drug use. Functional Status Date Functional Assessmen t No Information Instructions Date Instruction Additional Infor jaimie A new prescription f or quadruple therapy was sent to the pharmacy. I gave the pharmacist my direct phone number to reach out to me if there was any problem with her prescriptions. I called the patient and left her voice message letting her know that we sent a new course for H. pylori and I informed her about the importance of taking the complete course appropriately. Informed her to ensure that she has all 4 medications before she starts the course.H. pylori testing in 2 months to confirm eradication is already scheduled. Related to H. pylori infection Diverticulosis/Diverticulitis Re lated to Diverticulosis of colon [...] minutes during this clinical encounter, mostly with [id number] encounter, care coordination, orders, and dictation. Related to Epigastric abdominal pain Assessments Type Assessment Date No Information Patient Care Teams Name Effective Dates (start - stop) Status Members No Information
--- OUTSIDE RECORDS SUMMARY | 2024-05-24 06:36 | XMS_ITS | Continuity of Care Document ---
Author Organization [facility] Address [address] [address] [place] [address] Phone Care Team Providers Care Chamfering Machine Operator Name Role Phone Finn DIAMOND, Alejo Unavailable [...] Encounter [facility], [address] [address], [place], [id number], [place] tel:[phone] [facility] No Information Finn DIAMOND Alejo. [address] [facility], [place], [id number] , [place]. tel:[phone] [facility], [address] [address], [place], [id number], [place] tel:[phone] [facility] Other specified bacterial intestinal infections 4 Jamie Carrero. [address] [facility], [place], [id number] , [place]. tel: [phone] Referring Provider: Referral Self, USE FOR SELF REFERRALS. Established Level [address] [facility], [address] [address], [place], [id number], [place] tel:[phone] [facility] GI Symptoms or Concerns (chief complaint) H. pylori infection 4 Finn Dhillon. [address] [facility], [address], [place], [id number] , [place]. tel: [phone] Referring Provider: Referral Self, USE FOR SELF REFERRALS. [facility], [address] [address], [place], [id number], [place] tel:[phone] [facility] H. pylori infection 4 Jamie Carrero. [address] [facility], [facility] [address], [place], [id number] , [place]. tel: [phone] [facility], [address] [address], [place], [id number], [place] tel:[phone] [facility] GI Symptoms or Concerns (chief complaint) Gastritis determined by endoscopyDiverticul osis of colon without diverticulitisAlter ed bowel habitsOther gastritis without bleedingHelicobacte r pylori as the cause of diseases classd elswhrLymphocytosis (symptomatic) 4 Jamie Carrero. [address] [facility], [address], [place], [id number] , [place]. tel:[phone] Referring Provider: Referral Self, USE FOR SELF REFERRALS. [facility], [address] [address], [place], [id number], [place] tel:[phone] [facility] No Information 4 Boogie Hernandez. [address] [facility], [address], [place], [id number] , [place]. [phone] Offic/outpt E&m New Mod-hi [facility], [address] [address], [place], [id number], [place] tel:[phone] [facility] GI Symptoms or Concerns (chief complaint) Epigastric abdominal painNauseaRectal bleeding 4 Finn Dhillon. [address] [facility] [address], [address], [place], [id number] , [place]. [phone] Referring Provider: Junie Barnes MD R, [address] [facility] [address], [place], [address]. tel:[phone] [facility], [address] [address], [place], [id number], [place] tel:[phone] [facility] No Information 4 Boogie Hernandez. [address] [facility] [address], [address], [place], [id number] , [place]. [phone] Family History Family Member Type Diagnosis Age [...] Covered alliance party ID Rosamaria staley(s) [facility] [id number] [place] Medical Assistance CI [id number] Social History Type Description Quantity Date Captured [...] the patient twice but she did not shredder picker the phone. I left her a detailed voice message with the recommendations of repeating the course for H. 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 [...] 1 bowel movement a day, type 4 [place] stool chart, but reports feeling of incomplete evacuation all the time.She follows with gynecology for malignant neoplasm of the endometrium ( I do not have records ). she reports that her pourer crane ladle suggested to be seen by Gastroenterology before her next checkup.Past medical history Malignant neoplasm of the endo monitored by Gynecology. Past surgical history: Laparoscopic evaluation for abdominal pain a year ago for possible endometriosis. Cholecystectomy in 2016. Family history: No colorectal cancer. No IBD. 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 No alcohol misuse and no recreational drug [...] minutes during this clinical encounter, mostly with zuaa-qn-[id number] encounter, care coordination, orders, and dictation. Related to Epigastric abdominal pain Assessments Type Assessment Date No Information Patient Care Teams Name Effective Dates (start - stop) Status Members No Information
--- OUTSIDE RECORDS SUMMARY | 2024-05-24 06:36 | XMS_ITS | Continuity of Care Document ---
Author Organization [facility] Address [address] [address] [place] [address] Phone Care Team Providers Care Field Radio Operator Name Role Phone Finn DIAMOND, Alejo [...] Encounter [facility], [address] [address], [place], [id number], [place] tel:[phone] [facility] No Information Finn DIAMOND Alejo. [address] [facility], [address], [place], [id number] , [place]. tel:[phone] [facility], [address] [address], [place], [id number], [place] tel:[phone] [facility] Other specified bacterial intestinal infections 4 Jamie Carrero. [address] [facility], [address], [place], [id number] , [place]. tel: [phone] Referring Provider: Referral Self, USE FOR SELF REFERRALS. Established Level 4 [facility], [address] [address], [place], [id number], [place] tel:[phone] [facility] GI Symptoms or Concerns (chief complaint) H. pylori infection 4 Finn Dhillon. [address] [facility], [address], [place], [id number] , [place]. tel: [phone] Referring Provider: Referral Self, USE FOR SELF REFERRALS. [facility], [address] [address], [place], [id number], [place] tel:[phone] [facility] H. pylori infection 4 Jamie Carrero. [address] [facility], [facility] [address], [place], [id number] , [place]. tel: [phone] [facility], [address] [address], [place], [id number], [place] tel:[phone] [facility] GI Symptoms or Concerns (chief complaint) Gastritis determined by endoscopyDiverticul osis of colon without diverticulitisAlter ed bowel habitsOther gastritis without bleedingHelicobacte r pylori as the cause of diseases classd elswhrLymphocytosis (symptomatic) 4 Jamie Carrero. [address] [facility], [address], [place], [id number] , [place]. tel:[phone] Referring Provider: Referral Self, USE FOR SELF REFERRALS. [facility], [address] [address], [place], [id number], [place] tel:[phone] [facility] No Information 4 Boogie Hernandez. [address] [facility], [address], [place], [id number] , [place]. [phone] Offic/outpt E&m [place] [facility], [address] [address], [place], [id number], [place] tel:[phone] [facility] GI Symptoms or Concerns (chief complaint) Epigastric abdominal painNauseaRectal bleeding 4 Finn Dhillon. [address] [facility] [address], [address], [place], [id number] , [place]. [phone] Referring Provider: Junie Barnes MD R, [address] [facility] [address], [place], [address]. tel:[phone] [facility], [address] [address], [place], [id number], [place] tel:[phone] [facility] No Information 4 Boogie Hernandez. [address] [facility] [address], [address], [place], [id number] , [place]. [phone] Family History Family Member Type Diagnosis Age [...] Registry Payers Payer name Insurance type Covered libertarian ID Rosamaria staley(s) 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 [...] 1 bowel movement a day, type 4 [place] stool chart, but reports feeling of incomplete evacuation all the time.She follows with gynecology for malignant neoplasm of the endometrium ( I do not have records ). 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 Past surgical history: Laparoscopic evaluation for abdominal pain a year ago for possible endometriosis. Cholecystectomy in 2016. Family history: No colorectal cancer. No IBD. 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 No alcohol misuse and no recreational drug [...] minutes during this clinical encounter, mostly with etcu-zh-sjhs encounter, care coordination, orders, and dictation. Related to Epigastric abdominal pain Assessments Type Assessment Date No Information Patient Care Teams Name Effective Dates (start - stop) Status Members No Information
--- OUTSIDE RECORDS SUMMARY | 2025-02-26 11:00 | XMS_ITS | Encounter Summary ---
Author Organization [facility] Address [address] [place] [address] Care Team Providers Care Oil Spot Washer Name Role Phone [place] Diane EDILMA Primary Care Provider [phone] Reason for Visit * Reason Comments Consultation Encounter Details Date Type Department Care Team (Late st Contact Info) Description 02/26/2025 11:00 AM CDT Office Visit [address] [phone] Netta Sandoval[address] [phone] Social History Tobacco Use Types Packs/Day Years Used Date Smoking Tobacco: Never Smokeless Tobacco: Never Alcohol Use Standard Drinks/Week Comments Yes 0 (1 standard drink = 0.6 oz pur e alcohol) occ. Comments No Sex and Gender Information Value Date Recorded Sex Assigned at Female 08/29/2024 11:09 AM PDT Legal Sex Female 11:42 AM PDT Gender Identity Female 08/29/2024 11:09 AM PDT Sexual Orientation Straight 08/29/2024 11 :09 AM PDT COVID-19 Exposure Response Date Recorded In the last 10 days, have yo u been in contact with someone who was confirmed or suspected to have Coronavirus/COVID-19? No / Unsure 02/27/2025 3:01 PM CDT documented as of this encounter Last Filed Vital Signs Vital Sign Reading Time Taken Comments Blood Pressure 128/89 02/26/2025 10:57 AM CDT Pulse 80 02/26/2025 10:57 AM CDT Temperature 36.5 C (97.7 F) 02/26/2025 10:57 AM CDT Respiratory Rate 18 02/26/2025 10:57 AM CDT Oxygen Saturation 98% 02/26/2025 10:57 AM CDT Inhaled Oxygen Concentration - - Weight 99.8 kg (220 lb) 02/26/2025 10:57 AM CDT Height 162.6 cm (5' 4) 02/26/2025 10:57 AM CDT Body Mass Index 37.76 02/26/2025 10:57 AM CDT documented in this encounter Progress Notes * Netta Deweygissell, WATER POLLUTION SCIENTIST - 02/26/2025 11:35 AM CDT Images from the original note were not included. Subjective Myah Kolb is a 34 year old female who presents to clinic for: Chief Complaint Patient presents with ??? Consultation History of Present Illness The patient is a 34-year-old female who presents for a follow-up on elevated blood pressure readings. She experienced an episode of feeling extremely hot during her lunch break, which was accompanied by the appearance of hives. She had consumed a ham and cheese sandwich without avocado or any other known allergens. Following this, she developed a headache, distinct from her usual migraines, described as a sensation of being pricked with needles. Around 3:00 PM, she began to experience sharp epigastric pain, initially attributing it to hunger. However, the pain intensified as she ascended stairs, leading to a sensation of her heart being in her throat. She has a history of heartburn and acid reflux but did not believe these were the cause of her symptoms. She also reported dizziness and a feeling of impending faintness, along with tachycardia. Her headache persisted and eventually radiatedto the back of her head. Upon returning home around 5:00 PM, she found that her blood pressure was elevated, with systolic readings in the 150s and one instance of a reading of 170. She has been feeling weak since then and woke up feeling extremely tired and exhausted, similar to how she felt after waking up from anesthesia following uterine cell biopsies. She also reported a cold sore on her lipthat appeared after these events. She has been under significant stress recently and does not feel well-supported by her family, although she has a few friends she can rely on. She has not sought therapy. She has been taking cetirizine once daily for seasonal allergies and took sumatriptan today for her migraine. She has been on phentermine for 2 months and is no longer taking topiramate. She is currently taking spironolactone 100 mg daily, metformin 1000 mg twice daily, and folic acid. She has a history of a heart murmur, which was discovered when she started taking medication for cancer in 2022. She was referred to [facility] due to swelling and fluid retention, where she was informed that her condition was likely post-COVID inflammation. She also reported foot swelling. PAST SURGICAL HISTORY: Biopsies for uterine cells Review of Systems Pertinent history, problem list, medications, and allergies reviewed Objective Blood pressure 128/89, pulse 80, temperature 97.7 ??F (36.5 ??C), temperature source Forehead, resp. rate 18, height 5' 4 (1.626 m), weight 220 lb (99.8 kg), last menstrual period 02/02/2025, SpO2 98%, not currently . Body mass index is 37.76 kg/m??. Physical Exam Assessment & Plan Elevated blood pressure Her blood pressure readings were elevated during the episode but are within normal range today. Thesymptoms could be attributed to an allergic reaction or extreme stress, leading to urticaria or hives. Her immune system appears to be under significant stress. There is no indication of a stroke or neurological event. Diagnostic plan: A 12-lead EKG will be performed today to ensure her cardiac rhythm is stable. A basic metabolic panel will be ordered to assess her electrolyte and kidney function. Treatment plan: She is advised to continue taking cetirizine once daily for the next few days to manage inflammation. A work note will be provided. The use of phentermine will be discontinued until cardiology clearance is obtained. If she experiences another episode similar to yesterday's, she should seek immediate medical attention at the emergency room. Clinical decision making: Physical exam findings include no murmur, normal airway, and regular rhythm. She is currently on spironolactone 100 mg daily, metformin 1000 mg twice a day, and folic acid. The potential side effects of these medications were discussed. Heart murmur An echocardiogram from 04/24/2023 showed normal left ventricular chamber size, normal right ventricular chamber, no valve disease, and normal ejection fraction. A CT of the chest showed no definite pulmonary embolism and mild atelectasis. Diagnostic plan: If today's EKG results are abnormal, a referral to cardiology will be made. Follow-up: Encounter diagnoses and associated orders: Problem List None Visit Diagnoses Pre-syncope - Primary Relevant Orders BASIC METABOLIC PANEL CALCIUM TOTAL Routine (Completed) UFM ELECTROCARDIOGRAM (EKG) (Completed) Urticaria Stress The following regulatory documentation was addressed in today's visit: Regulatory documentation not addressed. Questions answered, after visit summary reviewed, and patient/guardian verbalizes understanding of plan care. Return in about 3 months (around 05/28/2025) for weight management. Future Appointments Date Time Provider Department Center 04/16/2025 4:00 PM SABret SHAY 1ST CHAIR [facility] 05/07/2025 4:00 PM Imelda Munguia [facility] 06/27/2025 11:00 AM Jeanine Garrett [facility] Verbal consent was obtained for use of Subtextual eXperience (PATRICIA) documented in this encounter Miscellaneous Notes * Diego CHISHOLM - THEA Lizama - 02/26/2025 12:03 PM CDT [address] How to Handle Stress Most of us think of stress as a bad thing. However, you need a little stress to keep you motivated.Stress can help you finish a work deadline or run the last mile of a race. But too much can be bad for your health. Luckily, you can take steps to reduce stress and better cope with the ups and downs of life. Understanding stress You may experience acute stress or chronic stress. How do they differ? Acute stress is short-term stress that goes away quickly. It?s the kind of stress that happens when you drive in heavy traffic or have an argument with someone. Everyone feels acute stress from time to time. Chronic stress, however, lasts longer. It could stem from a major life event, such as a: ? or loss of a loved one ? Divorce ? Job loss ? Move ? Natural disaster, such as a hurricane or tornado ? Medical crisis The effects of stress Stress harms both your mental and physical health. Stressors can affect your life for days, weeks, or even years. To cope, your body pumps out a lot of stress hormones. This may make you feel: ? Angry ? Irritable ? Depressed ? Anxious ? Unable to focus Stress can also cause changes in your body that lead to health problems such as: ? Headaches ? Trouble sleeping ? Upset stomach ? Weight gain or weight loss ? Tense muscles ? High blood pressure ? Heart disease ? Stroke Stress can also impact your immune system. This is your body?s defense against infection and sickness. You may notice you feel unwell more often if you?re stressed. Everyone randy with stress differently. Some may turn to unhealthy habits, such as smoking, overeating, or drinking alcohol. These bad habits intensify the risk factors associated with heart disease.While you can?t avoid all stressors, you can learn to control your response to them. Ways to cope with stress Thankfully, there are things you can do to lower your stress when life throws you a curveball. Try practicing these simple actions throughout your day. Exercise. Being active makes your brain produce feel-good hormones called endorphins. Any exercise,even just brisk walking, helps. If you can, try to workout outdoors and in nature. Studies show that may be even more calming. Eat healthy foods. Stress hormones can make you hungrier. They may make you crave sugar and fat, too. But when you eat a lot of these foods, your body produces visceral fat. That?s a type of fat madedeep inside your belly. Too much of it can raise your risk for developing heart disease and type 2 diabetes. You can still snack, but focus on fruits and vegetables instead. These are rich in nutrients that fuel your body. Research also shows that people who eat these foods report lower levels of stress. Breathe deeply. When you?re stressed, you breathe quickly. When you breathe slower and more deeply it helps slow your nervous system down. Here?s how: ? Take a slow, deep breath in. ? Pause at the top of your inhale for 1 or 2 seconds. ? Exhale slowly and think of the word relax. ? Repeat this 5 to 10 times. Do this whenever and wherever you feel stressed. Text a friend. When you?re under stress, you may want to camp out in your room and be alone. But being social relieves stress. Why? It distracts you. It also helps to have someone to vent to. They can listen and offer support. Get enough sleep. Being overtired can make you feel irritated and overwhelmed. Try going to bed earlier. Turn off electronics well before bedtime. Light from screens makes it harder to fall asleep. Aim for 7 to 9 hours of sleep each night. Watch a funny movie. Like exercise, laughter raises levels of feel-good brain hormones, such as endorphins and serotonin. Even thinking about laughing has been shown to lower stress hormones. Keep a journal. It doesn?t have to be a formal diary. Just jot down your thoughts and feelings whenever they hit you. Try not to think too much about what you write. Just let the words flow onto the paper or your computer screen. No one else will read it. It?s just to make you feel better. There are also plenty of writing prompts that you can use to guide your journaling. Search online for some and see if any fit your specific stressors. When to get help It?s normal to feel stressed when you go through a big life change. But if your stress lasts for more than a couple of weeks, see your doctor. They may be able to help you or refer you to a mental health specialist. Two types of treatment are known to help: Talk therapy. A therapist or licensed mental health counselor can teach you ways to cope better with your stress. Medicines. Your doctor may prescribe you certain medicines to use for a short period of time while you deal with your life stressors. Or they can refer you to a psychiatrist who is trained to treat mental health concerns with medicine. Common medicines for stress include: ? Antidepressants to boost your mood ? Antianxiety medicines Remember, everyone experiences stress. But if you work to manage it, you can move on and find more ramon in your life?s next chapter. If you are thinking of harming yourself or others, call or text [employer] . You will be connected to trained crisis counselors at the [employer] Suicide & Crisis Lifeline . This service is free and available 09/01. Last Reviewed Date: 2024 00:00:00 ?? 5600-4541 The [employer]. All rights reserved. This information is not intended as a substitute for professional medical care. Always follow your healthcare professional's instructions. documented in this encounter Plan of Treatment Upcoming Encounters Date Type Department Care Team (Late st Contact Info) Description 04/16/2025 4:00 PM CDT Office Visit [address] [phone] 05/07/2025 4:00 PM CERT PHARMACY TECH Office Visit [address] [phone] Imelda Munguia [address] [place] [address] 06/27/2025 11:00 AM CERT PHARMACY TECH Office Visit [address] [phone] ShaniaJeanine francis [address] [place] [address] documented as of this encounter Procedures Procedure Name Priority Date/Time Associated Diagnosis Comments BASIC METABOLIC PANEL CALCIUM TOTAL Routine 02/26/2025 12:13 PM CDT Pre-syncope ELECTROCARDIOGRAM (EKG) Routine 02/27/20 12:02 PM CDT Pre-syncope documented in this encounter Results * BASIC METABOLIC PANEL CALCIUM TOTAL Routine (02/26/2025 12:13 PM CDT) GLUCOSE 89 65 - 99 mg/dL 02/27/2025 5:53 AM CDT [facility] UREA NITROGEN (BUN) 8 7 - 25 mg/dL 02/27/2025 5:53 AM CDT [facility] CREATININE 0.85 0.50 - 0.97 mg/dL 02/27/2025 5:53 AM CDT [facility] EGFR 92 > OR = 60 mL/min/1. 73m2 02/27/2025 5:53 AM CDT [facility] BUN/CREATININE RATIO SEE NOTE: 6 - 22 (calc) 02/27/2025 5:53 AM CDT [facility] SODIUM 140 135 - 146 mmol/L 02/27/2025 5:53 AM CDT [facility] POTASSIUM 4.8 3.5 - 5.3 mmol/L 02/27/2025 5:53 AM CDT [facility] CHLORIDE 104 98 - 110 mmol/L 02/27/2025 5:53 AM CDT [facility] CARBON DIOXIDE 27 20 - 32 mmol/L 02/27/2025 5:53 AM CDT [facility] CALCIUM 9.5 8.6 - 10.2 mg/dL 02/27/2025 5:53 AM CDT [facility] Blood Blood / Unknown 02/26/2025 1 2:13 PM CDT 02/27/2025 3:25 AM CDT Narrative [facility] - 02/27/2025 5:53 AM CDT . Fasting reference interval . Not Reported: BUN and Creatinine are within reference range. . [facility] - BLOOD DRAW Final Resul t [facility] [address] [place] [address] [facility] [address] [place] [address] * UF ELECTROCARDIOGRAM (EKG) (02/26/2025 12:02 PM CDT) [facility] Signature RATE 81 60 - 100 bpm [facility] RHYTHM Normal Sinus Rhythm [facility] [place] INTERVAL 150 120 - 200 ms [facility] QRS 82 70 - 100 ms [facility] INTERPRETATION Abnormal (see comments) [facility] Netta [facility] ECG Final Result Performing Organization Address City/[facility]/ZIP Co de Phone Number [facility] [address] [place] [address], documented in this encounter Visit Diagnoses Diagnosis Pre-syncope- Primary Syncope and collapse Urticaria Stress Other psychological or physical stress, not elsewhere classified documented in this encounter Additional Health Concerns Assessment Noted Time PHQ-9 Depression Total Score: 0 12/25/19 25 4:15 PM PDT documented as of this encounter Care Teams Oil Spot Washer Relationship Specialty Start Date End Date Diane Hernandez PAC [address] [place] [phone] PCP - General [facility] [place] 10/08/24 documented as of this encounter
--- OUTSIDE RECORDS SUMMARY | 2025-02-27 15:00 | XMS_ITS | Encounter Summary ---
Author Organization [facility] Address [address] [place] [address] Care Team Providers Care Pot Pusher Name Role Phone [place] k[place] EDILMA Primary Care Provider [phone] Reason for Visit * Reason Comments Dental Restorative Today: 31-O only due to really elevated BP 2 days ago CC: didn't go to the specialist for molar consultation yet, feeling still a bit not well yet after BP values around 180/120 2 days ago, feel OK to be seen today, doesn't want to miss the apptstart with one filling that can be done without LA and see how the visit goesNV: RestorativeSequence/extent of treatment/procedures for each visit depending on pat's priority and DDS time availability for each appointment Encounter Details Date Type Department Care Team (Late st Contact Info) Description 02/27/2025 3:00 PM CDT Office Visit [address] [phone] Jeanine Garrett [address] [place] [phone] Social History Tobacco Use Types Packs/Day Years [...] Sign Reading Time Taken Comments Blood Pressure 131/88 02/27/2025 3:23 PM CDT Pulse 77 02/27/2025 3:23 PM CDT Temperature - - Respiratory Rate - - Oxygen Saturation - - Inhaled Oxygen Concentration - - Weight - - Height - - Body Mass Index - - documented in this encounter Progress Notes * Jeanine Garrett - 02/27/2025 3:25 PM CDT Restorative SUBJECTIVE: Myah Kolb, 34 year old female, presents alone for restorative. Stamper Blocker: No Language: N/A Chief Complaint Patient presents with Dental Restorative Today: 31-O only due to really elevated BP 2 days ago CC: didn't go to the specialist for molar consultation yet, feeling still a bit not well yet after BP values around 180/120 2 days ago, feel OK to be seen today, doesn't want to miss the appt start with one filling that can be done without LA and see how the visit goesNV: Restorative Sequence/extent of treatment/procedures for each visit depending on pat's priority and DDS time availability for each appointment Premed: No OBJECTIVE: RMHx: Yes Vitals: Vitals: 02/27/25 1523 BP: 131/88 Pulse: 77 IOE and xrays reviewed. 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 Patient consented to-requested restorative treatment without Local anesthetic. PLAN: Informed Consent/PARQ (Procedure, Alternatives, Risks, Questions): Patient confirms informed consent using PARQ for today's treatment Dental procedures in this visit D2391 - RESIN-BASED COMPOSITE - ONE SURFACE POSTERIOR 31 O (Completed) [place]-Lite Enhanced as base Service provider: Jeanine Garrett Billing provider: Jeanine Garrett Medical history reviewed. Discussed treatment recommended. Informed pat about benefits, risks and prognosis. Identified with the patient the tooth - 31- that will be treated today and confirmed the treatment indicated. Older resin and caries removal. The caries were not found to be close to the pulp. Aerosol reduction/isolation methods used: CRI; suction/saliva ejector/HVE. The tooth was restored with: [place]-Lite Enhanced Cavity liner Standard etch and ortega technique Etch & ortega:37% Phosphoric Acid Etch Pulpdent Dentin Desensitizer after prep and before ortega Futurabond U single dose used as adhesive Filling material: 3M [employer] Shade: A3 Contour/Faroese: Yes Verified margins, contacts. Occlusion verified and equilibrated to patient comfort. Check retention at recall appointments. Patient satisfied; gave breaks. Explained Risks, Benefits, Alternatives, Prognosis. All questions answered. Patient alert and stable when dismissed. E: Possible temperature sensitivity for a few days/weeks after restorations are placed. Possible sensitivity after the appt today- take OTC pain medication if necessary Check retention at recall appointments. Behavior: Compliant DDS: Dr. Jeanine Garrett LDA: Mony Kraft Referral: No orders of the following type(s) were placed in this encounter: Referral. Rx: No orders of the defined types were placed in this encounter. NV: Restorative Sequence/extent of treatment/procedures for each visit depending on pat's priority and DDS time availability for each appointment OK to overbook? No documented in this encounter Plan of Treatment Upcoming Encounters Date Type Department Care Team (Late st Contact Info) Description 04/16/2025 4:00 PM CDT Office Visit [address] [phone] 05/07/2025 4:00 PM DRAWING CHECKER Office Visit [address] [phone] Ezra Imelda [address] [place] [phone] 06/27/2025 11:00 AM DRAWING CHECKER Office Visit [address] [phone] Jeanine Garrett [address] [place] [phone] documented as of this encounter Procedures Procedure Name Priority Date/Time Associated Diagnosis Comments 31 O RESIN-BASED COMPOSITE - ONE SURFACE POSTERIOR Routine 02/27/2025 3:00 PM CDT Defective dental baptist documented in this encounter Visit Diagnoses Diagnosis Defective dental baptist- Primary Unspecified unsatisfactory baptist of tooth documented in this encounter Additional Health Concerns Assessment Noted Time PHQ-9 Depression Total Score: 0 12/25/19 4:15 PM PDT documented as of this encounter Care Teams Pot Pusher Relationship Specialty Start Date End Date Diane Hernandez PAC [address] [place] [id number] PCP - General [facility] [place] 10/08/24 documented as of this encounter
--- OUTSIDE RECORDS SUMMARY | 2025-03-26 11:40 | XMS_ITS | Encounter Summary ---
Author Organization [facility] Address [address] [place] [address] Care Team Providers Care Capacity Planning Engineer Name Role Phone Diane Hernandez Primary Care Provider [phone] Reason for Visit * Reason Comments Immunization Encounter Details Date Type Department Care Team (Late st Contact Info) Description 03/26/2025 11:40 AM CDT Office Visit [facility] [address] [place] [phone] Vilma Garza [address] [place] [phone] Social History Tobacco Use Types Packs/Day Years [...] suspected to have Coronavirus/COVID-19? No / Unsure 03/26/2025 11:31 AM CDT documented as of this encounter Progress Notes * EDILMA Olmedo - 03/26/2025 1:01 PM CDT I have reviewed the notes, assessments, and/or procedures performed by Vilma Garza, I Concur with their documentation of Myah Kolb. * Vilma Garza - 03/26/2025 11:51 AM CDT [facility] [employer] NO CHARGE VISIT Vilma Garza CMA 03/26/2025 11:51 AM CDT documented in this encounter Plan of Treatment Upcoming Encounters Date Type Department Care Team (Late st Contact Info) Description 04/16/2025 4:00 PM CDT Office Visit [address] [phone] 05/07/2025 4:00 PM CLAIM APPROVER Office Visit [address] [phone] Imelda Munguia [address] [place] [address] 06/27/2025 11:00 AM CLAIM APPROVER Office Visit [address] [phone] ShaniaJeanine francis [address] [place] [phone] documented as of this encounter Visit Diagnoses Diagnosis Need for vaccination- Primary Need for prophylactic vaccination and inoculation against unspecified single disease documented in this encounter Additional Health Concerns Assessment Noted Time PHQ-9 Depression Total Score: 0 12/25/19 4:15 PM PDT documented as of this encounter Care Teams Capacity Planning Engineer Relationship Specialty Start Date End Date Diane Hernandez PAC [address] [place] [phone] PCP - General [facility] 10/08/24 documented as of this encounter
[2025-04-06] VITALS (22 sets, daily range): BP systolic 105–139; BP diastolic 64–84; PULSE 75–97; RESP 20; TEMP 36.4; O2SAT 96–99; BMI 37.6
--- OUTSIDE RECORDS SUMMARY | 2025-04-06 15:31 | XMS_ITS | Clinical Summary ---
Author Organization [facility] Address [address] [place] [address] Care Team Providers Care Rotary Slicing Machine Operator Name Role Phone Diane Hernandez EDILMA Primary Care Provider [phone] Source Comments PLEASE NOTE, if this patient is a minor, it may be UNLAWFUL to discuss sensitive information that is contained in these records (such as FAMILY PLANNING, MENTAL HEALTH or SUBSTANCE ABUSE) with the minor patient's parent or other person without the patient's specific authorization.[facility] Allergies Active Allergy Reactions Criticality Noted Date Comments Adhesive Tapes 02/05/2024 Burned skin Avocado Itching 11/11/2022 Banana Itching 11/11/2022 Omeprazole Hives 08/14/2024 Throat closing Medications folic acid (FOLVITE) 1 mg tabletIndications: Family planning,PCOS (polycystic ovarian syndrome) Take 1 Tablet by mouth once daily 90 Tablet 3 10/24/19 25 Active fluoride, sodium, (DENTAGEL) 1.1 % gelIndications:Car ies,Caries of enamel (incipient) Apply pea size amount of tooth gel onto teeth for two minutes , brush and spit out excess. Do Not Swallow. Do not rinse if you can. Do not drink or eat for 30 minutes afterwards. Keep away from pets and small children under age 6. 56 g 1 11/02/19 25 Active spironolactone (ALDACTONE) 50 mg tabletIndications: PCOS (polycystic ovarian syndrome) Take 1 Tablet by mouth once daily for 7 days, THEN 2 Tablets once daily. 180 Tablet 3 01/04/20 25 026 Active metFORMIN (GLUCOPHAGE) 1,000 mg tabletIndications: PCOS (polycystic ovarian syndrome) Take 1 Tablet by mouth 2 (two) times daily with a meal. 180 Tablet 3 01/04/20 25 Active ondansetron ODT (ZOFRAN-ODT) 4 mg disintegrating tabletIndications: Intractable migraine with status migrainosus, unspecified migraine type Take 1-2 Tablets by mouth 3 (three) times daily as needed for nausea. 20 Tablet 1 02/15/20 25 Active SUMAtriptan succinate (IMITREX) 50 mg tabletIndications: Intractable migraine with status migrainosus, unspecified migraine type 50 to 100 mg as a single dose. If symptoms persist or return, may repeat dose after =2 hours. Maximum dose: 100 mg/dose; 200 mg per 24 hours.. 20 Tablet 1 02/15/20 25 Active valACYclovir (VALTREX) 500 mg tabletIndications: Vulvar lesion Take 1 Tablet by mouth 2 (two) times daily Take for 3 days with first sign of an outbreak. 30 Tablet 3 12/25/19 25 025 Discontinu ed(Duplica te (E-Cancel Not Sent)) valACYclovir (VALTREX) 1 gram tabletIndications: Vulvar lesion Take 1 Tablet by mouth 2 (two) times daily. 20 Tablet 12/26/19 25 025 Discontinu ed(Duplica te (E-Cancel Not Sent)) valACYclovir (VALTREX) 1 gram tabletIndications: Cold sores Take 2 Tablets by mouth every 12 (twelve) hours for 2 doses at first symptoms of cold sore onset. 12 Tablet 1 03/26/20 25 025 Active Problems Problem Noted Date Diagnosed Date Encounter for weight management 01/03/2025 PCOS (polycystic ovarian syndrome) 10/23/2024 Overview (10/23/2024): Central weight gain, hirsutism, hypofertility, hypomenorrhea and elevated fasting insulin Assessment & Plan (10/23/2024 9:36 AM CDT): Reviewed constellation of sx/labs that point to PCOS - recommend treatment in this direction Discussed different paths of PCOS treatment based on fertility plan - she prefers to go in the direction of seeking , avoiding teratogenic medications. Will add on Hgb A1c today Rx metformin on taper schedule Rx Folic Acid Recommended Theo Inositol RTC in November if no menses for provera challenge RTC by the end of the year if no by that time. Information given on probiotics for GI health Endometriosis 10/20/2024 Family planning 10/20/2024 Overview (10/20/2024): Active listening today as she recalls her history Plan fasting labs on Monday for prolactin, TSH, insulin and Hcg Introduced basics of PCOS and endometriosis - will discuss further based on test results. Disussed possibility of Asherman's syndrome as cause of no menses. Will monitor for spontaneous menstruation for up to 3 months - plan return by November for f/u if no menses. Discussed fertility and recommendation of HSG to check for tubal patency in 3-6 months. Will communicate results by MyChart I spent greater than 30 minutes in the planning, care, coordination and documentation of this patients healthcare services today. 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 Culture collected and sent Reviewed transmission and reoccurrence Rx Valtrex 1000mg bid x 10d Reviewed use of 500mg bid x 3 days with re-occurrence. Full STI screen sent Breast pain 10/08/2024 10/08/2024 Hematochezia 10/08/2024 10/08/2024 Abscess of perineum 04/18/2013 10/09/19 25 Encounters Date Type Department Care Team Description 03/26/2025 11:40 AM CDT Office Visit [address] [phone] Vilma Garza 03/26/2025 Travel 02/28/2025 Results Follow-Up [address] [phone] Netta Sandoval FNP 02/27/2025 3:00 PM CDT Office Visit [facility] [address] [place] [phone] Jeanine Garrett 02/27/2025 Travel 02/26/2025 11:00 AM CDT Office Visit [facility] [address] [place] [address] EdnaNetta rootTHEA 02/26/2025 Travel from Last 3 Months Immunizations Immunization Administration Dates Next Due DTAP (Infanrix) 11/20/1995, 3,04/16/1991,1990,1990 Flu, Multi Dose 0.5 ML 04/06/2022 Flu, Preservative Free 03/21/2020 HEP B, PED/ADOL ([id number]-NJKG/RECOMBIVAX-PEDS) 12/02/2013,12/09/1997,07/14/1997,1996 HPV, QUADRIVALENT 12/17/2007,04/19/2007,01/04/20 07 Hep A, Ped/adol, 2 Dose 12/17/2007,01/03/2007 Hep A, adult 12/02/2013 Hib, unspecified 08/21/1992, 1,02/04/1991,1990 INFLUENZA, SEASONAL, INJECTA BLE, PRESERVATIVE FREE 03/26/2025,04/18/2017 INFLUENZA, UNSPECIFIED 03/27/2008 IPV (IPOL) 11/20/1995, 3,04/16/1991,1990,1990 Influenza (FLUAD), Trivalent , Adjuvanted 08/29/2024 MMR (MMR II/Priorix) 11/20/1995,12/25/1991 [place] COVID VACCINE, PURPLE CAP, 12+ 07/21/2020 ,06/30/2020 TDAP 05/09/2016,12/02/2013 Td (adult),2 Lf tetanus toxo id (TDVAX), preservative free 10/22/2002 Varicella (Varivax), Live Vaccine 08/29/2024 Social History Tobacco Use Types Packs/Day Years [...] No / Unsure 03/26/2025 11:31 AM CDT Last Filed Vital Signs Vital Sign Reading Time Taken Comments Blood Pressure 131/88 02/27/2025 3:23 PM CDT Pulse 77 02/27/2025 3:23 PM CDT Temperature 36.5 C (97.7 F) 02/26/2025 10:57 AM CDT Respiratory Rate 18 02/26/2025 10:57 AM CDT Oxygen Saturation 98% 02/26/2025 10:57 AM CDT Inhaled Oxygen Concentration - - Weight 99.8 kg (220 lb) 02/26/2025 10:57 AM CDT Height 162.6 cm (5' 4) 02/26/2025 10:57 AM CDT Body Mass Index 37.76 02/26/2025 10:57 AM CDT Plan of Treatment Upcoming Encounters Date Type Department Care Team (Late st Contact Info) Description 04/16/2025 4:00 PM CDT Office Visit [address] [phone] 05/07/2025 4:00 PM PAINT LABORATORY TECHNICIAN Office Visit [address] [phone] Imelda Munguia [address] [place] [address] 06/27/2025 11:00 AM PAINT LABORATORY TECHNICIAN Office Visit [address] [phone] Jeanine Garrett [address] [address] Health Maintenance Due Date Last Done Comments Anxiety Screening 1990 HPV Screening (self-collect) 1990 HPV Screening 1990 Lipid Screening 1990 Pap + HPV 1990 Relationship Safety Screening/Counseling 2005 Cervical Cancer Screening 10/11/2011 Pap Smear 10/11/2011 Alcohol and Drug Screen 06/19/2024 [id number] ( season) 2025 06/24/2021, 07/21/2020, 06/30/2020 Depression Monitoring 03/26/2025 12/24/2024 Dental BW 11/03/2025 11/01/2024 Dental Examination 11/09/2025 11/07/2024 Dental Perio Charting 11/09/2025 11/07/2024 Dental Prophy 11/09/2025 11/07/2024 Hypertension Screening (#1) 02/27/2026 Tobacco Screening 02/27/2026 02/27/2025 Imm-DTaP/Tdap/Td (8 - Td or Tdap) 05/09/2026 05/09/2016, 12/02/2013, 10/22/2002, Additional history exists Diabetes Screening 02/27/2028 02/26/2025, 10/23/2024 Dental FMX/Pano 11/03/2029 11/01/2024 Imm-HPV Completed 12/17/2007, 06/2006, 01/03/2007 Imm-Hepatitis B Completed 12/02/2013, 11/18, 07/14/1997, Additional history exists HIV Screening Completed 12/24/2024 Hepatitis C Screening Completed 12/24/2024 Imm-Influenza Completed 03/26/2025, 08/17, 04/06/2022, Additional history exists Cervical Ablation/Cold-Knife Conization Discontinued Cervical Cryotherapy Discontinued Colposcopy Discontinued Excision/Leep Discontinued HPV Genotyping Discontinued Vaginal Pap Discontinued Vulvoscopy Discontinued Procedures Procedure Name Priority Date/Time Associated Diagnosis Comments 31 O RESIN-BASED COMPOSITE - ONE SURFACE POSTERIOR Routine 02/27/2025 3:00 PM CDT Defective dental sabianist BASIC METABOLIC PANEL CALCIUM TOTAL Routine 02/26/2025 12:13 PM CDT Pre-syncope ELECTROCARDIOGRAM (EKG) Routine 02/27/20 12:02 PM CDT Pre-syncope HIV 1/2 AG & AB W/RFLX (4TH GEN) Routine 12/24/2024 2:32 PM CDT Encounter for screening and preventative care HEPATITIS C AB W/RFLX HCV RNA, QT, RT PCR Routine 12/24/2024 2:32 PM CDT Encounter for screening and preventative care PERIO CHARTING Routine 11/07/2024 3:00 PM CDT Periodontal disease Encounter for dental examination PROPHYLAXIS - ADULT Routine 11/07/2024 3 :00 PM CDT Periodontal disease Encounter for dental examination COMP ORAL EVALUATION - NEW/ESTABLISHED PATIENT Routine 11/07/2024 3:00 PM CDT Periodontal disease Encounter for dental examination PANORAMIC RADIOGRAPHIC IMAGE Routine 11/01/2024 11:00 AM CDT Caries of enamel (incipient) Defective dental sabianist Caries Encounter for dental examination Asymptomatic periapical periodontitis BITEWINGS - FOUR RADIOGRAPHIC IMAGES Routine 11/01/2024 11:00 AM CDT Caries of enamel (incipient) Defective dental sabianist Caries Encounter for dental examination Asymptomatic periapical periodontitis from Last 3 Months or Most Recently Relevant to Health Maintenance Results * BASIC METABOLIC PANEL CALCIUM TOTAL Routine (02/26/2025 12:13 PM CDT) [facility] GLUCOSE 89 65 - 99 mg/dL 02/27/2025 5:53 AM CDT [facility] [place] UREA NITROGEN (BUN) 8 7 - 25 mg/dL 02/27/2025 5:53 AM CDT [facility] CREATININE 0.85 0.50 - 0.97 mg/dL 02/27/2025 [...] 02/27/2025 5:53 AM CDT [facility] [place] Blood Blood / Unknown 02/26/2025 1 2:13 PM CDT 02/27/2025 3:25 AM CDT Narrative [facility] [place] - 02/27/2025 5:53 AM CDT . Fasting reference interval . Not Reported: BUN and Creatinine are within reference range. . [facility] - BLOOD DRAW Final Resul t [facility] [address] [place] [address] [facility] [address] [place] [address] * UFM ELECTROCARDIOGRAM (EKG) (02/26/2025 12:02 PM CDT) RATE 81 60 - 100 bpm [facility] RHYTHM Normal Sinus Rhythm [facility] INTERVAL 150 120 - 200 ms [facility] QRS 82 70 - 100 ms [facility] INTERPRETATION Abnormal (see comments) [facility] Netta Sandoval [facility] ECG Final Result [facility] [address] [place] [address], * HEPATITIS C AB W/RFLX HCV RNA, QT, RT PCR Routine (12/24/2024 2:32 PM CDT) HEPATITIS C ANTIBODY NON-REACTI VE NON-REACT RADHA 12/25/2024 10:50 AM CDT [facility] Blood Blood / Unknown 12/24/2024 2 :32 PM CDT 12/25/2024 4:33 AM CDT Narrative [facility] [place] - 12/25/2024 10:51 AM CDT . HCV antibody was non-reactive. There is no laboratory evidence of HCV infection. . In most cases, no further action is required. However, if recent HCV exposure is suspected, a test for HCV RNA (test code 22357) is suggested. . For additional information please refer to http://education.[employer]/faq/RSJ56x5 (This link is being provided for informational/ educational purposes only.) . [facility] - BLOOD DRAW Final Result Performing Organization Address [facility] Co de Phone Number [facility] [address] [place] [address] [facility] [address] [place] [address] * HIV 1/2 AG & AB W/RFLX (4TH GEN) Routine (12/24/2024 2:32 PM CDT) [facility] HIV Screen Final SEE NOTE 12/25/2024 10:50 AM CDT [facility] HIV AG/AB, 4TH GEN NON-REACTI VE NON-REACT RADHA 12/25/2024 10:50 AM CDT [facility] Blood Blood / Unknown 12/24/2024 2 :32 PM CDT 12/25/2024 4:33 AM CDT Narrative [facility] - 12/25/2024 10:51 AM CDT HIV Negative . HIV-1 antigen and HIV-1/HIV-2 antibodies were not detected. There is no laboratory evidence of HIV infection. [facility] - BLOOD DRAW Final Result Performing Organization Address [facility]/ZIP Co de Phone Number [facility] [place] [address] [place] [address] [facility] [place] [address] [place] [address] from Last 3 Months or Most Recently Relevant to Health Maintenance Insurance [employer] Member Subscriber Plan / Payer (Ef fective 2024-Present) Name:Myah Garrett Relation to Subscriber:Self Name:Myah Garrett Payer ID:[id number] Group ID:Not on file Type:Indemnity Address: [facility] [address] [place] [address] [facility] [place] Care Teams Rotary Slicing Machine Operator Relationship Specialty Start Date End Date Diane Hernandez PAC [address] [place] [phone] PCP - General FAMILY MEDICINE[place] 10/08/24
--- OUTSIDE RECORDS SUMMARY | 2025-04-06 15:31 | XMS_ITS | Encounter Summary ---
Author Organization [facility] Address [address] [place] [address] Care Team Providers Care Nuclear Auxiliary Operator Name Role Phone Mary Diane EDILMA Primary Care Provider [phone] Encounter Details Date Type Department Care Team (Late st Contact Info) Description 02/28/2025 Results Follow-Up [address] [phone] Netta Sandoval FNP [address] [place] [address] Social History Tobacco Use Types Packs/Day Years [...] AM CDT documented as of this encounter Miscellaneous Notes * Result Encounter Note - THEA Lizama - 02/28/2025 6:13 PM CDT Results negative/normal/of no clinical significance. No changes in plan of care. Result released toMyChart. documented in this encounter Plan of Treatment Upcoming Encounters Date Type Department Care Team (Late st Contact Info) Description 04/16/2025 4:00 PM CDT Office Visit [address] [phone] 05/07/2025 4:00 PM FUR SCRAPER Office Visit [address] [phone] Ezra Imelda [address] [place] [address] 06/27/2025 11:00 AM FUR SCRAPER Office Visit [address] [phone] Jeanine Garrett [address] [place] [address] documented as of this encounter Visit Diagnoses Not on filedocumented in this encounter Additional Health Concerns Assessment Noted Time PHQ-9 Depression Total Score: 0 12/25/19 4:15 PM PDT documented as of this encounter Care Teams Nuclear Auxiliary Operator Relationship Specialty Start Date End Date Diane Hernandez PAC [address] [place] [id number] PCP - General FAMILY MEDICINE, [place] 10/08/24 documented as of this encounter
--- OUTSIDE RECORDS SUMMARY | 2025-04-06 15:31 | XMS_ITS | Encounter Summary ---
Author Organization [facility] Address [address] [place] [address] Care Team Providers Care Plumber Cub Name Role Phone Diane Hernandez EDILMA Primary Care Provider [phone] Encounter Details Date Type Department Care Team (Latest Contact Info) Description 02/26/2025 Travel Social History Tobacco Use Types Packs/Day [...] suspected to have Coronavirus/COVID-19? No / Unsure 02/26/2025 10:51 AM CDT documented as of this encounter Plan of Treatment Upcoming Encounters Date Type Department Care Team (Late st Contact Info) Description 04/16/2025 4:00 PM CDT Office Visit [address] [phone] 05/07/2025 4:00 PM PIECE DYER Office Visit [address] [phone] Imelda Munguia [address] [place] [address] 06/27/2025 11:00 AM PIECE DYER Office Visit [address] [phone] GillesJeanine perez [address] [place] [address] documented as of this encounter Visit Diagnoses Not on filedocumented in this encounter Additional Health Concerns Assessment Noted Time PHQ-9 Depression Total Score: 0 12/25/19 25 4:15 PM PDT documented as of this encounter Care Teams Plumber Cub Relationship Specialty Start Date End Date Diane Hernandez PAC [address] [place] [phone] PCP - General FAMILY MEDICINE, [place] 10/08/24 documented as of this encounter
--- OUTSIDE RECORDS SUMMARY | 2025-04-06 15:31 | XMS_ITS | Encounter Summary ---
Author Organization [facility] Address [address] [place] [address] Care Team Providers Care Jewel Corner Brushing Machine Operator Name Role Phone Diane Hernandez EDILMA Primary Care Provider [phone] Encounter Details Date Type Department Care Team (Latest Contact Info) Description 02/27/2025 Travel Social History Tobacco Use Types Packs/Day [...] PM CDT documented as of this encounter Plan of Treatment Upcoming Encounters Date Type Department Care Team (Late st Contact Info) Description 04/16/2025 4:00 PM CDT Office Visit [address] [phone] 05/07/2025 4:00 PM PODODERMATOLOGIST Office Visit [address] [phone] Imelda Munguia [address] [place] [address] 06/27/2025 11:00 AM PODODERMATOLOGIST Office Visit [address] [phone] GillesJeanine perez [address] [place] [address] documented as of this encounter Visit Diagnoses Not on filedocumented in this encounter Additional Health Concerns Assessment Noted Time PHQ-9 Depression Total Score: 0 12/25/19 25 4:15 PM PDT documented as of this encounter Care Teams Jewel Corner Brushing Machine Operator Relationship Specialty Start Date End Date Diane Hernandez PAC [address] [place] [id number] PCP - General FAMILY MEDICINE, [place] 10/08/24 documented as of this encounter
--- OUTSIDE RECORDS SUMMARY | 2025-04-06 15:31 | XMS_ITS | Encounter Summary ---
Author Organization [facility] Address [address] [place] [address] Care Team Providers Care High Tension Tester Name Role Phone Diane Hernandez EDILMA Primary Care Provider [phone] Encounter Details Date Type Department Care Team (Latest Contact Info) Description 03/26/2025 Travel Social History Tobacco Use Types Packs/Day [...] Description 04/16/2025 4:00 PM CDT Office Visit [address] [phone] 05/07/2025 4:00 PM MOTION PICTURE PRINTER Office Visit [address] [phone] Imelda Munguia [address] [place] [address] 06/27/2025 11:00 AM MOTION PICTURE PRINTER Office Visit [address] [phone] GillesJeanine perez [address] [place] [address] documented as of this encounter Visit Diagnoses Not on filedocumented in this encounter Additional Health Concerns Assessment Noted Time PHQ-9 Depression Total Score: 0 12/25/19 25 4:15 PM PDT documented as of this encounter Care Teams High Tension Tester Relationship Specialty Start Date End Date Diane Hernandez PAC [address] [place] [address] PCP - General FAMILY MEDICINE[place] 10/08/24 documented as of this encounter
--- OUTSIDE RECORDS SUMMARY | 2025-04-06 15:32 | XMS_ITS ---
Author Name Interface, [id number] lity Address [address] [address] [facility] Address [address] [address] Support Name Relationship Address Phone Jose Traylor Mother Unknown Unavailable Bravo ZaidJuiceto Spouse Unknown Unavail able Allergies and Adverse Reactions Medication/Group Name Reaction Severity Date banana 12/01/2023 avocado 12/01/2023 Plan Date Type Value 08/19/2024 APPOINTMENT SURGERY 30 MIN 05/07/2024 APPOINTMENT SURGERY 30 MIN 05/07/2024 APPOINTMENT SURGERY 30 MIN 05/07/2024 APPOINTMENT SURGERY 30 MIN 05/07/2024 APPOINTMENT SURGERY 30 MIN 02/21/2024 APPOINTMENT OUTSIDE TEST 5 M IN 02/21/[address] [facility] PATIENT 30 MIN 02/21/2024 APPOINTMENT TELEHEALTH SVC E ST PATIENT 30 MIN 02/05/2024 APPOINTMENT SURGERY 30 MIN 12/01/2023 APPOINTMENT POST OP 30 MIN 11/17/2023 APPOINTMENT POST OP 30 MIN 11/06/2023 APPOINTMENT POST OP 30 MIN 10/23/2023 APPOINTMENT SURGERY 30 MIN 09/26/2023 APPOINTMENT RECONSULT 30 MIN 02/05/2024 LAB_ORDER Mammogram, scree michael, bilateral breast 02/16/2024 LAB_ORDER Mammogram, diagn ostic, bilateral breast 03/28/2025 LAB_ORDER Pelvic U/S w/tra nsvaginal & abdominal probe Reason for Visit SURGERY 30 MIN Encounters Date Name 09/26/2023 Breast pain 09/26/2023 EIN 09/26/2023 Epigastric pain 09/26/2023 Headache 09/26/[address] ools 09/26/2023 Postoperative nausea and vomiting Immunizations Date Name Route Dose Instructions Refusal Reason Stat us Flu vaccine - Adult Comp leted Other Completed Diagnostic Results Date Type Test Units Lower Limit Upper Limit Result Flag Comments Status Ordered By Specimen Source Lab Address 08/19 [facility] [place], [place] other lab See attache alegre Medications Date Name Route Dose Frequency Instructions Start Date End Date Status Fill Status Indication 03/03 Furosem brittany Oral PO 1.0 tablet 2 tabs daily active 11/30 Probiot ics Oral uro womans probiotic active 03/03 Topiram ate Oral active 11/30 medroxy progest erone acetate 10 MG Oral Tablet [Operations Engineer a] orally 2.0 tablet daily 2023 active EIN 07/27 medroxy progest erone acetate 10 MG Oral Tablet [Operations Engineer a] orally 2.0 tablet daily 2023 active EIN 05/31 medroxy progest erone acetate 10 MG Oral Tablet [Operations Engineer a] orally 2.0 tablet daily 2022 active Problems Diagnosis Status Date of Diagnosis Resolution Date Endometrial adenocarcinoma Active Endometriosis Active EIN Active Possible Active Dyspnea (finding) Active Passage of bloody stools Active Epigastric pain Active Headache Active Postoperative nausea and vomiting Active Breast pain Active Vital Signs Date Type Value 09/26/2023 Respiratory Rate 16.00 09/26/2023 Pain Scale 0.00 09/26/2023 BSA 2.01 09/26/2023 BMI 36.39 09/26/2023 Weight 212.00 09/26/2023 Oxygen Saturation 99.00 09/26/2023 Heart Beat 56.00 09/26/2023 Body Temperature 96.40 09/26/2023 Intravascular Systolic 106 09/26/2023 Intravascular Diastolic 74 09/26/2023 Height 64.00 12/01/2023 Pain Scale 4.00 12/01/2023 Intravascular Systolic 116 12/01/2023 Intravascular Diastolic 78 12/01/2023 BSA 2.04 12/01/2023 BMI 37.97 12/01/2023 Body Temperature 97.60 12/01/2023 Weight 221.20 12/01/2023 Oxygen Saturation 98.00 12/01/2023 Respiratory Rate 16.00 12/01/2023 Heart Beat 84.00 12/01/2023 Height 64.00 Notes Section * CERTIFIED INDOOR ENVIRONMENTALIST Follow-Up - TRANSFER OF CARE TO DR. SINGH <html><head></head><body><div style=text-align:center><span class=clinicalNoteMacroHighlighted id=[id number] macroname =PracticeLetterhead spantype=macro title=#PracticeLetterhead><img geaijz=[id number]" hagtm=[id number]></span>

<strong>GYNECOLOGIC ONCOLOGY FOLLOW-UP VISIT</strong>
</div><div>
<strong>Patient Name:</strong> <span class=clinicalNoteMacroHighlighted id=[id number] macroname=PatientName spantype=macro title=#PatientName>PENG BRAVO</span> <strong>:</strong> <span class=clinicalNoteMacroHighlighted id=[id number] macroname=PatientDateOfBirth spantype=macro title=#PatientDateOfBirth>1990</span>
<strong>Date of Visit:</strong> <span class=clinicalNoteMacroHighlighted id=[id number] macroname=EffectiveDate spantype=macro title=#EffectiveDate>09/26/2023</span>
<strong>Referring Provider:</strong> <span class=clinicalNoteMacroHighlighted id=[id number] macroname=ReferringPhysician spantype=macro title=&quo t;#ReferringPhysician>September KADE Redman</span>
<strong>Attending: </strong> <span class=clinicalNoteMacroHighlighted id=[id number] macroname=AttendingPhysician spantype=macro title=#Attendi ngPhysician>Hortencia Greer (Gynecological/Oncology)</span>
&lt ;span>
<span class=clinicalNoteSectionShowSeparators clinicalNoteSectionVisible id=[id number] internalbreaksection=false originalname=Chief Complaint recognizeconcepts=true spantype=section suppressempty=false>Chief Complaint (Wrapping Machine Helper Oncology):</span></span>
</div><ul> <li>Transfer of care to Dr. 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
<span class=clinicalNoteSectionShowSeparators clinicalNoteSectionVisible id=s [id number] internalbreaksection=false originalname=HPI r ecognizeconcepts=true spantype=section suppressempty=false>History of Present Illness (Wrapping Machine Helper Oncology):</span>
Peng Bravo is a 32 yo daniel enopausal female who presents with history of EIN concerning for FIGO grade 1 endometrioid adenocarcinoma. She has long standing history of AUB and PCOS.

<u><strong>Oncology Treatment Summary</strong></u>:
07/08/2021: Disordered proliferative endometrium
10/25/2022: At least florid CAH with features approaching FIGO grade 1 endometrioid adenocarcinoma
11/15/2022: D&C and IUD placement: fragments of CAH, atropic endometriosis of cervix
11/25/2022: ED visit for vaginal bleeding and abdominal pain, ultrasound consistent with malpositioned IUD, IUD removed.
12/16/2022: significant pelvic/abdominal pain: Diagnostic laparoscopy, hysteroscopy D& C: Final pathology consistent with residual EIN and benign endometrial polyp.
<span>01/19/2023: IUD replaced
02/23/2023: IUD removed due to malpositioning; resumed Megace
04/13/2023: <span> megace was held due to concern for cardiomyopathy (side effects of palpitations/peripheral edema/shortness of breath). </span>endometrial biopsy completed - residual EIN, chronic endometritis likely 2/2 IUD
04/28/2023: <span><span><span>ECHO completed and normal. No PE on CT chest. & lt;/span></span></span>Megace restarted. </span>
05/31/2023:Continued side effects from Megace and Increased pelvic pain and cramping, fever. Patient was then treated for endometritis and switched to Provera.
07/11/2023: D&C: residual EIN but improved in comparison to prior sample. Tolerating Provera well.
09/26/2023: Transfer of care to Dr. Singh. Discussed repeat D&C with pelvic ultrasound under anesthesia givenincreasing discomfort / pelvic pain.
<span><span></span></span>< br><span><span></span></span>
<span><span><span c lass=clinicalNoteSectionShowSeparators clinicalNoteSectionVisible id=[id number] internalbreaksection=false originalname=Genetic Testing recognizeconcepts=true spantype=section suppressempty=false>Gen etic Testing (Wrapping Machine Helper Oncology):</span>
None
<span><span><span&gt ;</span></span></span>
<span><span><span></span>& lt;/span></span></span></span>
<span><span><span><span class=clinicalNoteSectionShowSeparators clinicalNoteSectionVisible id=sectio [id number] internalbreaksection=false originalname=Interval History (Wrapping Machine Helper Oncology) recognizeconcepts=true spantype=section suppressempty=& quot;false>Interval History (Wrapping Machine Helper Oncology)</span></span></span>
Ms. Sukh Bravo is a 32 yo female here as transfer of care to Dr. Singh from Dr. Greer. She is on Provera and has been doing okay. In August, she was off Provera for about a week as had issues with her prescription and drug supply. During that time period, she noted some cramping, vaginal bleeding and intermittent lower pelvic pain/discomfort. She recently had influenza which resulted in coughing and her cough made her pain worse and caused more discomfort. She has not had regular intercourse secondary to pain. She is currently under significant stress having to navigate custody issues with her daughter's biological mother, who resides in [place]. She has had 2 separate episodes of bloody stools and is also concerned about those symptoms.<b r>
<span class=clinicalNoteSectionShowSeparators clinicalNoteSectionVisible" id=[id number] internalbreaksection=false originalname="Review of Systems recognizeconcepts=true spantype=section suppressempty=false>Review of Systems:</span>
A complete 14-point review of systems is negative except as <span>noted </span>in the above history of present ill ness.</span>

<span class=clinicalNoteSectionShowSeparators clinica lNoteSectionVisible id=[id number] internalbreaksection=false&q uot; originalname=Past Medical History recognizeconcepts=true spantype=&quot ;section suppressempty=false>Past Medical History:</span><ol> <li>PCOS</li> <li>AUB</li></ol>
<span class=clinicalNoteSectionShowSeparators clinicalNoteSectionVisible id=[id number] commander internal affairs albreaksection=false originalname=Past Surgical History recognizeconcepts=&q uot;true spantype=section suppressempty=true>Surgical History:</span><ol> <li>Bunion removal</li> <li>Cholecystectomy 2016</li></ol>
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
<span><span class=clinicalNoteSectionShowSeparators clinicalNoteSectionVisible id=[id number] internalbreaksec tion=false originalname=Allergies recognizeconcepts=true spantyp e=section suppressempty=false>Allergies:</span>
<span c lass=clinicalNoteMacroHighlighted id=[id number] macroname= Allergies parameters=ListType:Bulleted,ValueIfNull:NKDA spantype=macro title=#Allergies(ListType:Bulleted,ValueIfNull:NKDA)><ul> <li>avocado</li> <li>banana</li></ul></span>
<span><span class=&qu ot;clinicalNoteSectionShowSeparators clinicalNoteSectionVisible id=[id number] internalbreaksection=false originalname=Medications recognizeconcepts=true spantype=section suppressempty=false>Medications:</span>
<span class=clinicalNoteMacroHighlighted id=[id number] macroname=CurrentMedications parameters=ListType:Bulleted spantype=macro title=#CurrentMedications(ListType:Bulleted)><ul> <li>Furosemide Oral 20 mg tablet 1 tablet PO 2 tabs daily</li> <li>Provera (Medroxyprogesterone Oral) 10 mg tablet 2 tablet orally daily.</li> <li>Topamax (Topiramate Oral)< /li></ul></span></span></span>

<span class=cl inicalNoteSectionShowSeparators clinicalNoteSectionVisible id=[id number]" internalbreaksection=false originalname=Family History recognizeconcepts=true spantype=section suppressempty=false>Family History:</span>
Unknown cancer history

<span class=clinicalNoteSectionShowSeparators clinicalNoteSectionVisible id=[id number] internalbr eaksection=false originalname=Social History recognizeconcepts=true" spantype=section suppressempty=false>Social History:</span>
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
Former cigarette use

<span class=clinicalNoteSectionShowSeparators clinicalNoteSectionVisible id=[id number] internalbreaksection=false originalname=Health Maintenance: recognizeconcepts=true spantype=section suppressempty =false>Health Maintenance:</span>
Pap smear up-to-date

<span class=clinicalNoteSectionShowSeparators clinicalNoteSectionVisible id=&quot ;[id number] internalbreaksection=false originalname=Vital Sig ns recognizeconcepts=true spantype=section suppressempty=false">Vital Signs:</span>
<span class=clinicalNoteMacroHighlighted i d=[id number] macroname=PatientVitalSigns parameters=LookB ackDays:1 spantype=macro title=#PatientVitalSigns(LookBackDays:1)>Blood pressure: 106/74, Pulse: 56, Temperature: 96.4 F, Respirations: 16, O2 sat: 99%, Pain Scale: 0, Height: 64 in, Weight: 212 lb, BSA: 2.01, BMI: 36.39 kg/m2</span>

<span class=clinicalNoteSectionShowSeparators clinicalNoteSectionVisible id=[id number] internalbreaksection=false originalname=Physical Exam re cognizeconcepts=true spantype=section suppressempty=false>Physical Exam (Wrapping Machine Helper Oncology):</span>
General: alert, cooperative, no acute distress<b r>HEENT: normocephalic, trachea midline, no thyromegaly
Cardiac: regular rate, well-perfused
Lungs: no labored breathing on room air
Abdomen: soft, non-distended, non-tender
Extremities: no edema, non-tender
Neurologic Exam: no focal deficits
Psych: appropriate mood and affect
Pelvic: deferred to OR

<span class=clinicalNoteSectionShowSeparators clinicalNoteSectionVisible id=[id number] internalbreaksection=false originalname=Laboratory Data recog nizeconcepts=true spantype=section suppressempty=false>Laboratory Data:</span>
<span class=clinicalNoteMacroHighlighted id=emerson [id number] macroname=RecentLabResultsTable parameters=OptionalFlo wsheetCategory:CBC,Label:CBC spantype=macro title=#RecentLabResultsTable(Opt ionalFlowsheetCategory:CBC,Label:CBC)>CBC<table border=1 style=width:100%> <tbody> <tr> <th align=left>Lab Results</th> <td>06/28/2023</td> <td>04/13/2023</td> <td>02/28/2023</td> <td>11/25/2022</td> <td>11/02/2022</td> <td>11/01/2022</td> </tr> <tr> <th align=left> CBC</th> <td>
</td> <td>
</td> <td>
</td> <td>
</td> <td>
</td> <td>
</td> </tr> <tr> & lt;td> WBC x 10^3/uL</td> <td>
</td> <td>
</td> <td>
</td> <td>
</td> <td>11.3 (H)</td> <td>
</td> </tr> <tr> <td&g t; RBC x 10^6/uL</td> <td>
</td><td>
</td> <td>
</td> <td>
</td> <td>4.81</td> <td>
</td> </tr> <tr> <td> NRBC % /100 wbc</td> <td>
</td> <td>
</td> <td>
</td> <td>
</td> <td>0.0</td> <td>
</td> </tr> <tr> <td> HGB g/dL</td> <td>
</td> <td>
</td> <td>
</td> <td>
</td> <td>14.9</td> <td>
</td> </tr> <tr> <td> HCT %</td> <td>
</td> <td>
</td> <td>
</td> <td>
</td> <td>43.2</td> <td>
</td> </tr> <tr> <td> MCV fL</td> <td>
</td> <td>
</td> <td>
</td> <td>
</td> <td>89.8</td> <td>
</td> </tr> <tr> <td> MCH pg</td> <td>
</td> <td>
</td> <td>
</td> <td>
</td> <td>31.0</td> <td>
</td> </tr> <tr> <td> MCHC g/dL</td> <td>
</td> <td>
</td> <td>
</td> <td>
</td> <td>34.5</td> <td>
</td> </tr> <tr> <td> RDW %</td> <td>
</td> <td>
</td> <td>
</td> <td>
</td> <td>12.70</td> <td>
</td> </tr> <tr> <td> PLT x 10^3/uL</td> <td>
</td> <td>
&lt ;/td> <td>
</td> <td>
</td> <td>257</td><td>
</td> </tr> <tr> <td> MPV fL</td> <td>
</td> <td>
</td> <td>
</td> <td>
</td> <td>10.8</td> <td>
</td> </tr> <tr> <td> Guerita %</td> <td>
</td> <td>
</td> <td>
</td> <td>
</td> <td>63.5</td> <td>
</td> </tr> <tr> <td> LY %</td> <td>
</td> <td>
</td> <td>
</td> <td>
</td> <td>28.0</td> <td>
</td> </tr> <tr> & lt;td> MO %</td> <td>
</td> <td>
</td> <td>
</td> <td>
</td> <td>5.9 (L)</td> <td>
</td> </tr> <tr> <td> EO %</td> <td>
</td> <td>
</td> <td>
</td> <td>
</td> <td>2.0</td> <td>
</td> </tr> <tr> <td> IG %</td> <td>
</td> <td>
</td> <td>
</td> <td>
</td> <td>0.2</td> <td>
</td> </tr> <tr> <td> Guerita # (ANC) x 10^3/uL</td> <td>
</td> <td>
</td> <td>
</td> <td>
</td> <td>7.2 (H)</td> <td>
</td> </tr> <tr> <td> BA %</td> <td>
</td> <td>
</td> <td>
</td> <td>
</td> <td>0.4</td> <td>
</td> </tr> <tr> <td> MO # x 10^3/uL</td> <td>
</td> <td>
</td> <td>
</td> <td>
</td> <td>0.7</td> <td>
</td> </tr> <tr> <td> EO # x 10^3/uL</td> <td>
</td> <td>
</td> <td>
</td> <td>
</td> <td>0.2</td> <td>
</td> </tr> <tr> &lt ;td> BA # x 10^3/uL</td> <td>
</td> <td>
</td> <td>
</td> <td>
</td> <td>0.0</td> <td>
</td> </tr> <tr> <td>&amp ;nbsp; IG # x 10^3/uL</td> <td>
</td> <td>
</td> <td>
</td> <td>
</td> <td>0.02</td> <td>
</td> </tr> <tr> <td> LY # x 10^3/uL</td> <td>
</td> <td>
</td> <td>
</td> <td>
</td> <td>3.2</td> <td>
</td> </tr> </tbody></table></span>
<span class=clinicalNoteMacroHighlighted id=[id number]=RecentLabResultsTable parameters=OptionalFlowsheetCategory:Chemistries,Label:CMP spantype=macro title=#RecentLabResultsTable(OptionalFlowsheetCatego ry:Chemistries,Label:CMP)></span>
<span class=clinicalNoteMacroHighlighted id=[id number] macroname=RecentLabResultsTable par ameters=OptionalFlowsheetCategory:Coags,Label:Coagulation spantype=macro tit le=#RecentLabResultsTable(OptionalFlowsheetCategory:Coags,Label:Coagulation)>< /span>
<span class=clinicalNoteMacroHighlighted id=[id number] macroname=RecentLabResultsTable parameters=OptionalFlowsheetCategory:Tumor Markers spantype=macro title=#RecentLabResultsTable(OptionalFlowsheetCateg ory:Tumor Markers)> </span>

<span class=clinicalNoteSectionShowSeparators clinicalNoteSectionVisible id=[id number] internalbreaksection=false originalname=Imaging recognizeconcepts=true spantype=section suppressempty=true>Imaging:</span>
<strong>Pelvic ultrasound 10/26/2022
Impression:</strong>
Diffusely thickened some but hypervascular endometrium measuring 16 mm. Mildly prominent ovarian volumes bilaterally with multiple ovarian follicles.

<strong>Pelvic ultrasound 11/25/2022:</strong>
Low lying IUD, which appears to be in the cer vix and pushing on the vaginal wall.

<strong>Pelvic ultrasound&am p;nbsp;02/21/2023:</strong>
IUD is present within the endocervical canal
<b r>.
<span class=clinicalNoteSectionShowSeparators clinicalNoteSectionVisible" id=[id number] internalbreaksection=false originalname="Problems: recognizeconcepts=true spantype=section suppressempty=&qu ot;false>Problems:</span>
<span></span><span class=clin icalNoteMacroHighlighted id=[id number] macroname=Problems parameters=ListType:Bulleted spantype=macro title=#Problems(ListType:B ulleted)><ul> <li>Dyspnea (finding)</li> <li>EIN</li> <li>Endometrial adenocarcinoma</li> <li>Endometriosis</li> <li>Passage of bloody stools</li> <li>Possible </li></ul></span>

<span class=clinicalNoteSectionShowSeparators clinicalNoteSectionVisible id=&quo t;[id number] internalbreaksection=false originalname=Assessme nt & Plan recognizeconcepts=true spantype=section suppressempt y=false>Assessment & Plan (Wrapping Machine Helper Oncology):</span>
Peng Bravo is a 32-year-old woman with EIN, currently, on progestin therapy with fertility preservation.

1. EIN, desiring fertility preservation</span>
</div><ul> <li>Transfer of care to Dr. Singh on 09/26/[address] Greer's departure from the practice</li> <li>Tolerating Provera well <ul> <li><span>Intolerance to Megace. </span>
</li> <li><span>Previous IUD use with discomfort/malpositioning leading to removal.</span>
</li> <li><span>Continue to desire fertility sparing management.</span>
</li> </ul> </li> <li><span>Had some progestin therapy treatment breaks (2/2 malpositioned IUD x 2 and inability to tolerate Megace)</span>
</li> <li><span>Last biopsy noted improvement</span>
</li> <li><span>Will plan for D&C with pelvic US under anesthesia secondary to increased / worsening pelvic discomfort / pain</span>
<ul> <li><span>Will schedule for end of September as will be 3 months from last D&C</span>
</li> <li>Aware if detect malignant cells, would require MRI pelvis + CT chest/abd/pelvis</li> <li>Aware if worsening, would need to reconsider hysterectomy</li> <li>Aware would require 2 negative biopsies prior to attempt</li> <li>Discussed that Provera is NOT effective contraception and should use back-up method if engages in intercourse</li> </ul> </li> <li>KELLY referral placed at today's visit</li> <li>All questions answered to her satisfaction at today's visit</li></ul><span>
2. Episodes of bloody stools x 2</span>
<ul> <li>GI referral placed [facility]</li>&lt ;/ul><div><span>

Future surgery will be scheduled for end of September 2023. Treatment planning will depend on these future biopsy results. GI referral & KELLY referrals placed at today's visit.

<em>I spent a totalof 45 minutes of cumulative time in care of this patient, which included >50% of time spent in direct patient care which included patient interview, examination, and treatment counseling. The remainder of the time was spent in medical documentation, review of records, review of any relevant imaging / pathology, and care coordination. Patient is an established [facility] patient, but, is a NEW patient to me secondary to Dr. Greer's departure from the practice.</em>

<span><span>
<span class=clinicalNoteSectionShowSeparators clinicalNoteSectionVisible id=[id number] internalbreaksection=false originalname=Patient Care Management recognizeconcepts=true" spantype=section suppressempty=false>Patient Care needs:</span>
<span class=clinicalNoteMacroHighlighted id=[id number] macroname=DepressionStatus parameters=Label:Depressions Status: ,ValueIfNul l:Not recorded on visit spantype=macro title=#DepressionStatus(Label:Depress ions Status: ,ValueIfNull:Not recorded on visit)>Depressions Status: Was not screened Reason: Patient Refused; Screening Date: 09/26/2023</span>
Psycho- Social PHQ-9 Follow-up Plan (if applicable):
<span><span class=clinicalNoteMacroHighlighted id=[id number] macroname=PatientSmokingStatus parameters=Label:Smoking Status: ,ValueIfNull:Not recorded spantype=macro title=#PatientSm Reginaus(Label:Smoking Status: ,ValueIfNull:Not recorded)>Smoking Status: Smoking Tobacco : Former smoker; Smokeless Tobacco : Never used smokeless tobacco; Vaping : Never vaped</span>

The patient and family/friends if present were apprised of the use of [email or web address] remote documentation service and all parties consented to conducting the visit in this manner.<b r>
Documentation assistance provided by yarelis Otto for Junie Singh MD on 09/26/2023.

I, Junei Singh MD, personally performed the services described in this documentation, and it is both accurate and complete.</span></span></span><span><span></span></span>

<span>

<strong>Junie Singh MD</strong>
<span class=clinica lNoteMacroHighlighted id=[id number] macroname=LocationPhoneNumb er parameters=Label:Phone: spantype=macro title=#LocationPhoneN umber(Label:Phone: )> </span>
<span class=clinica lNoteMacroHighlighted id=[id number] macroname=LocationFaxNumber& quot; parameters=Label:Fax: spantype=macro title=#LocationFaxNumber(L deven:Fax: )> </span>

Copy to: <span class=&quot ;clinicalNoteMacroHighlighted id=[id number] macroname=NoteRecip ients spantype=macro title=#NoteRecipients>September Uziel GUADARRAMA (Refer ring)
FAX (Referring)
Adalberto Todd MD</span></span>
&l t;br>
<span class=clinicalNoteSectionShowSeparators clinicalNoteSectionVisible" id=[id number] internalbreaksection=false originalname="Plan for Pain recognizeconcepts=true spantype=section suppressempty=false>Pain Care Management:</span>
<span><span class=clinicalNoteMacroHighlighted id=[id number] macroname=PatientPainScale parameters=Label:Pain Scale: ,LookBackDays:0,ValueIfNull:Not recorded on visit" spantype=macro title=#PatientPainScale(Label:Pain Scale: ,LookBackDays:0,ValueIfNull:Not recorded on visit)>Pain Scale: 0</span></span></span></div&g t;

<div><span class=eSignSignature>Electronically signedby Junie Singh MD 09/26/2023 19:32 CDT</span></div></body></html>
--- OUTSIDE RECORDS SUMMARY | 2025-04-06 15:32 | XMS_ITS | Clinical Summary ---
Author Organization [facility] Address [address] [place] [address] Care Team Providers Care Thinner Sprayer Name Role Phone Adalberto Todd MD Primary Care Provider Allergies Active Allergy Reactions Criticality Noted Date Comments Adhesive Tape 02/05/2024 Burned skin Avocado Itching 11/11/2022 Banana Itching 11/11/2022 Omeprazole Hives 08/14/2024 Throat closing Medications Fexofenadine HCl (YOHANA PO) Take 1 tablet by mouth daily Active furosemide (LASIX) 20 MG tablet Take 20 mg by mouth daily Active topiramate (TOPAMAX) 50 MG tablet Take 50 mg by mouth 2 times daily Active bismuth subsalicylate (PEPTO BISMOL) 262 MG/15ML suspension Take 15 mLs by mouth every 6 hours as needed for indigestion Active SUMAtriptan (IMITREX) 50 MG tablet Take 50 mg by mouth at onset of headache for migraine. Active cyclobenzaprine (FLEXERIL) 10 MG tabletIndications:E IN (endometrial intraepithelial neoplasia) Take 1 tablet (10 mg) by mouth 3 times daily as needed for muscle spasms. 15 tablet 08/20/19 25 Active Active Problems Problem Noted Date Diagnosed Date EIN (endometrial intraepithelial neoplasia) 11/2023 Perineal abscess 04/18/2013 Resolved Problems Problem Noted Date Diagnosed Date Resolved Date Endometrial cancer 10/23/2023 Family History Medical History Relation Comments Cancer [...] School Help Needed Not on file 09/25 Interpersonal Safety Answer Date Record ed Do you feel physically and e motionally safe where you currently live? Yes 08/19/2024 Within the past 12 months, h ave you been hit, slapped, kicked or otherwise physically hurt by someone? No 08/19/2024 Within the past 12 months, h ave you been humiliated or emotionally abused in other ways by your partner or ex-partner? No 08/19/2024 Comments No Sex and Gender Information Value Date Recorded Sex Assigned at Not on file Legal Sex Female 4:12 AM SCROLL ASSEMBLER Gender Identity Not on file Sexual Orientation Not on file Last Filed Vital Signs Vital Sign Reading Time Taken Comments Blood Pressure 134/87 08/19/2024 9:57 AM SCROLL ASSEMBLER Pulse 70 08/19/2024 9:34 AM SCROLL ASSEMBLER Temperature 36.2 C (97.2 F) 08/19/2024 9:57 AM SCROLL ASSEMBLER Respiratory Rate 12 08/19/2024 9:57 AM SCROLL ASSEMBLER Oxygen Saturation 100% 08/19/2024 9:57 AM SCROLL ASSEMBLER Inhaled Oxygen Concentration - - Weight 108.6 kg (239 lb 8 oz) 08/19/2024 5:56 AM SCROLL ASSEMBLER Height 162.6 cm (5' 4) 08/19/2024 5:56 AM SCROLL ASSEMBLER Body Mass Index 41.11 08/19/2024 5:56 AM SCROLL ASSEMBLER Plan of Treatment Health Maintenance Due Date Last Done Comments ADVANCE CARE PLANNING 1990 ANNUAL REVIEW OF HM ORDERS 1990 YEARLY PREVENTIVE VISIT 1993 HIV SCREENING 2005 HEPATITIS C SCREENING 2008 PHQ-2 (once per calendar year) 2024 COVID-19 VACCINE ( season) 2025 07/21/2020, 06/30/2020 INFLUENZA VACCINE (#1) 2025 , 04/18/2017, 03/27/2008 PAP 10/25/2025 10/25/2022 DTAP/TDAP/TD VACCINE (8 - Td or Tdap) 05/09/2026 05/09/2016, 12/02/2013, 10/22/2002, Additional history exists ZOSTER VACCINE (1 of 2) 2040 HPV VACCINE Completed 12/17/2007, 06/2006, 01/03/2007 HEPATITIS B VACCINE Completed 12/02/2013, 12/09/1997, 07/14/1997, Additional history exists MENINGITIS VACCINE Aged Out No longer eligible based on patient's age to complete this topic PNEUMOCOCCAL VACCINE: PEDIATRICS (0 to 5 YEARS) AND AT-RISK PATIENTS (6 to 49 YEARS) Aged Out No longer eligible based on patient's age to complete this topic Insurance * Guarantor: Myah Garrett Account Type Relation to Patient Date of Phone Billing Address Personal/Family Self 1990 [address] [id number] [facility] [facility] Care Teams Thinner Sprayer Relationship Specialty Start Date End Date Adalberto Todd MD [facility] [address] [place] [address] PCP - General Emergency Medicine 08/19/24
--- OUTSIDE RECORDS SUMMARY | 2025-04-06 15:32 | XMS_ITS ---
Author Name Interface, [id number] lity Address [address] [place] [id number] [facility] Address [address] [place] [id number] Support Name Relationship Address Phone Jose Traylor Mother Unknown Unavailable Edmund Sparks Spouse Unknown Unavail able Allergies and Adverse Reactions Plan Reason for Visit Encounters Diagnostic Results Medications Problems Vital Signs Notes Section
--- OUTSIDE RECORDS SUMMARY | 2025-04-06 15:32 | XMS_ITS | Clinical Summary ---
Author Organization [facility] Address [address] [place] [address] Care Team Providers Care Instructional Aide Name Role Phone Pcp, No Unavailable Unavailable Adalberto Todd MD Primary Care Provider [phone] Allergies Active Allergy Reactions Criticality Noted Date Comments Avocado Itching 11/11/2022 Banana Itching 11/11/2022 Medications topiramate (TOPAMAX) 50 mg tablet Take by mouth two times daily. 3 Active medroxyPROGESTERone (Provera) 10 mg tablet Take 2 Tablets by mouth once daily. 3 Active furosemide (LASIX) 20 mg tablet Take 20 mg by mouth every morning. Active SUMAtriptan (Imitrex) 50 mg tablet Take 50 mg by mouth once daily if needed for Migraine. Give at minimum 2hrs apart. Max Dose: 200mg per 24hrs. Active oxyCODONE (ROXICODONE) 5 mg immediate release tabletIndications:EI N (endometrial intraepithelial neoplasia) Take 1 Tablet (5 mg) by mouth every 4 hours if needed for Pain. 5 Tablet 05/07/2024 3:47 PM SALES ASSOCIATE KEY HOLDER 4 Active methocarbamoL 500 mg tabletIndications:EI N (endometrial intraepithelial neoplasia) Take 1 Tablet (500 mg) by mouth four times daily. 20 Tablet 05/07/2024 3:47 PM SALES ASSOCIATE KEY HOLDER 4 Active ondansetron (ZOFRAN ODT) 4 mg disintegrating tabletIndications:Na usea Place 1 Tablet (4 mg) on the tongue every 8 hours if needed for Nausea/Vomi ting. 12 Tablet 4 Active Active Problems Problem Noted Date Diagnosed Date EIN (endometrial intraepithelial neoplasia) 04/19 Borderline personality disorder 07/20/2017 Chronic low back pain 07/20/2017 Moderate episode of recurrent major depressive d isorder 07/20/2017 Obesity with body mass index 30 or greater 07/20 Other specified abnormal uterine and vaginal ble eding 07/20/2017 Abscess of perineum 04/18/2013 Immunizations Immunization Administration Dates Next Due COVID-19 vaccine ([employer] 30mcg/0.3mL) PF, MDV 07/21/2020,06/30/2020 DTaP 11/20/1995, 3,04/16/1991,1990,1990 Hepatitis A (Adult) [...] and Fami ly Not on file 08/04/2023 Interpersonal Safety Answer Date Record ed Are you being hit, kicked, p ushed or yelled at (see row info)? No 05/24/2024 Interpersonal Safety Abuse 12 - 18 Not on file 05/24/2024 Interpersonal Safety Ambulatory Vulnerability No t on file 05/24/2024 Comments No Sex and Gender Information Value Date Recorded Sex Assigned at Not on file Legal Sex Female 5:27 AM SALES ASSOCIATE KEY HOLDER Gender Identity Not on file Sexual Orientation Not on file Occupation Industry Job Start Date Job End Date Not on file Not on file Not on file Not on file Obstetrics History Last Filed Vital Signs Vital Sign Reading Time Taken Comments Blood Pressure 149/84 05/24/2024 12:42 PM SALES ASSOCIATE KEY HOLDER Pulse 85 05/24/2024 12:42 PM SALES ASSOCIATE KEY HOLDER Temperature 36.9 C (98.4 F) 05/24/2024 12:42 PM SALES ASSOCIATE KEY HOLDER Respiratory Rate 18 05/24/2024 12:4 2 PM SALES ASSOCIATE KEY HOLDER Oxygen Saturation 96% 05/24/2024 12: 42 PM SALES ASSOCIATE KEY HOLDER Inhaled Oxygen Concentration - - Weight 107.7 kg (237 lb 6.4 oz) 024 12:47 PM SALES ASSOCIATE KEY HOLDER Height 162.6 cm (5' 4) 05/24/2024 12:4 7 PM SALES ASSOCIATE KEY HOLDER Body Mass Index 40.75 05/24/2024 12:47 PM SALES ASSOCIATE KEY HOLDER Plan of Treatment Health Maintenance Due Date Last Done Comments HIV for age 15-65 2005 Hepatitis C screening for age 18-79 2008 Depression screening for age 12+ 05/23/2017 05/23/2016, 12/22/2015 BMI (ht and wt on same day) for age 18+ 08/29/2017 08/29/2016, 12/22/2015, 09/10/2015 COVID-19 vaccine series ( season) 2025 07/21/2020, 06/30/2020 Influenza Vaccine (#1) 2025 , 04/18/2017, 03/27/2008 Pap test for age 21-65 10/25/2025 3, 06/04/2019, 01/04/2018, Additional history exists Tetanus booster 05/09/2026 05/09/2016, 11/17, 10/22/2002 RSV vaccine for adults or (1 - 1-dose 75+ series) 2065 HPV series for age 9-45 Completed 12/17/19 08, 04/19/2007, 01/03/2007 Hepatitis B series for 19+ Completed 12/02, 12/09/1997, 07/14/1997, Additional history exists Pneumococcal series for age 6-49 Aged Out No longer eligible based on patient's age to complete this topic Medical Devices Implanted Type Area Commissions Specialist Device Identifier Shelf Expiration Date Model / Serial / Lot Sys Intrauterine Mirena - [id number] Implanted:Qty: 1 on 11/15/2022 by Hortencia Greer MD at [facility] N/A: Uterus [employer] 11/16/2024 [id number] / [id number] / [id number] Procedures Procedure Name Priority Date/Time Associated Diagnosis Comments HPV HIGH RISK Routine 10/25/2022 8:55 AM CDT from Last 3 Months or Most Recently Relevant to Health Maintenance Results * HPV HIGH RISK (10/25/2022 8:55 AM CDT) TYPE 16 Negative Negative 11/02/2022 9:38 AM CDT [facility] TYPE 18 Negative Negative 11/02/2022 9:38 AM CDT [facility] OTHER HIGH RISK TYPES Negative Negative 11/02/2022 9:38 AM CDT [facility] Other (Cervical) Client Collect / Unknown 10/25/2022 8:55 AM CDT 10/29/2022 11:[address] [facility] - 11/02/2022 9:38 AM CDT HPV types 16, 18, 31, 33, 35, 39, 45, 51, 52, 56, 58, 59, 66 and 68 DNA were undetectable or below the pre-set threshold. Methodology: Jer Julianne 4800 HPV Test september Uziel [employer]BARRAN [employer] Edited Res ult - Final [facility] [address] [place] [address], [place] from Last 3 Months or Most Recently Relevant to Health Maintenance Insurance [facility] Advance Directives * Full Code (Latest Code Status on File) Date Activated Date Inactivated Comments 05/07/2024 9:48 AM 05/07/2024 6:16 PM Question Answer Comments Code Status Discussion: Unable to Assess Preferences, Provider to review later * Full Code Date Activated Date Inactivated Comments 07/11/2023 5:53 AM 07/11/2023 12:05 PM Question Answer Comments Code Status Discussion: Unable to Assess Preferences, Provider to review later * Full Code Date Activated Date Inactivated Comments 12/16/2022 5:47 AM 12/16/2022 12:54 PM Question Answer Comments Code Status Discussion: Unable to Assess Preferences, Provider to review later Care Teams Instructional Aide Relationship Specialty Start Date End Date Adalberto Todd MD [address] [place] [id number] PCP - General Internal Medicine 04/21/23 Pcp, No . 11/08/22
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
--- OUTSIDE RECORDS SUMMARY | 2025-04-06 15:32 | XMS_ITS ---
Author Name Interface, [id number] lity Address [address] [address] [facility] Address [address] [address] Support Name Relationship Address Phone Jose Traylor Mother Unknown Unavailable Kennedi Mar Edmund Spouse Unknown Unavail able Allergies and Adverse [...] 30 MIN 09/26/2023 APPOINTMENT RECONSULT 30 MIN 07/27/2023 APPOINTMENT POST OP 30 MIN 07/27/2023 APPOINTMENT POST OP 30 MIN 02/05/2024 LAB_ORDER Mammogram, scree michael, bilateral breast 02/16/2024 LAB_ORDER Mammogram, diagn ostic, bilateral breast 03/28/2025 LAB_ORDER Pelvic U/S w/tra nsvaginal & abdominal probe Reason for Visit SURGERY 30 MIN Encounters Date Name 07/27/2023 Breast pain 07/27/2023 EIN 07/27/2023 Epigastric pain 07/27/2023 Headache 07/27/[address] ools 07/27/2023 Postoperative nausea and vomiting Immunizations Date Name Route Dose Instructions Refusal Reason Stat us Flu vaccine - Adult Comp leted Other Completed Diagnostic Results Date Type Test Units Lower Limit Upper Limit Result Flag Comments Status Ordered By Specimen Source Lab Address 08/19 Mis 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 Medications Date Name Route Dose Frequency Instructions Start Date End Date Status Fill Status Indication 03/03 Furosem brittany Oral PO 1.0 tablet 2 tabs daily active 11/30 Probiot ics Oral uro womans probiotic active 03/03 Topiram ate Oral active 11/30 medroxy progest erone acetate 10 MG Oral Tablet [Orthopedic Surgeon a] orally 2.0 tablet daily 2023 active EIN 07/27 medroxy progest erone acetate 10 MG Oral Tablet [Orthopedic Surgeon a] orally 2.0 tablet daily 2023 active EIN 05/31 medroxy progest erone acetate 10 MG Oral Tablet [Orthopedic Surgeon a] orally 2.0 tablet daily 2022 active Problems Diagnosis Status Date of Diagnosis Resolution Date Endometrial adenocarcinoma Active Endometriosis Active EIN Active Possible Active Dyspnea (finding) Active Passage of bloody stools Active Epigastric pain Active Headache Active Postoperative nausea and vomiting Active Breast pain Active Vital Signs Date Type Value 07/27/2023 Oxygen Saturation 98.00 07/27/2023 Respiratory Rate 18.00 07/27/2023 Heart Beat 80.00 07/27/2023 Body Temperature 98.60 07/27/2023 BSA 1.99 07/27/2023 Pain Scale 8.00 07/27/2023 Weight 209.00 07/27/2023 Height 64.00 07/27/2023 BMI 35.87 07/27/2023 Intravascular Systolic 140 07/27/2023 Intravascular Diastolic 80 09/26/2023 BMI 36.39 09/26/2023 Height 64.00 09/26/2023 Pain Scale 0.00 09/26/2023 Respiratory Rate 16.00 09/26/2023 Intravascular Systolic 106 09/26/2023 Intravascular Diastolic 74 09/26/2023 BSA 2.01 09/26/2023 Weight 212.00 09/26/2023 Oxygen Saturation 99.00 09/26/2023 Heart Beat 56.00 09/26/2023 Body Temperature 96.40 12/01/2023 Pain Scale 4.00 12/01/2023 Heart Beat 84.00 12/01/2023 Respiratory Rate 16.00 12/01/2023 Oxygen Saturation 98.00 12/01/2023 Body Temperature 97.60 12/01/2023 BSA 2.04 12/01/2023 BMI 37.97 12/01/2023 Height 64.00 12/01/2023 Weight 221.20 12/01/2023 Intravascular Systolic 116 12/01/2023 Intravascular Diastolic 78 Notes Section * CERTIFIED ADAPTIVE PHYSICAL EDUCATOR Follow-Up <html><head></head><body><div style=text-align:center><span class=clinicalNoteMacroHighlighted id=[id number] macroname= PracticeLetterhead spantype=macro title=#PracticeLetterhead><img wzumhz=314 [email or web address]" duxgu=295></span>

<strong>GYNECOLOGIC ONCOLOGY FOLLOW-UP VISIT</strong>
</div><div>
<strong>Patient Name:</strong> <span class=clinicalNoteMacroHighlighted id=[id number] macroname=PatientName spantype=macro title=#PatientName>MAGDY ISREAL BRAVO</span> <strong>:</strong> <span class=clinicalNoteMacroHighlighted id=[id number] macroname=PatientDateOfBirth spantype=macro title=#PatientDateOfBirth>1990</span>
<strong>Date of Visit:</strong> <span class=clinicalNoteMacroHighlighted id=[id number] macroname=EffectiveDate spantype=macro title=#EffectiveDate>07/27/2023</span>
<strong>Referring Provider:</strong> <span class=clinicalNoteMacroHighlighted id=[id number] macroname=ReferringPhysician spantype=macro title=&quot ;#ReferringPhysician>September KADE Redman</span>
<strong>Attending:& lt;/strong> <span class=clinicalNoteMacroHighlighted id=[id number] macroname=AttendingPhysician spantype=macro title=#AttendingP hysician>Hortencia Greer (Gynecological/Oncology)</span>
<sp an>
<span class=clinicalNoteSectionShowSeparators clinicalNoteSectionVisible" id=[id number] internalbreaksection=false originalname="Chief Complaint recognizeconcepts=true spantype=section suppressempty=false>Chief Complaint (Supervisor Refining Oncology):</span>
follow up
<span class=clinicalNoteSectionShowSeparators clinicalNoteSectionVisible id=section [id number] internalbreaksection=false originalname=HPI recogniz econcepts=true spantype=section suppressempty=false>History of Present Illness (Supervisor Refining Oncology):</span>
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
She has long standing history of AUB and PCOS.

07/08/2021: Disordered proliferative endometrium
10/25/2022: At least [...]
04/13/2023: <span> megace was held due to concernfor cardiomyopathy (side effects of palpitations/peripheral edema/shortness of breath). </span>endometrial biopsy completed -residual EIN, chronic endometritis likely 2/2 IUD
04/28/2023: <span><span><span>ECHO completed and normal. No PE on CT chest. </span></span></span>Megace restarted. </span>
05/31/2023: Continued side effects from Megace and Increased pelvic pain and cramping, fever. Patient was then treated for endometritis and switched to Provera.
07/11/2023: D&C: residual EIN but improved in comparison to prior sample. Tolerating Provera well.
< span><span></span></span>
<span><span><span class=&quot ;clinicalNoteSectionShowSeparators clinicalNoteSectionVisible id=[id number] internalbreaksection=false originalname=Genetic Testing recognizeconcepts=true spantype=section suppressempty=false>Genetic Testing (Supervisor Refining Oncology):</span>
None
<span><span><span></span ></span></span></span></span>
<span><span><span><span class=clinicalNoteSectionShowSeparators clinicalNoteSectionVisible id=s [id number] internalbreaksection=false originalname=Interval His tory (Supervisor Refining Oncology) recognizeconcepts=true spantype=section suppressem pty=false>Interval History (Supervisor Refining Oncology)</span></span></span>
Patient had improvement in cramping pain and bleeding. She reports having occasional spotting,this is manageable.
She is currently under significant stress having tonavigate custody issues with her daughter's biological mother. Her peripheral edema has resolved. She denies worsening shortness of breath.

<span class=clinicalNoteSectionShowSeparators clinicalNoteSectionVisible id=[id number]" internalbreaksection=false originalname=Review of Systems recognizeconcept s=true spantype=section suppressempty=false>Review of Systems:</span>
A complete 14-point review of systems is negative except as <span>note d </span>in the above history of present illness.</span>

<span class=clinicalNoteSectionShowSeparators clinicalNoteSectionVisible id=tico [id number] internalbreaksection=false originalname=Past Medical Hist ory recognizeconcepts=true spantype=section suppressempty=false">Past Medical History:</span>
PCOS
AUB
<span class=&quot ;clinicalNoteSectionShowSeparators clinicalNoteSectionVisible id=[id number] internalbreaksection=false originalname=Past Surgical History recognizeconcepts=true spantype=section suppressempty=true>Surgical History:</span>
Bunion removal
Cholecystectomy 2015
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
G0
PCOS
Last Pap 10/25/2022 NILM HPV negative,, NILM in
No history of abnormal Pap smears

<span><span class=clinicalNoteSectionShowSeparators clinicalNoteSectionVisible id=[id number] internalbreaksection=false originalname=Allergies recognizeconcepts=true spantype=section suppressempty=false>Allergies:</span>
<span class=clinicalNoteMacroHighlighted id=[id number] macroname=Allergies parameters=ListType:Bulleted,ValueIfNull:NKDA spantype=macro title=#Allergies(ListType:Bulleted,ValueIfNull:NKDA)><ul> <li>avocado</li> <li>banana</li></ul></span>
<span><span class=clinicalNoteSectionShowSeparators clinicalNoteSectionVisible id=[id number] internalbreaksection=false originalname=Medications recognizeconcepts=true spantype=section suppressempty=false>Medications:</span>
<span class=clinicalNoteMacrINighbuchanan county health centered id=[id number] macronam e=CurrentMedications parameters=ListType:Bulleted spantype=macro title=#CurrentMedications(ListType:Bulleted)><ul> <li>Megestrol Oral 40mg tablet 2 tablet orally 2 times per day.</li> <li>Flagyl (Metronidazole Oral) 500 mg tablet 1 tablet orally every 12 hours.</li> <li>Doxycycline Monohydrate Oral 100 mg capsule 1 capsule orally 2 times per day.</li> <li>Furosemide Oral 20 mg tablet 1 tablet PO 2 tabs daily</li> <li>Topamax (Topiramate Oral)</li></ul></span></span></span>

<span class=clinicalNoteSectionShowSeparators clinicalNoteSectionVisible id=[id number] internalbreaksection=false" originalname=Family History recognizeconcepts=true spantype=section suppressempty=false>Family History:</span>
Unknown cancer history
<span class=clinicalNoteSectionShowSeparators clinicalNoteSectionVisible" id=[id number] internalbreaksection=false originalname=&quot ;Social History recognizeconcepts=true spantype=section suppressempty= false>Social History:</span>
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
Former cigarette use
<span class=clinicalNoteSectionShowS eparators clinicalNoteSectionVisible id=[id number] internalbreaksection=false originalname=Health Maintenance: recognizeconcepts=true" spantype=section suppressempty=false>Health Maintenance:</span>
Pap smear up-to-date
<span class=clinicalNoteSectionShowSeparators clinicalNoteSectionVisible id=[id number] internalbreaksection=false" originalname=Vital Signs recognizeconcepts=true spantype=section suppressempty=false>Vital Signs:</span>
<span class=cl inicalNoteMacroHighlighted id=[id number] macroname=PatientVital Signs parameters=LookBackDays:1 spantype=macro title=#PatientJaye Garcia(LookBackDays:1)>Blood pressure: 140/80, R arm, Regular, Pulse: 80, Temperature: 98.6 F, Respirations: 18, O2 sat: 98%, Room Air, Pain Scale: 8, Height: 64 in, Weight: 209 lb, BSA: 1.99, BMI: 35.87 kg/m2</span>

<span class=clinicalNoteSectionShowSeparators clinicalNoteSectionVisible id=[id number] internalbreaksection=false originalname=Physical Exam recognizeconcepts=true spantype=section suppressempty=false>Physical Exam (Supervisor Refining Oncology):</span>
General: NAD
HEENT: wnl
Lungs: No respiratory distress
Cardiac: Normal pulse
Extremities: wnl
Pelvic: deferred
Neurologic Exam:no focal deficits
<span class=clinicalNoteSectionShowSeparators clinicalNoteSectio nVisible id=[id number] internalbreaksection=false origin alname=Laboratory Data recognizeconcepts=true spantype=section s uppressempty=false>Laboratory Data:</span>
<span class=clinic alNoteMacroHighlighted id=[id number] macroname=RecentLabResultsT able parameters=OptionalFlowsheetCategory:CBC,Label:CBC spantype=macro title=#RecentLabResultsTable(OptionalFlowsheetCategory:CBC,Label:CBC)>CBC<tabl e border=1 style=width:100%> <tbody> <tr> <th align=left>Lab Results</th> <td>06/28/2023</td> <td>04/13/2023</td> <td>02/28/2023</td> <td>11/25/2022</td> <td>11/02/2022</td> <td>11/01/2022</td> </tr> <tr> <th align=left> CBC</th> <td>
</td> <td>
</td> <td>
</td> <td>
</td> <td>
</td> <td>
</td> </tr> <tr> <td> WBC x 10^3/uL</td> <td>
</td> <td>
</td> <td>
</td> <td>
</td> <td>11.3 (H)</td> <td>
</td> </tr> <tr> <td> RBC x 10^6/uL</td> <td>
</td> <td>
</td> <td>
</td> <td>
</td> <td>4.81</td> <td>
</td> </tr> <tr> <td> NRBC % /100 wbc</td> <td>
</td> <td>
</td> <td>
</td> <td>
</td> <td>0.0</td> <td>
</td> </tr> <tr> <td> HGB g/dL</td> <td>
</td> <td>
</td> <td>
</td> <td>
</td> <td>14.9</td> <td>
</td> </tr> <tr> <td > HCT %</td> <td>
</td> <td>
</td> <td>
</td> <td>
</td> <td>43.2</td> <td>
</td> </tr> <tr> <td> & nbsp; MCV fL</td> <td>
</td> <td>
</td> <td>
</td> <td>
</td> <td>89.8</td> <td>
</td> </tr> <tr> <td> &am p;nbsp;MCH pg</td> <td>
</td> <td>
</td> <td>
</td> <td>
</td> <td>31.0</td> <td>
</td> </tr> <tr> <td> MCHC g/dL</td> <td>
</td> <td>
</td> <td>
</td> <td>
</td> <td>34.5</td> <td>
</td> </tr> <tr> <td> RDW %</td> <td>
</td> <td>
</td> <td>
</td> <td>
</td> <td>12.70</td> <td>
</td> </tr> <tr> <td> PLT x 10^3/uL</td> <td>
</td> <td>
</td> <td>
</td> <td>
</td> <td>257</td> <td>
</td> </tr> <tr> <td > MPV fL</td> <td>
</td> <td>
</td> <td>
</td> <td>
</td> <td>10.8</td> <td>
</td> </tr> <tr> <td> &amp ;nbsp; Guerita %</td> <td>
</td> <td>
</td> <td>
</td> <td>
</td> <td>63.5</td> <td>
</td> </tr> <tr> <td> &am p;nbsp;LY %</td> <td>
</td> <td>
</td> <td>
</td> <td>
</td> <td>28.0</td> <td>
</td> </tr> <tr> <td> MO %</td> <td>
</td> <td>
</td> <td>
</td> <td>
</td> <td>5.9 (L)</td> <td>
</td> </tr> <tr> <td> EO %</td> <td>
</td> <td>
</td> <td>
</td> <td>
</td> <td>2.0</td> <td>
</td> </tr> <tr><td> IG %</td> <td>
</td> <td>
</td> <td>
[...]
</td> <td>0.2</td> <td>
</td> </tr> <tr> <td> BA # x 10^3/uL</td> <td>
</td> <td>
</td> <td>
</td> <td>
</td> <td>0.0</td> <td>
</td> </tr> <tr> <td> IG # x 10^3/uL</td> <td>
</td> <td>
</td> <td>
</td> <td>
</td> <td>0.02</td> <td>
</td> </tr> <tr> <td> LY # x 10^3/uL</td> <td>
</td> <td>
</td> <td>
</td> <td>
</td> <td>3.2</td> <td>
</td> </tr> </t body></table></span>
<span class=clinicalNoteMacroHighlighted id=[id number] macroname=RecentLabResultsTable parameters=&quot ;OptionalFlowsheetCategory:Chemistries,Label:CMP spantype=macro title=#Recen tLabResultsTable(OptionalFlowsheetCategory:Chemistries,Label:CMP)></span>
&l t;span class=clinicalNoteMacroHighlighted id=[id number] macronam e=RecentLabResultsTable parameters=OptionalFlowsheetCategory:Coags,Label:Coagulation spantype=macro title=#RecentLabResultsTable(OptionalFlowsheetCategory:Coa gs,Label:Coagulation)></span>
<span class=clinicalNoteMacroHighlighted id=[id number] macroname=RecentLabResultsTable paramete rs=OptionalFlowsheetCategory:Tumor Markers spantype=macro title=#Recen tLabResultsTable(OptionalFlowsheetCategory:Tumor Markers)> &lt ;/span>

<span class=clinicalNoteSectionShowSeparators clinicalNoteSec tionVisible id=[id number] internalbreaksection=false noni ginalname=Imaging recognizeconcepts=true spantype=section suppre ssempty=true>Imaging:</span>
Pelvic ultrasound 10/26/2022
Impr ession:
Diffusely thickened some but hypervascular endometrium measuring 16 mm. Mildly prominent ovarian volumes bilaterally with multiple ovarian follicles.

Pelvic ultrasound 11/25/2022:
Low lying IUD, which appears to be in the cervix and pushing on the vaginal wall.

Pelvic ultrasound 02/21/2023:
IUD is present within the endocervical canal.
<span class=clinicalNoteSectionShowSeparators clinicalNoteSectionVisible id=[id number] internalbreaksection="false originalname=Problems: recognizeconcepts=true spantype=section suppressempty=false>Problems:</span>
<span></span><span class=clinicalNoteMacroHighlighted id=[id number] macroname=Problems parameters=ListType:Bulleted spantype=macro t itle=#Problems(ListType:Bulleted)><ul> <li>Dyspnea (finding)</li> & lt;li>EIN</li> <li>Endometrial adenocarcinoma</li> <li>Endometriosis</li> <li>Possible </li></ul></span>

<span c lass=clinicalNoteSectionShowSeparators clinicalNoteSectionVisible id=[id number] internalbreaksection=false originalname=Assessment & Plan recognizeconcepts=true spantype=section suppressempty=false">Assessment & Plan (Supervisor Refining Oncology):</span>
Peng Bravo is a 32-year-old woman with EIN.
Patient is tolerating Provera well. Side effects from Megace are resolved.
<span>Patient still desires fertility sparing management. </span>We discussed concerns for continuing fertility sparing treatment in the light of biopsies with persistent EIN. However, this last biopsy had improvement in comparison to the previous sample. We discussed that she has been off and on treatment due to malpositioned IUD x2 and inability to tolerate Megace. Now that we have gained stability on provera, we will continue our current management and hope she will experience regression of her lesion.
She is due for repeatendometrial biopsy in 3 months.
<span class=clinicalNoteSectionShowSeparators clinicalNoteSectionVisible id=[id number] internalbre aksection=false originalname=Plan for Pain recognizeconcepts=true" spantype=section suppressempty=false>Pain Care Management:</span>
<span><span class=clinicalNoteMacroHighlighted id=[id number] macroname=PatientPainScale parameters=Label:Pain Scale: ,LookBack Days:0,ValueIfNull:Not recorded on visit spantype=macro title=#PatientMary Grace izzy(Label:Pain Scale: ,LookBackDays:0,ValueIfNull:Not recorded on visit)>Pain Scale: 8</span></span></span>
<span><span>
<span class=c cheloicalNoteSesarahShCornellarators clinicalNoteSectionVisible id=[id number] internalbreaksection=false originalname=Patient Care Management recognizeconcepts=true spantype=section suppressempty=false>Patient Care needs:</span>
<span class=clinicalNoteMacroHighlighted id="[id number] macroname=DepressionStatus parameters=Label:Depressions Status: ,ValueIfNull:Not recorded on visit spantype=macro title=#Ton sionStatus(Label:Depressions Status: ,ValueIfNull:Not recorded on visit)>Depressions Status: Not recorded on visit</span>
Psycho-Social PHQ-9 Follow-up Plan (if applicable):
<span><span class=clinicalNoteMacroHighlighted id=[id number] macroname=PatientSmokingStatus parameters=Label:Smoking Status: ,Charisma ueIfNull:Not recorded spantype=macro title=#PatientSmokingStatus(Label:Smoki ng Status: ,ValueIfNull:Not recorded)>Smoking Status: Smoking Tobacco : Former smoker; Smokeless Tobacco : Never used smokeless tobacco; Vaping : Never vaped</span></span></span></span><span><span></span></span>

<hr>&l t;span><strong>Hortencia Greer MD</strong>
<span class=clinica lNoteMacroHighlighted id=[id number] macroname=LocationPhoneNumb er parameters=Label:Phone: spantype=macro title=#LocationPhoneN umber(Label:Phone: )> </span>
<span class=clini calNoteMacroHighlighted id=[id number] macroname=LocationFaxNumb er parameters=Label:Fax: spantype=macro title=#LocationFaxNumbe r(Label:Fax: )> </span>

Copy to: <span class= clinicalNoteMacroHighlighted id=[id number] macroname=Note Recipients spantype=macro title=#NoteRecipients> &nbsp ; </span></span>

</div>

<div><span class=eSignSignature>Electronically signed by Hortencia Greer MD 07/20 12:38 PALLIATIVE CARE PHYSICIAN</span></div></body></html>
--- OUTSIDE RECORDS SUMMARY | 2025-04-06 15:32 | XMS_ITS | CCD ---
Author Name Interface, [id number] lity Address [address] [place] [address] [address] [address] [facility] Address [address] [facility] [address] [address] Care Team Providers [employer]ated [employer] Driver Name Role Phone Junie Barnes MD Unavailable Unavailable Allergies and Adverse Reactions Medication/Group Name Reaction Severity Date banana 12/01/2023 avocado 12/01/2023 Care Plan Date Type Value 08/19/2024 APPOINTMENT SURGERY 30 MIN 05/07/2024 APPOINTMENT SURGERY 30 MIN 05/07/2024 APPOINTMENT SURGERY 30 MIN 05/07/2024 APPOINTMENT SURGERY 30 MIN 05/07/2024 APPOINTMENT SURGERY 30 MIN 03/28/2025 LAB_ORDER Pelvic U/S w/tra nsvaginal & abdominal probe Reason for Visit SURGERY 30 MIN Encounters Date Name 08/19/2024 EIN Diagnostic Results Date Type Test Units Lower Limit Upper Limit Result Flag Comments Status Ordered By Specimen Source Lab Address 08/19 Misc other lab See d Medications Date Name Route Dose Frequency Instructions Start Date End Date Status Fill Status Indication 11/29 Oxycodo ne-Acet aminoph en Oral 5 mg-325 mg every 4 hours inactive 03/03 Topiram ate Oral active 11/02 Lorazep am Oral 1/2 to 1 tab prn inactive 11/30 Probiot ics Oral uro womans probiotic active 11/02 Megestr ol Oral 2 tabs twice daily inactive 03/03 Furosem brittany Oral PO 1.0 tablet 2 tabs daily active Problems Diagnosis Status Date of Diagnosis Resolution Date Endometrial adenocarcinoma Active Endometriosis Active EIN Active Possible Active Dyspnea (finding) Active Passage of bloody stools Active Epigastric pain Active Headache Active Postoperative nausea and vomiting Active Breast pain Active Procedures Date Category Name Instructions Status 08/19/2024 Physician Order Consultation requested Dr Billy Isaac - hx of EIN (medical management w/ Supervising Film Or Videotape Editor Onc) & desires weight loss; also recent ruptured hemorrhagic cyst / pain - consideration of ovarian suppression Ordered 03/28/2025 Physician Order Pelvic U/S w/tra nsvaginal & abdominal probe Irregular periods - hx of endometrial cancerPatient [place] imaging center there Ordered Social History Date Name Value 11/02/2022 Sex Female
[2025-04-06 16:44] LABS: Appearance Urine Clear (Clear)
[2025-04-06 16:47] LABS: Ur HCG Qualitative* Negative (Negative)
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
[2025-04-06 16:53] LABS: Hematocrit* 45.0 % (33.0-51.0); Hemoglobin* 15.5 gm/dL (12.0-16.0); Immature Granulocytes Pct Auto 0.1 %; Mean Corpuscular HGB Conc 34 gm/dL (32-36); Mean Corpuscular Hemoglobin 32 pg (26-34); Mean Corpuscular Volume 92 fL (80-100); RDW Coefficient of Variation % 12.3 % (11.5-15.5); Red Blood Count* 4.88 m/uL (4.00-5.20); White Blood Count* 15.73 K/uL (4.50-11.00)
--- OUTSIDE RECORDS SUMMARY | 2025-04-06 16:53 | XMS_ITS ---
Author Name Interface, [id number] lity Address [address] [address] [facility] Address [address] [address] Support Name Relationship Address Phone Jose Traylor [...] Lab Address 08/19 Mis other lab See elastic attacher zigzag d Medications Date Name Route Dose Frequency Instructions Start Date End Date Status Fill Status Indication 03/03 Furosem brittany Oral PO 1.0 tablet 2 tabs daily active 11/30 Probiot ics Oral uro womans probiotic active 03/03 Topiram ate Oral active 11/30 medroxy progest erone acetate 10 MG Oral Tablet [Wet Silk Hanger a] orally 2.0 tablet daily 2023 active EIN 07/27 medroxy progest erone acetate 10 MG Oral Tablet [Wet Silk Hanger a] orally 2.0 tablet daily 2023 active EIN 05/31 medroxy progest erone acetate 10 MG Oral Tablet [Wet Silk Hanger a] orally 2.0 tablet daily 2022 active [...] Systolic 140 07/27/2023 Intravascular Diastolic 80 09/26/2023 Intravascular Systolic 106 09/26/2023 Intravascular Diastolic 74 09/26/2023 Height 64.00 09/26/2023 Pain Scale 0.00 09/26/2023 Respiratory Rate 16.00 09/26/2023 Body Temperature 96.40 09/26/2023 BSA 2.01 09/26/2023 BMI 36.39 09/26/2023 Weight 212.00 09/26/2023 Oxygen Saturation 99.00 09/26/2023 Heart Beat 56.00 12/01/2023 Heart Beat 84.00 12/01/2023 Respiratory Rate 16.00 12/01/2023 Oxygen Saturation 98.00 12/01/2023 Pain Scale 4.00 12/01/2023 Intravascular Systolic 116 12/01/2023 Intravascular Diastolic 78 12/01/2023 BSA 2.04 12/01/2023 BMI 37.97 12/01/2023 Height 64.00 12/01/2023 Weight 221.20 12/01/2023 Body Temperature 97.60 Notes Section * 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

<strong>GYNECOLOGIC ONCOLOGY FOLLOW-UP VISIT</strong>
</div><div>
<strong>Patient Name:</strong> [...] internalbreaksection=false originalname="Chief Complaint recognizeconcepts=true spantype=section suppressempty=false>Chief Complaint ([facility]ist Oncology):</span>
follow up
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
Peng Bravo is a 32 year [...] internalbreaksection=false originalname=Genetic Testing recognizeconcepts=true spantype=section suppressempty=false>Genetic Testing (Pricing Specialist Oncology):</span>
None
<span><span><span></span ></span></span></span></span>
<span><span><span><span class=clinicalNoteSectionShowSeparators clinicalNoteSectionVisible id=s [id number] internalbreaksection=false originalname=Interval His tory (Pricing Specialist Oncology) recognizeconcepts=true spantype=section suppressem pty=false>Interval History (Pricing Specialist Oncology)</span></span></span>
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
G0
PCOS
Last Pap 10/25/2022 NILM HPV negative,, NILM in
No history of abnormal Pap smears

<span><span class=clinicalNoteSectionShowSeparators clinicalNoteSectionVisible id=[id number] internalbreaksection=false originalname=Allergies recognizeconcepts=true spantype=section suppressempty=false>Allergies:</span>
<span class=clinicalNoteMacroHighlighted id=[id number] macroname=Allergies parameters=ListType:Bulleted,ValueIfNull:NKDA spantype=macro title=#Allergies(ListType:Bulleted,ValueIfNull:NKDA)><ul> <li>avocado</li> <li>banana</li></ul></span>
<span><span class=clinicalNoteSectionShowSeparators clinicalNoteSectionVisible id=[id number] internalbreaksection=false originalname=Medications recognizeconcepts=true spantype=section suppressempty=false>Medications:</span>
<span class=clinicalNoteMacrILighalegent health mercy hospitaled id=[id number] macronam e=CurrentMedications parameters=ListType:Bulleted spantype=macro title=#CurrentMedications(ListType:Bulleted)><ul> <li>Megestrol [...] spantype=section suppressempty= false>Social History:</span>
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
Former cigarette use
[...] internalbreaksection=false originalname=Physical Exam recognizeconcepts=true spantype=section suppressempty=false>Physical Exam (Pricing Specialist Oncology):</span>
General: NAD
HEENT: wnl
Lungs: No [...] & Plan recognizeconcepts=true spantype=section suppressempty=false">Assessment & Plan (Pricing Specialist Oncology):</span>
Peng Bravo is a 32-year-old woman [...] spantype=section suppressempty=false>Pain Care Management:</span>
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
--- OUTSIDE RECORDS SUMMARY | 2025-04-06 16:53 | XMS_ITS ---
Author Name Interface, [id number] lity Address [address] [address] [facility] Oncology Address [address] [address] Support Name Relationship Address Phone Jose Traylor [...] Ordered By Specimen Source Lab Address 08/19 [facility] [place] See attache alegre Medications Date Name Route Dose Frequency Instructions Start Date End Date Status Fill Status Indication 03/03 Furosem brittany Oral PO 1.0 tablet 2 tabs daily active 11/30 Probiot ics Oral uro womans probiotic active 03/03 Topiram ate Oral active 11/30 medroxy progest erone acetate 10 MG Oral Tablet [Carrot Buncher a] orally 2.0 tablet daily 2023 active EIN 07/27 medroxy progest erone acetate 10 MG Oral Tablet [Carrot Buncher a] orally 2.0 tablet daily 2023 active EIN 05/31 medroxy progest erone acetate 10 MG Oral Tablet [Carrot Buncher a] orally 2.0 tablet daily 2022 active [...] Intravascular Diastolic 74 09/26/2023 Height 64.00 12/01/2023 Heart Beat 84.00 12/01/2023 Body Temperature 97.60 12/01/2023 BSA 2.04 12/01/2023 BMI 37.97 12/01/2023 Intravascular Systolic 116 12/01/2023 Intravascular Diastolic 78 12/01/2023 Weight 221.20 12/01/2023 Pain Scale 4.00 12/01/2023 Oxygen Saturation 98.00 12/01/2023 Respiratory Rate 16.00 12/01/2023 Height 64.00 Notes Section * 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 SINGH <html><head></head><body><div style=text-align:center><span class=clinicalNoteMacroHighlighted id=[id number] macroname =PracticeLetterhead spantype=macro title=#PracticeLetterhead><img febssj=297 [id number]" plfjh=113></span>

<strong>GYNECOLOGIC ONCOLOGY FOLLOW-UP VISIT</strong>
</div><div>
<strong>Patient Name:</strong> <span class=clinicalNoteMacroHighlighted id=[id number] macroname=PatientName spantype=macro title=#PatientName>PENG BRAVO</span> <strong>:</strong> <span class=clinicalNoteMacroHighlighted id=[id number] macroname=PatientDateOfBirth spantype=macro title=#PatientDateOfBirth>1990</span>
<strong>Date of Visit:</strong> <span class=clinicalNoteMacroHighlighted id=[id number] macroname=EffectiveDate spantype=macro title=#EffectiveDate>09/26/2023</span>
<strong>Referring Provider:</strong> <span class=clinicalNoteMacroHighlighted id=[id number] macroname=ReferringPhysician spantype=macro title=&quo t;#ReferringPhysician>September KADE Redman</span>
<strong>Attending: </strong> <span class=clinicalNoteMacroHighlighted id=[id number] macroname=AttendingPhysician spantype=macro title=#Attendi ngPhysician>Hortencia Greer (Gynecological/Oncology)</span>
&lt ;span>
<span class=clinicalNoteSectionShowSeparators clinicalNoteSectionVisible id=[id number] internalbreaksection=false originalname=Chief Complaint recognizeconcepts=true spantype=section suppressempty=false>Chief Complaint (Dump Attendant Oncology):</span></span>
</div><ul> <li>Transfer of care to Dr. 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
<span class=clinicalNoteSectionShowSeparators clinicalNoteSectionVisible id=s [id number] internalbreaksection=false originalname=HPI r ecognizeconcepts=true spantype=section suppressempty=false>History of Present Illness (D[facility] Attendant Oncology):</span>
Peng Bravo is a 32 yo [...] originalname=Genetic Testing recognizeconcepts=true spantype=section suppressempty=false>Gen etic Testing (D[facility] Attendant Oncology):</span>
None
<span><span><span&gt ;</span></span></span>
<span><span><span></span>& lt;/span></span></span></span>
<span><span><span><span class=clinicalNoteSectionShowSeparators clinicalNoteSectionVisible id=sectio [id number] internalbreaksection=false originalname=Interval History (Dump Attendant Oncology) recognizeconcepts=true spantype=section suppressempty=& quot;false>Interval History (Dump Attendant Oncology)</span></span></span>
Ms. Sukh Bravo is a 32 [...] her daughter's biological mother, who resides in [place]. She has had 2 separate episodes of [...] History:</span><ol> <li>PCOS</li> <li>AUB</li></ol>
<span class=clinicalNoteSectionShowSeparators clinicalNoteSectionVisible id=[id number] biology internship albreaksection=false originalname=Past Surgical History recognizeconcepts=&q uot;true spantype=section suppressempty=true>Surgical History:</span><ol> <li>Bunion removal</li> <li>Cholecystectomy 2016</li></ol>
<span class=clinicalNoteSectionShowSeparators clinicalNoteSectionVisible" id=[id number] internalbreaksection=false originalname=&quo t;Past Obstetrical and Gynecologic History recognizeconcepts=true spantype=s ection suppressempty=false>wood stainer History:</span><ul> <li>G0</li> <li>PCOS</li> <li>Last Pap 10/25/2022 NILM [...] recognizeconcepts=true" spantype=section suppressempty=false>Social History:</span>
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
Former cigarette use

<span [...] originalname=Physical Exam re cognizeconcepts=true spantype=section suppressempty=false>Physical Exam (Dump Attendant Oncology):</span>
General: alert, cooperative, no acute distress<b [...] Plan recognizeconcepts=true spantype=section suppressempt y=false>Assessment & Plan (Dump Attendant Oncology):</span>
Peng Bravo is a 32-year-old woman [...] present were apprised of the use of [employer] remote documentation service and all parties consented to conducting the visit in this manner.<b r>
Documentation assistance provided by yarelis Otto for Junie Singh MD on 09/26/2023.

I, Junie Singh MD, personally performed the services described [...]
--- OUTSIDE RECORDS SUMMARY | 2025-04-06 16:53 | XMS_ITS ---
Author Name Interface, [id number] lity Address [address] [place] [address] [address] [address] [facility] Address [address] [address] Support Name Relationship Address Phone Jose Traylor [...] MIN 12/01/2023 APPOINTMENT POST OP 30 MIN 02/05/2024 LAB_ORDER Mammogram, scree michael, bilateral breast 02/16/2024 LAB_ORDER Mammogram, diagn ostic, bilateral breast 03/28/2025 LAB_ORDER Pelvic U/S w/tra nsvaginal & abdominal probe Reason for Visit SURGERY 30 MIN Encounters Date Name 12/01/2023 Breast pain 12/01/2023 EIN 12/01/2023 Epigastric pain 12/01/2023 Headache Diagnostic Results Date Type Test Units Lower Limit Upper Limit Result Flag Comments Status Ordered By Specimen Source Lab Address 08/19 [facility] [place] See attache alegre Medications Date Name Route Dose Frequency Instructions Start Date End Date Status Fill Status Indication 03/03 Furosem brittany Oral PO 1.0 tablet 2 tabs daily active 11/30 Probiot ics Oral uro womans probiotic active 03/03 Topiram ate Oral active 11/30 medroxy progest erone acetate 10 MG Oral Tablet [Canteen Operator a] orally 2.0 tablet daily 2023 active EIN 07/27 medroxy progest erone acetate 10 MG Oral Tablet [Canteen Operator a] orally 2.0 tablet daily 2023 active EIN 05/31 medroxy progest erone acetate 10 MG Oral Tablet [Canteen Operator a] orally 2.0 tablet daily 2022 active Problems Diagnosis Status Date of Diagnosis Resolution Date Endometrial adenocarcinoma Active Endometriosis Active EIN Active Possible Active Dyspnea (finding) Active Passage of bloody stools Active Epigastric pain Active Headache Active Postoperative nausea and vomiting Active Breast pain Active Vital Signs Date Type Value 12/01/2023 Heart Beat 84.00 12/01/2023 Respiratory Rate 16.00 12/01/2023 Oxygen Saturation 98.00 12/01/2023 Pain Scale 4.00 12/01/2023 Intravascular Systolic 116 12/01/2023 Intravascular Diastolic 78 12/01/2023 Height 64.00 12/01/2023 BMI 37.97 12/01/2023 BSA 2.04 12/01/2023 Body Temperature 97.60 12/01/2023 Weight 221.20 Notes Section * INFORMATION TECHNOLOGY DIRECTOR Follow-Up <html><head></head><body><div style=text-align:center><span class=clinicalNoteMacroWysiwyg id=[id number] macroname=&quo t;PracticeLetterhead spantype=macro title=#PracticeLetterhead><img cgnjki=[id number] uzhcb=[email or web address]></span>

<strong>GYNECOLOGIC ONCOLOGY FOLLOW-UP VISIT</strong>
</div><div>
<strong>Patient Name:</strong> <span class=clinicalNoteMacroWysiwyg id=[id number] macroname=PatientName spantype=macro title=#PatientName>MAGDY WINENAS BRAVO</span> <strong>:</strong> <span class=clinicalNoteMacroWysiwyg id=[id number] macroname=PatientDateOfBirth spantype=macro title=#PatientDateOfBirth>1990</span>
<strong>Date of Visit:</strong> <span class=clinicalNoteMacroWysiwyg id="[id number] macroname=EffectiveDate spantype=macro title=& quot;#EffectiveDate>12/01/2023</span>
<strong>Referring Provider:</strong> <span class=clinicalNoteMacroWysiwyg id=[id number] macroname=ReferringPhysician spantype=macro title=#ReferringPhysician >September KADE Redman</span>
<strong>Attending:</strong> <span class=clinicalNoteMacroWysiwyg id=[id number] macroname=&quo t;AttendingPhysician spantype=macro title=#AttendingPhysician>Junie Barnes (Gynecological/Oncology)</span>
<span>
<span class=&quot ;clinicalNoteSectionVisible id=[id number] internalbreaksection="false originalname=Chief Complaint recognizeconcepts=true spantype="section suppressempty=false>Chief Complaint (Documentation Billing Clerk Oncology):</span></span>

post op
<span><span class=clinicalNoteSectionVisible id=[id number] internalbreaksection=false" originalname=HPI recognizeconcepts=true spantype=section suppressempty=false>History of Present Illness (Documentation Billing Clerk Oncology):</span>
Peng Bravo is a 33 yo premenopausal female with history AUB and PCOS. She is currently undergoing fertility sparing management of EIS with provera. Most recently s/p hysteroscopy D&C with benign pathology.

<u><strong>Oncology Treatment Summary</strong></u>:
07/08/2021: Disordered proliferative endometrium
[...] EIN, chronic endometritis likely 2/2 IUD
04/28/2023: <s wynn><span><span>ECHO completed and normal. No PE on CT chest. </span>& lt;/span></span>Megace restarted. </span>
05/31/2023: Continued side effects from Megace and Increased pelvic pain and cramping, fever. Patient was then treated for endometritis and switched to Provera.
07/11/2023: D&C: residual EIN but improved in comparison to prior sample. Tolerating Provera well.
09/26/2023: Transfer of care toDr. Barnes. Discussed repeat D&C with pelvic ultrasound [...] tissue with focal stromal pigment deposits, most likely hemosiderin, and without atypia.
<span><span></span></span>
<span><span></span></span>
<span><span></span></span>
<span><span><span cla ss=clinicalNoteSectionVisible id=[id number] internalbreaksect ion=false originalname=Genetic Testing recognizeconcepts=true sp antype=section suppressempty=false>Genetic Testing (Documentation Billing Clerk Oncology):</sp an>
None
<span><span><span></span></span></spa n>
<span><span><span></span></span></span>
<span><span><span></span></span></span></span></span&gt ;
<span><span><span><span class=clinicalNoteSectionVisible id=[id number] internalbreaksection=false originalname= Interval History (Documentation Billing Clerk Oncology) recognizeconcepts=true spantype=section&quot ; suppressempty=false>Interval History (Documentation Billing Clerk Oncology)</span></span></s wynn>
Peng is here today for a post op visit. She's doing ok. H as cold like symptoms including cough and headache. Occasional abdominal cramping. Some epigastric discomfort when she eats. Relieved with her pathology results. Request Provera refill. Occasional vaginal spotting. Has not followed up withGI, yet, as recommended back in September.

<span class=clinicalNoteSectionVisible id=[id number] internalbreaksection=false originalname=Review of Systems recognizeconcepts=true spantype="section suppressempty=false>Review of Systems:</span>
A complete 14-point review of systems is negative except as <span>noted </span>in the above history of present illness.</span>

<span class=clinicalNoteSectionVisible id=[id number] internalbreaksection=falseoriginalname=Past Medical History recognizeconcepts=true spantype=section suppressempty=false>Past Medical History:</span>
<ol><li>PCOS</li> <li>AUB</li></ol>
<span class=clinicalNoteSectionVisible id=[id number] internalbreaksection=false" originalname=Past Surgical History recognizeconcepts=true spantype=&quot ;section suppressempty=false>Surgical History:</span>
<ol> <li>Bunion removal</li> <li>Cholecystectomy 2016</li></ol>
<span class=clinicalNoteSectionVisible id=[id number] interna lbreaksection=false originalname=Past Obstetrical and Gynecologic History re cognizeconcepts=true spantype=section suppressempty=false>division supervisor History:</span>
<ul> <li>G0</li> <li>PCOS</li> <li>Last Pap 10/25/2022 NILM HPV negative, NILM in </li> <li>No history of abnormal Pap smears</li></ul>
<span></span>
<span></span>
<span><span class=clinicalNoteSectionVisible" id=[id number] internalbreaksection=false originalname="Allergies recognizeconcepts=true spantype=section suppressempty=&quot ;false>Allergies:</span>
<span class=clinicalNoteMaoWysiwyg id=[id number] macroname=Allergies parameters=ListType:Bul leted,ValueIfNull:NKDA spantype=macro title=#Allergies(ListType:Bulleted,Charisma ueIfNull:NKDA)><ul> <li>avocado</li> <li>banana</li></ul&g t;</span>
<span><span class=clinicalNoteSectionVisible id= [id number] internalbreaksection=false originalname=Medications recognizeconcepts=true spantype=section suppressempty=false&quo t;>Medications:</span>
<span class=clinicalNotMyMichigan Medical Centerysiw id=&quo t;macro_[id number] macroname=CurrentMedications parameters=ListType:Bu lleted spantype=macro title=#CurrentMedications(ListType:Bulleted)><ul> <li>Topamax (Topiramate Oral)</li> <li>Furosemide Oral 20 mg tablet 1 tablet PO 2 tabs daily</li> <li>Provera (Medroxyprogesterone Oral) 10 mg tablet 2 tablet orally daily.</li> <li>Probiotics Oral uro womans probiotic</li></ul></sp an></span></span>

<span class=clinicalNoteSectionVisible" id=[id number] internalbreaksection=false originalname=&q uot;Family History recognizeconcepts=true spantype=section suppressemp ty=false>Family History:</span>
Unknown cancer history
<span class=clinicalNoteSectionVisible id=[id number] internalbreak section=false originalname=Social History recognizeconcepts=true spantype=section suppressempty=false>Social History:</span>
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
Former cigarette use
<span class=clinicalNoteSectionVisible id=[id number] psychology intern albreaksection=false originalname=Health Maintenance: recognizeconcepts=&quo t;true spantype=section suppressempty=false>Health Maintenance:< /span>
Pap smear up-to-date
<span class=clinicalNoteSectionVisible" id=[id number] internalbreaksection=false originalname=&quot ;Vital Signs recognizeconcepts=true spantype=section suppressempty=&qu ot;false>Vital Signs:</span>
<span class=clinicalNoteMacroWysiwyg" id=[id number] macroname=PatientVitalSigns parameters= LookBackDays:1 spantype=macro title=#PatientVitalSigns(LookBackDays:1) >Blood pressure: 116/78, Pulse: 84, Temperature: 97.6 F, Respirations: 16, O2 sat: 98%, Pain Scale: 4, Height: 64 in, Weight: 221.2 lb, BSA: 2.04, BMI: 37.97 kg/m2</span>

<span class=clinicalNoteSectionVisible id=[id number] internalbreaksection=false originalname=Physical Exam recognizeconcepts=true" spantype=section suppressempty=false>Physical Exam (Documentation Billing Clerk Oncology):</span>
General: alert, cooperative, no acute distress
Cardiac: regular rate,well-perfused
Lungs: no labored breathing on room air
Neurologic Exam: no focal deficits
Psych: appropriate mood and affect
Pelvic: deferred
<span class=clinicalNoteSectionVisible id=[id number] internalbr eaksection=false originalname=Laboratory Data recognizeconcepts=true" spantype=section suppressempty=false>Laboratory Data:</span>
<span class=clinicalNoteMacroWysiwyg id=[id number] m acroname=RecentLabResultsTable parameters=OptionalFlowsheetCategory:CBC,Label:CBC" spantype=macro title=#RecentLabResultsTable(OptionalFlowsheetCategory:CBC,La bel:CBC)>CBC<table border=1 style=width:100%> <tbody> <tr> <th align=left>Lab Results</th> [...] <td>
</td> <td>89.8</td> <td>
</td> </tr> <tr> <td&g t; MCH pg</td> <td>
</td> <td>
</td> <td>
</td> <td>
</td> <td>31.0</td> <td>
</td> </tr> <tr> <td> &n bsp; MCHC g/dL</td> <td>
</td> <td>
</td> <td>
</td> <td>
</td> <td>34.5</td> <td>
</td> </tr> <tr> <td> RDW %</td> <td>
</td> <td>
</td> <td&g t;
</td> <td>
</td> <td>12.70</td> <td>
</td> </tr> <tr> <td> PLT x 10^3/uL</td> <td>
</td> <td>
</td> <td>
</td> <td>
</td> <td>257</td> <td>
</td> </tr> <tr> <td> MPV fL</td> <td>
</td> <td>
</td> <td>
</td> <td>
</td> <td>10.8</td> <td>
</td> </tr><tr> <td> Guerita %</td> <td>
</td> <td>
</td> <td>
</td> <td>
</td> <td>63.5</td> <td>
</td> </tr> <tr> <td&g t; LY %</td> <td>
</td> <td>
</td> <td>
</td> <td>
</td> <td>28.0</td> <td>
</td> </tr> <tr> <td> &nbs p; MO %</td> <td>
</td> <td>
</td> <td>
</td> <td>
</td> <td>5.9 (L)</td> <td>
</td> </tr> <tr> <td> & nbsp;EO %</td> <td>
</td> <td>
</td> <td>
</td> [...] <td>
</td> <td>
</td> <td>
</td> <td>
</td><td>0.7</td> <td>
</td> </tr> <tr> <td> EO # [...]
</td> <td>3.2</td> <td>
</td> </tr> </tbody></table></span>
<span [facility]=clinicalNoteMaSelect [facility] id=[id number] macroname=RecentLabResultsTable parameters=OptionalFlowsheetCategory:Chemistries,Label:CMP spantype=macro title=#RecentLabResultsTable(OptionalFlowsheetCategory:Chemistries,Label:CMP) ></span>
<span class=clinicalNotMad[facility] id=[id number] macroname=RecentLabResultsTable parameters=OptionalFlowsheetCate gory:Coags,Label:Coagulation spantype=macro title=#RecentLabResultsTable(Opt ionalFlowsheetCategory:Coags,Label:Coagulation)></span>
<span class=&quot ;[facility]Not[facility] id=[id number] macroname=RecentLabResul tsTable parameters=OptionalFlowsheetCategory:Tumor Markers spantype=macro&qu ot; title=#RecentLabResultsTable(OptionalFlowsheetCategory:Tumor Markers)> </span>

<span class=clinicalNoteSectionVisible" id=[id number] internalbreaksection=false originalname="Imaging recognizeconcepts=true spantype=section suppressempty=&quo t;false>Imaging:</span>
<strong>Pelvic ultrasound 10/26/2022
I mpression:</strong>
Diffusely thickened some but hypervascular endometrium bdjcygare83 mm. Mildly prominent ovarian volumes bilaterally with multiple ovarian follicles.

<strong>Pelvic ultrasound 11/25/2022:</strong>
Low lying IUD, which appears to be in the cervix and pushing on the vaginal wall.

<strong>Pelvic ultrasound 02/21/2023:</strong>
IUD is present within the endocervical canal

.
<span class=clinicalNoteSectionVisible id="[id number] internalbreaksection=false originalname=Problems: recognizeconcepts=true spantype=section suppressempty=false& quot;>Problems:</span>
<span></span><span class=clinicalNoteMacroWysiwyg id=[id number] macroname=Problems parameters=&q uot;ListType:Bulleted spantype=macro title=#Problems(ListType:Bulleted)&quot ;><ul> <li>EIN</li> <li>Dyspnea (finding)</li> <li>Endometrial adenocarcinoma</li> <li>Endometriosis</li> <li>Passage of bloody stools</li> <li>Possible </li> <li>Postoperative nausea and vomiting</li& gt;</ul></span>

<span class=clinicalNoteSectionVisible id=[id number] internalbreaksection=false originalname= Assessment & Plan recognizeconcepts=true spantype=section supp ressempty=false>Assessment & Plan (Documentation Billing Clerk Oncology):</span>
Peng Bravo is a 32-year-old woman with EIN, currently, on progestin therapy with fertility preservation.

1. EIN, desiring fertility preservation
<ul> <li>Transfer of care to Dr. Barnes on 09/26/[address] Greer's departure from the practice</li> <li>Tolerating Provera well <ul> <li><span>Intolerance to Megace. </span>
</li> <li><span>Previous IUD use with discomfort/malpositioning leading to removal.</span>
</li> <li><span>Continue to desire fertility sparing management.</span>
</li> </ul> </li> <li><span>Had some progestin therapy treatment breaks (2/2 malpositionedIUD x 2 and inability to tolerate Megace)</span></li> <li><span>s/p D&C 10/23/23</span>
<ul> <li>pathology benign</li> <li>Aware would require 2 negative biopsies in a row prior to attempt. If not ready to become after 2 negative biopsies, can continue on provera & space out D&C to every 6 months</li> <li><strong>Continue on Provera and repeat D&C in 3 months. Refill sent today. </strong></li> <li>Dis cussed that Provera is NOT effective contraception and should use back-up method if engages in intercourse
</li> </ul> </li> <li>[facility] referral placed at previous visit <span></span>
</li></ul><span>2. Episodes of bloody stools x 2</span>
3. Epigastric discomfort
<ul> <li>[facility] GI referral placed 09/26/2023</li> <li>reiterated GI referral today</li></ul>4. Cold Symptoms<ul> <li>recommend f/u with PCP if symptoms worsen or persist</li> <li>encouraged Tylenol and ibuprofen for headache. </li> <li >afebrile. </li></ul>Plan repeat hysteroscopy D&C 3 months from prior (January) </span>

<span><span class=clinicalNoteSectionVisible id=[id number] internalbrea ksection=false originalname=Plan for Pain recognizeconcepts=true spantype=section suppressempty=false>Pain Care Management:</span>& lt;br><span><span class=clinicalNotProMedica Memorial HospitalcaitlynoWysiwyg id=[id number] macroname=PatientPainScale parameters=Label:Pain Scale: ,LookBackDays:0 ,ValueIfNull:Not recorded on visit spantype=macro title=#PatientPainScale(La bel:Pain Scale: ,LookBackDays:0,ValueIfNull:Not recorded on visit)>Pain Scale: 4</span></span></span>
<span><span>
<span class=clinica lNoteSectionVisible id=[id number] internalbreaksection=false&q uot; originalname=Patient Care Management recognizeconcepts=true spantype=&q uot;section suppressempty=false>Patient Care needs:</span>
<span class=clinicalNotProMedica Memorial HospitalcroWysiwyg id=[id number] macroname=&quot ;DepressionStatus parameters=Label:Depressions Status: ,ValueIfNull:Not recorded on visit spantype=macro title=#DepressionStatus(Label:Depressions Status: ,ValueIfNull:Not recorded on visit)>Depressions Status: Was not screened Reason: Patient Refused; Screening Date: 09/26/2023</span>
Psycho- Social PHQ-9 Follow-up Plan (if applicable):
<span><span class=clinicalNotProMedica Memorial HospitalcroWysiwyg id=[id number] macroname=PatientSmokingStatus parameters=Label:Smoking Status: ,ValueIf Null:Not recorded spantype=macro title=#PatientSmokingStatus(Label:Smoking S tatus: ,ValueIfNull:Not recorded)>Smoking Status: Smoking Tobacco : Former smoker; Smokeless Tobacco : Never used smokeless tobacco; Vaping : Never vaped</span></span></span></span><span><span></span></span>

<hr><sp an><strong>Kiah Escobar CNP</strong>
<span class=clinicalNoteMa croWlowiwyg id=[id number] macroname=LocationPhoneNumber par ameters=Label:Phone: spantype=macro title=#LocationPhoneNumber(Label: Phone: )> </span>
<span class=clinicalNoteMacroWlowiwyg id=[id number] macroname=LocationFaxNumber parameters=Label:Fax: spantype=macro title=#LocationFaxNumber(Label:Fax: )">Fax: </span>

Copy to: <span class=clinicalNoteMaJoel id=[id number] macroname=NoteRecipients spantype=macro title=#NoteRecipients>September Uziel GUADARRAMA (Referring)
FAX (Referring)
Adalberto Todd MD</span></span>

<br& gt;

</div>

<div><span class =eSignSignature>Electronically signed by Kiah Escobar CNP 12/01/2023 15:17 CDT</span></div></body></html>
--- OUTSIDE RECORDS SUMMARY | 2025-04-06 16:53 | XMS_ITS ---
Author Name Interface, [id number] lity Address [address] [place] [address] [address] [address] [facility] On[facility] Address [address] [facility] [address] [address] Support Name Relationship Address Phone Jose Traylor [...] Ordered By Specimen Source Lab Address 08/19 [facility] other lab See attache alegre Medications Date Name Route Dose Frequency Instructions Start Date End Date Status Fill Status Indication 03/03 Furosem brittany Oral PO 1.0 tablet 2 tabs daily active 11/30 Probiot ics Oral uro womans probiotic active 03/03 Topiram ate Oral active 11/30 medroxy progest erone acetate 10 MG Oral Tablet [Spudder a] orally 2.0 tablet daily 2023 active EIN 07/27 medroxy progest erone acetate 10 MG Oral Tablet [Spudder a] orally 2.0 tablet daily 2023 active EIN 05/31 medroxy progest erone acetate 10 MG Oral Tablet [Spudder a] orally 2.0 tablet daily 2022 active [...] 97.60 12/01/2023 Weight 221.20 Notes Section * 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

<strong>GYNECOLOGIC ONCOLOGY FOLLOW-UP VISIT</strong>
</div><div>
<strong>Patient Name:</strong> [...] internalbreaksection="false originalname=Chief Complaint recognizeconcepts=true spantype="section suppressempty=false>Chief Complaint (Aircraft Electronics Technical Officer Oncology):</span></span>

post op
<span><span class=clinicalNoteSectionVisible id=[id number] internalbreaksection=false" originalname=HPI recognizeconcepts=true spantype=section suppressempty=false>History of Present Illness (Aircraft Electronics Technical Officer Oncology):</span>
Peng Bravo is a 33 yo [...] originalname=Genetic Testing recognizeconcepts=true sp antype=section suppressempty=false>Genetic Testing (Aircraft Electronics Technical Officer Oncology):</sp an>
None
<span><span><span></span></span></spa n>
<span><span><span></span></span></span>
<span><span><span></span></span></span></span></span&gt ;
<span><span><span><span class=clinicalNoteSectionVisible id=[id number] internalbreaksection=false originalname= Interval History (Aircraft Electronics Technical Officer Oncology) recognizeconcepts=true spantype=section&quot ; suppressempty=false>Interval History (Aircraft Electronics Technical Officer Oncology)</span></span></s wynn>
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
<ul> <li>G0</li> <li>PCOS</li> <li>Last Pap 10/25/2022 NILM HPV negative, NILM in </li> <li>No history of abnormal Pap smears</li></ul>
<span></span>
<span></span>
<span><span class=clinicalNoteSectionVisible" id=[id number] internalbreaksection=false originalname="Allergies recognizeconcepts=true spantype=section suppressempty=&quot ;false>Allergies:</span>
<span class=clinicalNoteMaoWysiwyg id=[id number] macroname=Allergies parameters=ListType:Bul leted,ValueIfNull:NKDA spantype=macro title=#Allergies(ListType:Bulleted,Charisma ueIfNull:NKDA)><ul> <li>avocado</li> <li>banana</li></ul&g t;</span>
<span><span class=clinicalNoteSectionVisible id= [id number] internalbreaksection=false originalname=Medications recognizeconcepts=true spantype=section suppressempty=false&quo t;>Medications:</span>
<span class=clinicalNotPontiac General Hospitalysiw id=&quo t;[id number] macroname=CurrentMedications parameters=ListType:Bu lleted spantype=macro title=#CurrentMedications(ListType:Bulleted)><ul> [...] recognizeconcepts=true spantype=section suppressempty=false>Social History:</span>
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
Former cigarette use
<span class=clinicalNoteSectionVisible id=[id number] tax intern albreaksection=false originalname=Health Maintenance: recognizeconcepts=&quo t;true spantype=section [...] internalbreaksection=false originalname=Physical Exam recognizeconcepts=true" spantype=section suppressempty=false>Physical Exam (Aircraft Electronics Technical Officer Oncology):</span>
General: alert, cooperative, no acute distress
[...]
</td> <td>3.2</td> <td>
</td> </tr> </tbody></table></span>
<span [facility]=clinicalNoteMaM[facility] id=[id number] macroname=RecentLabResultsTable parameters=OptionalFlowsheetCategory:Chemistries,Label:CMP spantype=macro title=#RecentLabResultsTable(OptionalFlowsheetCategory:Chemistries,Label:CMP) ></span>
<span class=clinicalNotGrand [facility] id=[id number] macroname=RecentLabResultsTable parameters=OptionalFlowsheetCate gory:Coags,Label:Coagulation spantype=macro title=#RecentLabResultsTable(Opt ionalFlowsheetCategory:Coags,Label:Coagulation)></span>
<span class=&quot ;[facility]landsNot[facility] id=[id number] macroname=RecentLabResul tsTable parameters=OptionalFlowsheetCategory:Tumor Markers spantype=macro&qu ot; title=#RecentLabResultsTable(OptionalFlowsheetCategory:Tumor Markers)> </span>

<span class=clinicalNoteSectionVisible" id=[id number] internalbreaksection=false originalname="Imaging recognizeconcepts=true spantype=section suppressempty=&quo t;false>Imaging:</span>
<strong>Pelvic ultrasound 10/26/2022
I mpression:</strong>
Diffusely thickened some but hypervascular endometrium ivkkwualg27 mm. Mildly prominent ovarian volumes bilaterally with [...] Plan recognizeconcepts=true spantype=section supp ressempty=false>Assessment & Plan (Aircraft Electronics Technical Officer Oncology):</span>
Peng Bravo is a 32-year-old woman [...] Pain recognizeconcepts=true spantype=section suppressempty=false>Pain Care Management:</span>& lt;br><span><span class=clinicalNotParkview Health Bryan HospitalcaitlynoWysiwyg id=[id number] macroname=PatientPainScale parameters=Label:Pain Scale: ,LookBackDays:0 ,ValueIfNull:Not recorded on visit spantype=macro title=#PatientPainScale(La bel:Pain Scale: ,LookBackDays:0,ValueIfNull:Not recorded on visit)>Pain Scale: 4</span></span></span>
<span><span>
<span class=clinica lNoteSectionVisible id=[id number] internalbreaksection=false&q uot; originalname=Patient Care Management recognizeconcepts=true spantype=&q uot;section suppressempty=false>Patient Care needs:</span>
<span class=clinicalNotParkview Health Bryan HospitalcroWysiwyg id=[id number] macroname=&quot ;DepressionStatus parameters=Label:Depressions Status: ,ValueIfNull:Not recorded on visit spantype=macro title=#DepressionStatus(Label:Depressions Status: ,ValueIfNull:Not recorded on visit)>Depressions Status: Was not screened Reason: Patient Refused; Screening Date: 09/26/2023</span>
Psycho- Social PHQ-9 Follow-up Plan (if applicable):
<span><span class=clinicalNotParkview Health Bryan HospitalcroWysiwyg id=[id number] macroname=PatientSmokingStatus parameters=Label:Smoking Status: ,ValueIf Null:Not [...]
--- OUTSIDE RECORDS SUMMARY | 2025-04-06 16:53 | XMS_ITS | Data Portability ---
Author Organization [facility] Address [address] [place] [address] [facility] [address] Assessment Encounter Date Assessment Date Assessment LastModified by Organization Details LastModified Time 11/04/2019 11/04/2019 Negative COVID-19 [id number] Not available 02/03/2020 17:04:46 Plan of Treatment [...] ICD10 Code Diagnosis IMO Codes Diagnosis Note 95 Deedee Garibay NP [facility] [address] [facility] [address] 11/04/2019 14:20:25 11/04/2019 14:22:09 434 Deedee Garibay NP [facility] [address] [facility] [place] [place] [address] 12/02/2019 14:09:45 12/02/2019 14:11:51 [id number] Kaushik Roger MD [facility] [address] [facility] [place] [address] 02/17/2020 14:54:24 02/17/2020 15:32:46 Allergic rhinitis caused by pollen [id number] J30.1 Health Concerns Section Related Observation LastModified by Organization Detai ls LastModified Time None Recorded Concern Status LastModified by Organization Details LastModified Time None Recorded Advance Directives Directive None Recorded Payers Insurance Date Sequence Insurance Name Policy Number Policy Sorto Covered Member ID Sorto Member ID Guarantor Name 10/31/2019 SLIDING FEE SCHEDULE - DISCOUNT Herlen Sukh-Con de 05/21/2020 [place] Herlen Sukh- Kolb [id number] Herlen Sukh-Con de 05/21/2020 1 [employer] - DOS PRIOR TO 2021 (MEDICAID REPLACEMENT - HMO) [id number] Herlen Sukh- Kolb [id number] Herlen Sukh-Con de Notes Date Note Type Note Provider Name and Address Organization Details Recorded Time 02/17/2020 text/html eyes swollen, sneezing, itchy mouth, can't function Kaushik Roger MD [address] [facility], [address], [facility] [employer] 02/17/2020 15:29:19 OBGyn Episode No OBEpisode recorded.
--- OUTSIDE RECORDS SUMMARY | 2025-04-06 16:53 | XMS_ITS | CCD ---
Author Name Interface, [id number] lity Address [address] [place] [address] [address] [address] [facility] Address [address] [facility] [address] [address] Care Team Providers Care Asbestos Worker Helper Name Role Phone Junie Barnes MD Unavailable [...] - hx of EIN (medical management w/ Architecture Manager Onc) & desires weight loss; also recent ruptured hemorrhagic cyst / pain - consideration of ovarian suppression Ordered 03/28/2025 Physician Order Pelvic U/S w/tra nsvaginal & abdominal probe Irregular periods - hx of endometrial cancerPatient [place] there Ordered Social History Date Name Value 11/02/2022 Sex Female
--- OUTSIDE RECORDS SUMMARY | 2025-04-06 16:53 | XMS_ITS ---
Author Name Interface, M6Yivwolo lity Address [address] [facility] [address] [address] [facility] Address [address] [facility] [address] [address] Support Name Relationship Address Phone Jose Traylor [...] Lab Address 08/19 [facility] other lab See director clinical pharmacology d Medications Date Name Route Dose Frequency Instructions Start Date End Date Status Fill Status Indication 03/03 Furosem brittany Oral PO 1.0 tablet 2 tabs daily active 11/30 Probiot ics Oral uro womans probiotic active 03/03 Topiram ate Oral active 11/30 medroxy progest erone acetate 10 MG Oral Tablet [Sample Sawyer a] orally 2.0 tablet daily 2023 active EIN 07/27 medroxy progest erone acetate 10 MG Oral Tablet [Sample Sawyer a] orally 2.0 tablet daily 2023 active EIN 05/31 medroxy progest erone acetate 10 MG Oral Tablet [Sample Sawyer a] orally 2.0 tablet daily 2022 active [...] 12/01/2023 Body Temperature 97.60 Notes Section * INORGANIC 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

<strong>GYNECOLOGIC ONCOLOGY FOLLOW-UP VISIT</strong>
</div><div>
<strong>Patient Name:</strong> [...] internalbreaksection=false originalname="Chief Complaint recognizeconcepts=true spantype=section suppressempty=false>Chief Complaint (Email Marketing Specialist Oncology):</span>
follow up
<span class=clinicalNoteSectionShowSeparators clinicalNoteSectionVisible id=section [id number] internalbreaksection=false originalname=HPI recogniz econcepts=true spantype=section suppressempty=false>History of Present Illness (Email Marketing Specialist Oncology):</span>
Peng Bravo is a 32 [...] internalbreaksection=false originalname=Genetic Testing recognizeconcepts=true spantype=section suppressempty=false>Genetic Testing (Email Marketing Specialist Oncology):</span>
None
<span><span><span></span ></span></span></span></span>
<span><span><span><span class=clinicalNoteSectionShowSeparators clinicalNoteSectionVisible id=s [id number] internalbreaksection=false originalname=Interval His tory (Email Marketing Specialist Oncology) recognizeconcepts=true spantype=section suppressem pty=false>Interval History (Email Marketing Specialist Oncology)</span></span></span>
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
G0
PCOS
Last Pap 10/25/2022 NILM HPV negative,, NILM in
No history of abnormal Pap smears

<span><span class=clinicalNoteSectionShowSeparators clinicalNoteSectionVisible id=[id number] internalbreaksection=false originalname=Allergies recognizeconcepts=true spantype=section suppressempty=false>Allergies:</span>
<span class=clinicalNoteMacroHighlighted id=[id number] macroname=Allergies parameters=ListType:Bulleted,ValueIfNull:NKDA spantype=macro title=#Allergies(ListType:Bulleted,ValueIfNull:NKDA)><ul> <li>avocado</li> <li>banana</li></ul></span>
<span><span class=clinicalNoteSectionShowSeparators clinicalNoteSectionVisible id=[id number] internalbreaksection=false originalname=Medications recognizeconcepts=true spantype=section suppressempty=false>Medications:</span>
<span class=clinicalNoteMacrPRighosceola regional health centered id=[id number] macronam e=CurrentMedications parameters=ListType:Bulleted spantype=macro [...] spantype=section suppressempty= false>Social History:</span>
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
Former cigarette use
[...] internalbreaksection=false originalname=Physical Exam recognizeconcepts=true spantype=section suppressempty=false>Physical Exam (Email Marketing Specialist Oncology):</span>
General: NAD
HEENT: wnl
Lungs: [...] & Plan recognizeconcepts=true spantype=section suppressempty=false">Assessment & Plan (Email Marketing Specialist Oncology):</span>
Peng Bravo is a 32-year-old [...] spantype=section suppressempty=false>Pain Care Management:</span>
<span><span class=clinicalNoteMacroHighlighted id=[id number] macroname=PatientPainScale parameters=Label:Pain Scale: ,LookBack Days:0,ValueIfNull:Not recorded on [...] signed by Hortencia Greer MD 07/20 12:38 [place] [facility]</span></div></body></html>
--- OUTSIDE RECORDS SUMMARY | 2025-04-06 16:53 | XMS_ITS | CCD ---
Author Name Interface, [id number] lity Address [address] [place] [address] [address] [address] [facility] On[facility] Address [address] [facility] [address] [address] Care Team Providers Care Supervisor Channel Process Name Role Phone Junie Barnes MD Unavailable [...] - hx of EIN (medical management w/ Enchilada Maker Onc) & desires weight loss; also recent ruptured hemorrhagic cyst / pain - consideration of ovarian suppression Ordered 03/28/2025 Physician Order Pelvic U/S w/tra nsvaginal & abdominal probe Irregular periods - hx of endometrial cancerPatient [place] in [place] imaging center there Ordered Social History Date Name Value 11/02/2022 Sex Female
--- OUTSIDE RECORDS SUMMARY | 2025-04-06 16:53 | XMS_ITS ---
Author Name Interface, Z4Zivhksm lity Address [address] [facility] [address] [address] [facility] On[facility] Address [address] [facility] [address] [address] Support Name Relationship Address Phone Joes Traylor Mother Unknown Unavailable Bravo ZaidJuiceto Spouse [...] Ordered By Specimen Source Lab Address 08/19 [facility] other lab See attache alegre Medications Date Name Route Dose Frequency Instructions Start Date End Date Status Fill Status Indication 03/03 Furosem brittany Oral PO 1.0 tablet 2 tabs daily active 11/30 Probiot ics Oral uro womans probiotic active 03/03 Topiram ate Oral active 11/30 medroxy progest erone acetate 10 MG Oral Tablet [Splunk Developer a] orally 2.0 tablet daily 2023 active EIN 07/27 medroxy progest erone acetate 10 MG Oral Tablet [Splunk Developer a] orally 2.0 tablet daily 2023 active EIN 05/31 medroxy progest erone acetate 10 MG Oral Tablet [Splunk Developer a] orally 2.0 tablet daily 2022 active [...] 16.00 12/01/2023 Height 64.00 Notes Section * DIESEL LOCOMOTIVE ENGINEER Follow-Up - TRANSFER OF CARE TO DR. SINGH <html><head></head><body><div style=text-align:center><span class=clinicalNoteMacroHighlighted id=[id number] macroname =PracticeLetterhead spantype=macro title=#PracticeLetterhead><img amwzrm=885 [email or web address]?[email or web address]&iaxnKkpqdxysfuQw=[id number]" pwlql=368></span>

<strong>GYNECOLOGIC ONCOLOGY FOLLOW-UP VISIT</strong>
</div><div>
<strong>Patient Name:</strong> <span class=clinicalNoteMacroHighlighted id=[id number] macroname=PatientName spantype=macro title=#PatientName>PENG BRAVO</span> <strong>:</strong> <span class=clinicalNoteMacroHighlighted id=[id number] macroname=PatientDateOfBirth spantype=macro title=#PatientDateOfBirth>1990</span>
<strong>Date of Visit:</strong> <span class=clinicalNoteMacroHighlighted id=[id number] macroname=EffectiveDate spantype=macro title=#EffectiveDate>09/26/2023</span>
<strong>Referring Provider:</strong> <span class=clinicalNoteMacroHighlighted id=[id number] macroname=ReferringPhysician spantype=macro title=&quo t;#ReferringPhysician>September KADE Redman</span>
<strong>Attending: </strong> <span class=clinicalNoteMacroHighlighted id=[id number] macroname=AttendingPhysician spantype=macro title=#Attendi ngPhysician>Hortencia Greer (Gynecological/Oncology)</span>
&lt ;span>
<span class=clinicalNoteSectionShowSeparators clinicalNoteSectionVisible id=[id number] internalbreaksection=false originalname=Chief Complaint recognizeconcepts=true spantype=section suppressempty=false>Chief Complaint (Engineer/Conductor Oncology):</span></span>
</div><ul> <li>Transfer of care to Dr. 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
<span class=clinicalNoteSectionShowSeparators clinicalNoteSectionVisible id=s [id number] internalbreaksection=false originalname=HPI r ecognizeconcepts=true spantype=section suppressempty=false>History of Present Illness (Engineer/Conductor Oncology):</span>
Peng Bravo is a 32 yo [...] originalname=Genetic Testing recognizeconcepts=true spantype=section suppressempty=false>Gen etic Testing (Engineer/Conductor Oncology):</span>
None
<span><span><span&gt ;</span></span></span>
<span><span><span></span>& lt;/span></span></span></span>
<span><span><span><span class=clinicalNoteSectionShowSeparators clinicalNoteSectionVisible id=sectio [id number] internalbreaksection=false originalname=Interval History (Engineer/Conductor Oncology) recognizeconcepts=true spantype=section suppressempty=& quot;false>Interval History (Engineer/Conductor Oncology)</span></span></span>
Ms. Sukh Bravo is a 32 [...] her daughter's biological mother, who resides in [place]. She has had 2 separate episodes of [...] History:</span><ol> <li>PCOS</li> <li>AUB</li></ol>
<span class=clinicalNoteSectionShowSeparators clinicalNoteSectionVisible id=[id number] planning intern albreaksection=false originalname=Past Surgical History recognizeconcepts=&q uot;true spantype=section suppressempty=true>Surgical History:</span><ol> <li>Bunion removal</li> <li>Cholecystectomy 2016</li></ol>
<span class=clinicalNoteSectionShowSeparators clinicalNoteSectionVisible" id=[id number] internalbreaksection=false originalname=&quo t;Past Obstetrical and Gynecologic History recognizeconcepts=true spantype=s ection suppressempty=false>coater carbon paper History:</span><ul> <li>G0</li> <li>PCOS</li> <li>Last Pap 10/25/2022 NILM [...] recognizeconcepts=true" spantype=section suppressempty=false>Social History:</span>
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
Former cigarette use

<span [...] originalname=Physical Exam re cognizeconcepts=true spantype=section suppressempty=false>Physical Exam (Engineer/Conductor Oncology):</span>
General: alert, cooperative, no acute distress<b [...] Plan recognizeconcepts=true spantype=section suppressempt y=false>Assessment & Plan (Engineer/Conductor Oncology):</span>
Peng Bravo is a 32-year-old woman with EIN, currently, on progestin therapy with fertility preservation.

1. EIN, desiring fertility preservation</span>
</div><ul> <li>Transfer of care to Dr. Singh on 09/26/[address] rGeer's departure from the practice</li> <li>Tolerating Provera well [...] present were apprised of the use of [employer] remote documentation service and all parties consented [...]
[2025-04-06] MEDS: ONDANSETRON 2 MG/ML inj 4 MG IVP (16:54)
[2025-04-06 16:56] LABS: Lactate* 1.4 mmol/L (0.5-1.9)
--- OUTSIDE RECORDS SUMMARY | 2025-04-06 16:56 | XMS_ITS | CCD ---
Author Name Interface, I4Wpnhthe lity Address [address] [place] [address] [address] [address] [facility] Address [address] [facility] [address] [address] Care Team Providers Care Music Librarian Name Role Phone Junie Barnes MD Unavailable [...] - hx of EIN (medical management w/ Hotel Breakfast Attendant Onc) & desires weight loss; also recent ruptured hemorrhagic cyst / pain - consideration of ovarian suppression Ordered 03/28/2025 Physician Order Pelvic U/S w/tra nsvaginal & abdominal probe Irregular periods - hx of endometrial cancerPatient [place] center [place] Ordered Social History Date Name Value 11/02/2022 Sex Female
--- OUTSIDE RECORDS SUMMARY | 2025-04-06 16:57 | XMS_ITS ---
Author Name Interface, [id number] lity Address [address] [place] [address] [address] [address] [facility] Address [address] [facility] [address] [address] Support Name Relationship Address Phone Jose Traylor Mother Unknown Unavailable Barvo ZaidJuiceto Spouse Unknown Unavail able Allergies and [...] Ordered By Specimen Source Lab [place] [facility] [place] See attache alegre Medications Date Name Route Dose Frequency Instructions Start Date End Date Status Fill Status Indication 03/03 Furosem brittany Oral PO 1.0 tablet 2 tabs daily active 11/30 Probiot ics Oral uro womans probiotic active 03/03 Topiram ate Oral active 11/30 medroxy progest erone acetate 10 MG Oral Tablet [Hearing Consultant a] orally 2.0 tablet daily 2023 active EIN 07/27 medroxy progest erone acetate 10 MG Oral Tablet [Hearing Consultant a] orally 2.0 tablet daily 2023 active EIN 05/31 medroxy progest erone acetate 10 MG Oral Tablet [Hearing Consultant a] orally 2.0 tablet daily 2022 active [...] 97.60 12/01/2023 Weight 221.20 Notes Section * 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

<strong>GYNECOLOGIC ONCOLOGY FOLLOW-UP VISIT</strong>
</div><div>
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

post op
<span><span class=clinicalNoteSectionVisible id=[id number] internalbreaksection=false" originalname=HPI recognizeconcepts=true spantype=section suppressempty=false>History of Present Illness (Senior Quality Assurance Engineer Oncology):</span>
Pneg Bravo is a 33 yo premenopausal female [...] originalname=Genetic Testing recognizeconcepts=true sp antype=section suppressempty=false>Genetic Testing (Senior Quality Assurance Engineer Oncology):</sp an>
None
<span><span><span></span></span></spa n>
<span><span><span></span></span></span>
<span><span><span></span></span></span></span></span&gt ;
<span><span><span><span class=clinicalNoteSectionVisible id=[id number] internalbreaksection=false originalname= Interval History (Senior Quality Assurance Engineer Oncology) recognizeconcepts=true spantype=section&quot ; suppressempty=false>Interval History (Senior Quality Assurance Engineer Oncology)</span></span></s wynn>
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
<ul> <li>G0</li> <li>PCOS</li> <li>Last Pap 10/25/2022 NILM HPV negative, NILM in </li> <li>No history of abnormal Pap smears</li></ul>
<span></span>
<span></span>
<span><span class=clinicalNoteSectionVisible" id=[id number] internalbreaksection=false originalname="Allergies recognizeconcepts=true spantype=section suppressempty=&quot ;false>Allergies:</span>
<span class=clinicalNoteMaoWysiwyg id=[id number] macroname=Allergies parameters=ListType:Bul leted,ValueIfNull:NKDA spantype=macro title=#Allergies(ListType:Bulleted,Charisma ueIfNull:NKDA)><ul> <li>avocado</li> <li>banana</li></ul&g t;</span>
<span><span class=clinicalNoteSectionVisible id= [id number] internalbreaksection=false originalname=Medications recognizeconcepts=true spantype=section suppressempty=false&quo t;>Medications:</span>
<span class=clinicalNotRehabilitation Institute of Michiganysiw id=&quo t;[id number] macroname=CurrentMedications parameters=ListType:Bu lleted spantype=macro title=#CurrentMedications(ListType:Bulleted)><ul> [...] recognizeconcepts=true spantype=section suppressempty=false>Social History:</span>
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
Former cigarette use
<span class=clinicalNoteSectionVisible id=[id number] advisory intern albreaksection=false originalname=Health Maintenance: recognizeconcepts=&quo t;true spantype=section [...] internalbreaksection=false originalname=Physical Exam recognizeconcepts=true" spantype=section suppressempty=false>Physical Exam (Senior Quality Assurance Engineer Oncology):</span>
General: alert, cooperative, no acute distress
[...]
</td> <td>3.2</td> <td>
</td> </tr> </tbody></table></span>
<span [facility]=clinicalNoteMaReg[facility] id=[id number] macroname=RecentLabResultsTable parameters=OptionalFlowsheetCategory:Chemistries,Label:CMP spantype=macro title=#RecentLabResultsTable(OptionalFlowsheetCategory:Chemistries,Label:CMP) ></span>
<span class=clinicalNotGrand [facility] Center id=[id number] macroname=RecentLabResultsTable parameters=OptionalFlowsheetCate gory:Coags,Label:Coagulation spantype=macro title=#RecentLabResultsTable(Opt ionalFlowsheetCategory:Coags,Label:Coagulation)></span>
<span class=&quot ;[facility] jack[facility] streetNot[facility] id=[id number] macroname=RecentLabResul tsTable parameters=OptionalFlowsheetCategory:Tumor Markers spantype=macro&qu ot; title=#RecentLabResultsTable(OptionalFlowsheetCategory:Tumor Markers)> </span>

<span class=clinicalNoteSectionVisible" id=[id number] internalbreaksection=false originalname="Imaging recognizeconcepts=true spantype=section suppressempty=&quo t;false>Imaging:</span>
<strong>Pelvic ultrasound 10/26/2022
I mpression:</strong>
Diffusely thickened some but hypervascular endometrium [id number] mm. Mildly prominent ovarian volumes bilaterally with [...] Plan recognizeconcepts=true spantype=section supp ressempty=false>Assessment & Plan (Senior Quality Assurance Engineer Oncology):</span>
Peng Bravo is a 32-year-old woman [...] Pain recognizeconcepts=true spantype=section suppressempty=false>Pain Care Management:</span>& lt;br><span><span class=clinicalNotTrumbull Regional Medical CentercaitlynoWysiwyg id=[id number] macroname=PatientPainScale parameters=Label:Pain Scale: ,LookBackDays:0 ,ValueIfNull:Not recorded on visit spantype=macro title=#PatientPainScale(La bel:Pain Scale: ,LookBackDays:0,ValueIfNull:Not recorded on visit)>Pain Scale: 4</span></span></span>
<span><span>
<span class=clinica lNoteSectionVisible id=[id number] internalbreaksection=false&q uot; originalname=Patient Care Management recognizeconcepts=true spantype=&q uot;section suppressempty=false>Patient Care needs:</span>
<span class=clinicalNotTrumbull Regional Medical CentercroWysiwyg id=[id number] macroname=&quot ;DepressionStatus parameters=Label:Depressions Status: ,ValueIfNull:Not recorded on visit spantype=macro title=#DepressionStatus(Label:Depressions Status: ,ValueIfNull:Not recorded on visit)>Depressions Status: Was not screened Reason: Patient Refused; Screening Date: 09/26/2023</span>
Psycho- Social PHQ-9 Follow-up Plan (if applicable):
<span><span class=clinicalNotTrumbull Regional Medical CentercroWysiwyg id=[id number] macroname=PatientSmokingStatus parameters=Label:Smoking Status: ,ValueIf Null:Not recorded [...]
--- OUTSIDE RECORDS SUMMARY | 2025-04-06 16:57 | XMS_ITS ---
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 Medications Date Name Route Dose Frequency Instructions Start Date End Date Status Fill Status Indication 03/03 Furosem brittany Oral PO 1.0 tablet 2 tabs daily active 11/30 Probiot ics Oral uro womans probiotic active 03/03 Topiram ate Oral active 11/30 medroxy progest erone acetate 10 MG Oral Tablet [Concrete Pump Operator a] orally 2.0 tablet daily 2023 active EIN 07/27 medroxy progest erone acetate 10 MG Oral Tablet [Concrete Pump Operator a] orally 2.0 tablet daily 2023 active EIN 05/31 medroxy progest erone acetate 10 MG Oral Tablet [Concrete Pump Operator a] orally 2.0 tablet daily 2022 [...] 12/01/2023 Body Temperature 97.60 Notes Section * 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

<strong>GYNECOLOGIC ONCOLOGY FOLLOW-UP VISIT</strong>
</div><div>
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
follow up
<span class=clinicalNoteSectionShowSeparators clinicalNoteSectionVisible id=section [id number] internalbreaksection=false originalname=HPI recogniz econcepts=true spantype=section suppressempty=false>History of Present Illness (College Sports Coach Oncology):</span>
Peng Bravo is a 32 year [...] internalbreaksection=false originalname=Genetic Testing recognizeconcepts=true spantype=section suppressempty=false>Genetic Testing (College Sports Coach Oncology):</span>
None
<span><span><span></span ></span></span></span></span>
<span><span><span><span class=clinicalNoteSectionShowSeparators clinicalNoteSectionVisible id=s [id number] internalbreaksection=false originalname=Interval His tory (College Sports Coach Oncology) recognizeconcepts=true spantype=section suppressem pty=false>Interval History (College Sports Coach Oncology)</span></span></span>
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
G0
PCOS
Last Pap 10/25/2022 NILM HPV negative,, NILM in
No history of abnormal Pap smears

<span><span class=clinicalNoteSectionShowSeparators clinicalNoteSectionVisible id=[id number] internalbreaksection=false originalname=Allergies recognizeconcepts=true spantype=section suppressempty=false>Allergies:</span>
<span class=clinicalNoteMacroHighlighted id=[id number] macroname=Allergies parameters=ListType:Bulleted,ValueIfNull:NKDA spantype=macro title=#Allergies(ListType:Bulleted,ValueIfNull:NKDA)><ul> <li>avocado</li> <li>banana</li></ul></span>
<span><span class=clinicalNoteSectionShowSeparators clinicalNoteSectionVisible id=[id number] internalbreaksection=false originalname=Medications recognizeconcepts=true spantype=section suppressempty=false>Medications:</span>
<span class=clinicalNoteMacrWYighfloyd valley healthcareed id=[id number] macronam e=CurrentMedications parameters=ListType:Bulleted spantype=macro title=#CurrentMedications(ListType:Bulleted)><ul> <li>Megestrol [...] spantype=section suppressempty= false>Social History:</span>
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
Former cigarette use
[...] internalbreaksection=false originalname=Physical Exam recognizeconcepts=true spantype=section suppressempty=false>Physical Exam (College Sports Coach Oncology):</span>
General: NAD
HEENT: wnl
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
Peng Bravo is a 32-year-old woman [...] spantype=section suppressempty=false>Pain Care Management:</span>
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
--- OUTSIDE RECORDS SUMMARY | 2025-04-06 16:57 | XMS_ITS ---
Author Name Interface, [id number] lity Address [address] [facility] [address] [address] [facility] Address [address] [facility] [address] [address] Support Name Relationship Address Phone Jose Traylor [...] Ordered By Specimen Source Lab [place] [facility] [place] See attache alegre Medications Date Name Route Dose Frequency Instructions Start Date End Date Status Fill Status Indication 03/03 Furosem brittany Oral PO 1.0 tablet 2 tabs daily active 11/30 Probiot ics Oral uro womans probiotic active 03/03 Topiram ate Oral active 11/30 medroxy progest erone acetate 10 MG Oral Tablet [Granite Polisher a] orally 2.0 tablet daily 2023 active EIN 07/27 medroxy progest erone acetate 10 MG Oral Tablet [Granite Polisher a] orally 2.0 tablet daily 2023 active EIN 05/31 medroxy progest erone acetate 10 MG Oral Tablet [Granite Polisher a] orally 2.0 tablet daily 2022 active [...] 16.00 12/01/2023 Height 64.00 Notes Section * PRODUCT SUPPORT TECHNICIAN Follow-Up - TRANSFER OF CARE TO DR. SINGH <html><head></head><body><div style=text-align:center><span class=clinicalNoteMacroHighlighted id=[id number] macroname =PracticeLetterhead spantype=macro title=#PracticeLetterhead><img pdprwq=086 src=[email or web address]?[email or web address]&ehjsZqbyhpqjclYa=[id number]" dwxlx=460></span>

<strong>GYNECOLOGIC ONCOLOGY FOLLOW-UP VISIT</strong>
</div><div>
<strong>Patient Name:</strong> <span class=clinicalNoteMacroHighlighted id=[id number] macroname=PatientName spantype=macro title=#PatientName>PENG BRAVO</span> <strong>:</strong> <span class=clinicalNoteMacroHighlighted id=[id number] macroname=PatientDateOfBirth spantype=macro title=#PatientDateOfBirth>1990</span>
<strong>Date of Visit:</strong> <span class=clinicalNoteMacroHighlighted id=[id number] macroname=EffectiveDate spantype=macro title=#EffectiveDate>09/26/2023</span>
<strong>Referring Provider:</strong> <span class=clinicalNoteMacroHighlighted id=[id number] macroname=ReferringPhysician spantype=macro title=&quo t;#ReferringPhysician>September KADE Redman</span>
<strong>Attending: </strong> <span class=clinicalNoteMacroHighlighted id=[id number] macroname=AttendingPhysician spantype=macro title=#Attendi ngPhysician>Hortencia Greer (Gynecological/Oncology)</span>
&lt ;span>
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
</div><ul> <li>Transfer of care to Dr. 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
<span class=clinicalNoteSectionShowSeparators clinicalNoteSectionVisible id=s [id number] internalbreaksection=false originalname=HPI r ecognizeconcepts=true spantype=section suppressempty=false>History of Present Illness (Concrete Gun Operator Oncology):</span>
Peng Bravo is a 32 yo [...] originalname=Genetic Testing recognizeconcepts=true spantype=section suppressempty=false>Gen etic Testing (Concrete Gun Operator Oncology):</span>
None
<span><span><span&gt ;</span></span></span>
<span><span><span></span>& lt;/span></span></span></span>
<span><span><span><span class=clinicalNoteSectionShowSeparators clinicalNoteSectionVisible id=sectio [id number] internalbreaksection=false originalname=Interval History (Concrete Gun Operator Oncology) recognizeconcepts=true spantype=section suppressempty=& quot;false>Interval History (Concrete Gun Operator Oncology)</span></span></span>
Ms. Sukh Bravo is a 32 [...] her daughter's biological mother, who resides in [place]. She has had 2 separate episodes of [...] History:</span><ol> <li>PCOS</li> <li>AUB</li></ol>
<span class=clinicalNoteSectionShowSeparators clinicalNoteSectionVisible id=[id number] international trade specialist albreaksection=false originalname=Past Surgical History recognizeconcepts=&q uot;true spantype=section suppressempty=true>Surgical History:</span><ol> <li>Bunion removal</li> <li>Cholecystectomy 2016</li></ol>
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
Former cigarette use

<span [...] originalname=Physical Exam re cognizeconcepts=true spantype=section suppressempty=false>Physical Exam (Concrete Gun Operator Oncology):</span>
General: alert, cooperative, no acute distress<b [...] Plan recognizeconcepts=true spantype=section suppressempt y=false>Assessment & Plan (Concrete Gun Operator Oncology):</span>
Peng Bravo is a 32-year-old woman [...] present were apprised of the use of [employer] remote documentation service and all parties consented [...]
--- OUTSIDE RECORDS SUMMARY | 2025-04-06 16:57 | XMS_ITS ---
Author Name Interface, [id number] lity Address [address] [facility] [address] [address] [facility] Address [address] [facility] [address] [address] Support Name Relationship Address Phone Jose Traylor [...] Lab Address 08/19 [facility] other lab See strategies analyst d Medications Date Name Route Dose Frequency Instructions Start Date End Date Status Fill Status Indication 03/03 Furosem brittany Oral PO 1.0 tablet 2 tabs daily active 11/30 Probiot ics Oral uro womans probiotic active 03/03 Topiram ate Oral active 11/30 medroxy progest erone acetate 10 MG Oral Tablet [Wound Care Technician a] orally 2.0 tablet daily 2023 active EIN 07/27 medroxy progest erone acetate 10 MG Oral Tablet [Wound Care Technician a] orally 2.0 tablet daily 2023 active EIN 05/31 medroxy progest erone acetate 10 MG Oral Tablet [Wound Care Technician a] orally 2.0 tablet daily 2022 active [...] 12/01/2023 Body Temperature 97.60 Notes Section * MANAGER PULMONARY Follow-Up <html><head></head><body><div style=text-align:center><span class=clinicalNoteMacroHighlighted id=[id number] macroname= PracticeLetterhead spantype=macro title=#PracticeLetterhead><img intpat=593 [email or web address]?[email or web address]=[id number]" cvtfz=280></span>

<strong>GYNECOLOGIC ONCOLOGY FOLLOW-UP VISIT</strong>
</div><div>
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
follow up
<span class=clinicalNoteSectionShowSeparators clinicalNoteSectionVisible id=section [id number] internalbreaksection=false originalname=HPI recogniz econcepts=true spantype=section suppressempty=false>History of Present Illness (Dielectric Press Operator Oncology):</span>
Peng Bravo is a 32 year [...] internalbreaksection=false originalname=Genetic Testing recognizeconcepts=true spantype=section suppressempty=false>Genetic Testing (Dielectric Press Operator Oncology):</span>
None
<span><span><span></span ></span></span></span></span>
<span><span><span><span class=clinicalNoteSectionShowSeparators clinicalNoteSectionVisible id=s [id number] internalbreaksection=false originalname=Interval His tory (Dielectric Press Operator Oncology) recognizeconcepts=true spantype=section suppressem pty=false>Interval History (Dielectric Press Operator Oncology)</span></span></span>
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
G0
PCOS
Last Pap 10/25/2022 NILM HPV negative,, NILM in
No history of abnormal Pap smears

<span><span class=clinicalNoteSectionShowSeparators clinicalNoteSectionVisible id=[id number] internalbreaksection=false originalname=Allergies recognizeconcepts=true spantype=section suppressempty=false>Allergies:</span>
<span class=clinicalNoteMacroHighlighted id=[id number] macroname=Allergies parameters=ListType:Bulleted,ValueIfNull:NKDA spantype=macro title=#Allergies(ListType:Bulleted,ValueIfNull:NKDA)><ul> <li>avocado</li> <li>banana</li></ul></span>
<span><span class=clinicalNoteSectionShowSeparators clinicalNoteSectionVisible id=[id number] internalbreaksection=false originalname=Medications recognizeconcepts=true spantype=section suppressempty=false>Medications:</span>
<span class=clinicalNoteMacrIDighunitypoint health-methodist west hospitaled id=[id number] macronam e=CurrentMedications parameters=ListType:Bulleted spantype=macro title=#CurrentMedications(ListType:Bulleted)><ul> [...] spantype=section suppressempty= false>Social History:</span>
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
Former cigarette use
[...] internalbreaksection=false originalname=Physical Exam recognizeconcepts=true spantype=section suppressempty=false>Physical Exam (Dielectric Press Operator Oncology):</span>
General: NAD
HEENT: wnl
Lungs: No [...] & Plan recognizeconcepts=true spantype=section suppressempty=false">Assessment & Plan (Dielectric Press Operator Oncology):</span>
Peng Bravo is a 32-year-old [...] spantype=section suppressempty=false>Pain Care Management:</span>
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
--- OUTSIDE RECORDS SUMMARY | 2025-04-06 16:57 | XMS_ITS ---
Author Name Interface, [id number] lity Address [address] [address] [facility] Address [address] [address] Support Name Relationship Address Phone Jose Traylor [...] Ordered By Specimen Source Lab [place] [facility] [place] See attache alegre Medications Date Name Route Dose Frequency Instructions Start Date End Date Status Fill Status Indication 03/03 Furosem brittany Oral PO 1.0 tablet 2 tabs daily active 11/30 Probiot ics Oral uro womans probiotic active 03/03 Topiram ate Oral active 11/30 medroxy progest erone acetate 10 MG Oral Tablet [Timber Sprinkler a] orally 2.0 tablet daily 2023 active EIN 07/27 medroxy progest erone acetate 10 MG Oral Tablet [Timber Sprinkler a] orally 2.0 tablet daily 2023 active EIN 05/31 medroxy progest erone acetate 10 MG Oral Tablet [Timber Sprinkler a] orally 2.0 tablet daily 2022 active [...] 16.00 12/01/2023 Height 64.00 Notes Section * 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 SINGH <html><head></head><body><div style=text-align:center><span class=clinicalNoteMacroHighlighted id=[id number] macroname =PracticeLetterhead spantype=macro title=#PracticeLetterhead><img mbcmfz=595 [email or web address]&bgezUzooxblldbNd=[id number]" wsvff=484></span>

<strong>GYNECOLOGIC ONCOLOGY FOLLOW-UP VISIT</strong>
</div><div>
<strong>Patient Name:</strong> <span class=clinicalNoteMacroHighlighted id=[id number] macroname=PatientName spantype=macro title=#PatientName>PENG BRAVO</span> <strong>:</strong> <span class=clinicalNoteMacroHighlighted id=[id number] macroname=PatientDateOfBirth spantype=macro title=#PatientDateOfBirth>1990</span>
<strong>Date of Visit:</strong> <span class=clinicalNoteMacroHighlighted id=[id number] macroname=EffectiveDate spantype=macro title=#EffectiveDate>09/26/2023</span>
<strong>Referring Provider:</strong> <span class=clinicalNoteMacroHighlighted id=[id number] macroname=ReferringPhysician spantype=macro title=&quo t;#ReferringPhysician>September KADE Redman</span>
<strong>Attending: </strong> <span class=clinicalNoteMacroHighlighted id=[id number] macroname=AttendingPhysician spantype=macro title=#Attendi ngPhysician>Hortencia Greer (Gynecological/Oncology)</span>
&lt ;span>
<span class=clinicalNoteSectionShowSeparators clinicalNoteSectionVisible id=[id number] internalbreaksection=false originalname=Chief Complaint recognizeconcepts=true spantype=section suppressempty=false>Chief Complaint (Workplace Rehabilitation Officer Oncology):</span></span>
</div><ul> <li>Transfer of care to Dr. 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
<span class=clinicalNoteSectionShowSeparators clinicalNoteSectionVisible id=s [id number] internalbreaksection=false originalname=HPI r ecognizeconcepts=true spantype=section suppressempty=false>History of Present Illness (Workplace Rehabilitation Officer Oncology):</span>
Peng Bravo is a 32 yo [...] originalname=Genetic Testing recognizeconcepts=true spantype=section suppressempty=false>Gen etic Testing (Workplace Rehabilitation Officer Oncology):</span>
None
<span><span><span&gt ;</span></span></span>
<span><span><span></span>& lt;/span></span></span></span>
<span><span><span><span class=clinicalNoteSectionShowSeparators clinicalNoteSectionVisible id=sectio [id number] internalbreaksection=false originalname=Interval History (Workplace Rehabilitation Officer Oncology) recognizeconcepts=true spantype=section suppressempty=& quot;false>Interval History (Workplace Rehabilitation Officer Oncology)</span></span></span>
Ms. Sukh Bravo is a 32 [...] her daughter's biological mother, who resides in [place]. She has had 2 separate episodes of [...] History:</span><ol> <li>PCOS</li> <li>AUB</li></ol>
<span class=clinicalNoteSectionShowSeparators clinicalNoteSectionVisible id=[id number] sports management internship albreaksection=false originalname=Past Surgical History recognizeconcepts=&q uot;true spantype=section suppressempty=true>Surgical History:</span><ol> <li>Bunion removal</li> <li>Cholecystectomy 2016</li></ol>
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
Former cigarette use

<span [...] originalname=Physical Exam re cognizeconcepts=true spantype=section suppressempty=false>Physical Exam (Workplace Rehabilitation Officer Oncology):</span>
General: alert, cooperative, no acute distress<b [...] Plan recognizeconcepts=true spantype=section suppressempt y=false>Assessment & Plan (Workplace Rehabilitation Officer Oncology):</span>
Peng Bravo is a 32-year-old [...] present were apprised of the use of [employer] remote documentation service and all parties consented [...]
--- OUTSIDE RECORDS SUMMARY | 2025-04-06 16:57 | XMS_ITS | CCD ---
Author Name Interface, [id number] lity Address [address] [place] [address] [address] [address] [facility] Address [address] [facility] [facility] [address] [address] Care Team Providers Care Trade Mark Examiner Name Role Phone Junie Barnes MD Unavailable [...] - hx of EIN (medical management w/ Manager Infusion Onc) & desires weight loss; also recent ruptured hemorrhagic cyst / pain - consideration of ovarian suppression Ordered 03/28/2025 Physician Order Pelvic U/S w/tra nsvaginal & abdominal probe Irregular periods - hx of endometrial cancerPatient [place] Ordered Social History Date Name Value 11/02/2022 Sex Female
--- OUTSIDE RECORDS SUMMARY | 2025-04-06 16:57 | XMS_ITS ---
Author Name Interface, [id number] lity Address [address] [place] [address] [address] [address] [facility] Address [address] [facility] [address] [address] Support Name Relationship Address Phone Jose Traylor [...] By Specimen Source [place] [facility] [place] See attache alegre Medications Date Name Route Dose Frequency Instructions Start Date End Date Status Fill Status Indication 03/03 Furosem brittany Oral PO 1.0 tablet 2 tabs daily active 11/30 Probiot ics Oral uro womans probiotic active 03/03 Topiram ate Oral active 11/30 medroxy progest erone acetate 10 MG Oral Tablet [Medical Supervisor a] orally 2.0 tablet daily 2023 active EIN 07/27 medroxy progest erone acetate 10 MG Oral Tablet [Medical Supervisor a] orally 2.0 tablet daily 2023 active EIN 05/31 medroxy progest erone acetate 10 MG Oral Tablet [Medical Supervisor a] orally 2.0 tablet daily 2022 active [...] 97.60 12/01/2023 Weight 221.20 Notes Section * 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

<strong>GYNECOLOGIC ONCOLOGY FOLLOW-UP VISIT</strong>
</div><div>
<strong>Patient Name:</strong> [...] internalbreaksection="false originalname=Chief Complaint recognizeconcepts=true spantype="section suppressempty=false>Chief Complaint (Business Systems Architect Oncology):</span></span>

post op
<span><span class=clinicalNoteSectionVisible id=[id number] internalbreaksection=false" originalname=HPI recognizeconcepts=true spantype=section suppressempty=false>History of Present Illness (Business Systems Architect Oncology):</span>
Peng Bravo is a 33 yo [...] originalname=Genetic Testing recognizeconcepts=true sp antype=section suppressempty=false>Genetic Testing (Business Systems Architect Oncology):</sp an>
None
<span><span><span></span></span></spa n>
<span><span><span></span></span></span>
<span><span><span></span></span></span></span></span&gt ;
<span><span><span><span class=clinicalNoteSectionVisible id=[id number] internalbreaksection=false originalname= Interval History (Business Systems Architect Oncology) recognizeconcepts=true spantype=section&quot ; suppressempty=false>Interval History (Business Systems Architect Oncology)</span></span></s wynn>
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
<ul> <li>G0</li> <li>PCOS</li> <li>Last Pap 10/25/2022 NILM HPV negative, NILM in </li> <li>No history of abnormal Pap smears</li></ul>
<span></span>
<span></span>
<span><span class=clinicalNoteSectionVisible" id=[id number] internalbreaksection=false originalname="Allergies recognizeconcepts=true spantype=section suppressempty=&quot ;false>Allergies:</span>
<span class=clinicalNoteMaoWysiwyg id=[id number] macroname=Allergies parameters=ListType:Bul leted,ValueIfNull:NKDA spantype=macro title=#Allergies(ListType:Bulleted,Charisma ueIfNull:NKDA)><ul> <li>avocado</li> <li>banana</li></ul&g t;</span>
<span><span class=clinicalNoteSectionVisible id= [id number] internalbreaksection=false originalname=Medications recognizeconcepts=true spantype=section suppressempty=false&quo t;>Medications:</span>
<span class=clinicalNotMcKenzie Memorial Hospitalysiw id=&quo t;[id number] macroname=CurrentMedications parameters=ListType:Bu lleted spantype=macro [...] recognizeconcepts=true spantype=section suppressempty=false>Social History:</span>
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
Former cigarette use
<span class=clinicalNoteSectionVisible id=[id number] internet marketing assistant albreaksection=false originalname=Health Maintenance: recognizeconcepts=&quo t;true spantype=section suppressempty=false>Health [...] internalbreaksection=false originalname=Physical Exam recognizeconcepts=true" spantype=section suppressempty=false>Physical Exam (Business Systems Architect Oncology):</span>
General: alert, cooperative, no acute distress
[...]
</td> <td>3.2</td> <td>
</td> </tr> </tbody></table></span>
<span [facility] id=[id number] macroname=RecentLabResultsTable parameters=OptionalFlowsheetCategory:Chemistries,Label:CMP spantype=macro title=#RecentLabResultsTable(OptionalFlowsheetCategory:Chemistries,Label:CMP) ></span>
<span [facility]Not[facility] id=[id number] macroname=RecentLabResultsTable parameters=OptionalFlowsheetCate gory:Coags,Label:Coagulation spantype=macro title=#RecentLabResultsTable(Opt ionalFlowsheetCategory:Coags,Label:Coagulation)></span>
<span class=&quot ;[facility] id=[id number] macroname=RecentLabResul tsTable parameters=OptionalFlowsheetCategory:Tumor Markers spantype=macro&qu ot; title=#RecentLabResultsTable(OptionalFlowsheetCategory:Tumor Markers)> </span>

<span class=clinicalNoteSectionVisible" id=[id number] internalbreaksection=false originalname="Imaging recognizeconcepts=true spantype=section suppressempty=&quo t;false>Imaging:</span>
<strong>Pelvic ultrasound 10/26/2022
I mpression:</strong>
Diffusely thickened some but hypervascular endometrium grlppzhdo32 mm. Mildly prominent ovarian volumes bilaterally with [...] Plan recognizeconcepts=true spantype=section supp ressempty=false>Assessment & Plan (Business Systems Architect Oncology):</span>
Peng Bravo is a 32-year-old woman [...] Pain recognizeconcepts=true spantype=section suppressempty=false>Pain Care Management:</span>& lt;br><span><span class=clinicalNotSelect [facility], AvoncaitlynoWysiwyg id=[id number] macroname=PatientPainScale parameters=Label:Pain Scale: ,LookBackDays:0 ,ValueIfNull:Not recorded on visit spantype=macro title=#PatientPainScale(La bel:Pain Scale: ,LookBackDays:0,ValueIfNull:Not recorded on visit)>Pain Scale: 4</span></span></span>
<span><span>
<span class=clinica lNoteSectionVisible id=[id number] internalbreaksection=false&q uot; originalname=Patient Care Management recognizeconcepts=true spantype=&q uot;section suppressempty=false>Patient Care needs:</span>
<span class=clinicalNotSelect [facility], AvoncroWysiwyg id=[id number] macroname=&quot ;DepressionStatus parameters=Label:Depressions Status: ,ValueIfNull:Not recorded on visit spantype=macro title=#DepressionStatus(Label:Depressions Status: ,ValueIfNull:Not recorded on visit)>Depressions Status: Was not screened Reason: Patient Refused; Screening Date: 09/26/2023</span>
Psycho- Social PHQ-9 Follow-up Plan (if applicable):
<span><span class=clinicalNotSelect [facility], AvoncroWysiwyg id=[id number] macroname=PatientSmokingStatus parameters=Label:Smoking Status: ,ValueIf Null:Not recorded [...]
[2025-04-06 17:03] LABS: Immature Granulocytes Abs Auto 0.00 K/uL (0.00-0.30); Lymphocytes Absolute Auto 2.10 K/uL (0.90-2.90); Slide Review Reflex No
[2025-04-06 17:18] LABS: Albumin* 4.7 g/dL (3.3-5.0); Chloride* 100 mmol/L (96-114)
[2025-04-06 17:19] LABS: Potassium* 4.1 mmol/L (3.6-5.1); Sodium* 134 mmol/L (135-149)
[2025-04-06 17:21] LABS: Blood Urea Nitrogen* 7 mg/dL (5-24); Creatinine* 0.7 mg/dL (0.5-1.5); Est. Creatinine Clearance* 97.79; Estimated Glomerular Filt Rate 116 ml/min
[2025-04-06 17:22] LABS: Alanine Aminotransferase* 37 U/L (4-35); Alkaline Phosphatase* 91 U/L (40-150); Anion Gap 8 mEq/L (7-15); Aspartate Amino Transferase* 35 U/L (12-35); Bilirubin Direct* 0.5 mg/dL (0.0-0.5); Bilirubin Total* 2.7 mg/dL (0.1-1.5); Calcium* 9.0 mg/dL (8.4-10.6); Carbon Dioxide* 26 mmol/L (20-32); Glucose* 98 mg/dL (60-115); Total Protein* 8.4 g/dL (6.0-8.3)
--- NOTE | 2025-04-06 17:37 | CRLHL7_ITS ---
For Patients: As a result of the Century Cures Act, medical imaging exams and procedure reports are released immediately into your electronic medical record. You may view this report before your referring provider. If you have questions, please contact your health care provider. INDICATION: Left lower quadrant abdominal pain. TECHNIQUE: CT abdomen and pelvis acquired with 107 cc Isovue 370 IV contrast. COMPARISON: CT abdomen and pelvis 08/28/2016. FINDINGS: Lower chest: Unremarkable. Liver: No acute abnormality. Ill-defined hypoattenuation along the falciform ligament likely reflecting focal fat deposition, similar to prior. Gallbladder and bile ducts: Cholecystectomy. No suspicious biliary dilatation. Pancreas: Unremarkable. Spleen: Unremarkable. Adrenal glands: Unremarkable. Kidneys: Symmetric renal enhancement. No hydronephrosis or hydroureter. No urinary calculi. GI tract: No bowel obstruction. Colonic diverticulosis with mild pericolonic fat stranding along the descending colon near and inflamed diverticulum, compatible with mild acute diverticulitis. No pericolonic fluid collection identified. Normal appendix. Vasculature: No abdominal aortic aneurysm. Grossly patent vasculature. Lymph nodes: No suspicious lymphadenopathy. Peritoneum/Abdominal Wall: No ascites or pneumoperitoneum. No acute abdominal wall abnormality. Pelvis: Mild bladder wall thickening. No suspicious adnexal mass. Bones: No acute abnormality. Prominent degenerative changes at L5-S1 with moderate to advanced disc space height loss, increased compared to prior. IMPRESSION: 1. Mild acute uncomplicated descending colonic diverticulitis. 2. Mild bladder wall thickening. Correlate for cystitis. Please note that all CT scans at this facility use dose modulation, iterative reconstruction, and/or weight-based dosing when appropriate to reduce radiation dose to as low as reasonably achievable. Dictated by Cruz Hadley MD @ 04/06/2025 7:14:47 PM (Electronically Signed)
== END 2025-04-06 20:18 | disposition home or self-care (01) ==
PROVIDERS: Emergency Provider Family Medicine; PCP Internal Medicine
DX: K57.32 Diverticulitis of large intestine without perforation or abscess without bleeding (principal)
CPT/HCPCS: 36415; 74177; 80048; 80076; 81001; 81025; 82150; 83605; 83690; 85025; 86140; 87086; 96374; 96375; 99284; 99285; J1171; J1885; J2405; J7030; Q9967